=== PATIENT | female | born 1955 | race Caucasian/White ===

== ENCOUNTER 2018-03-03 20:46 | Emergency (ER) | payer OTHER, MEDICARE ==
[2018-03-03] MEDS: AUGMENTIN 875 MG TAB PO (21:48)
== END 2018-03-03 21:54 | disposition home or self-care (01) ==
LOC: M ED 20:46
DX: S51.851A Open bite of right forearm, initial encounter (principal); M70.32 Other bursitis of elbow, left elbow; W54.0XXA Bitten by dog, initial encounter; W22.09XA Striking against other stationary object, initial encounter; Y92.89 Other specified places as the place of occurrence of the external cause; F32.9 Major depressive disorder, single episode, unspecified; G43.909 Migraine, unspecified, not intractable, without status migrainosus; M79.7 Fibromyalgia; Z79.899 Other long term (current) drug therapy; Z79.84 Long term (current) use of oral hypoglycemic drugs; Z79.82 Long term (current) use of aspirin; F17.210 Nicotine dependence, cigarettes, uncomplicated
CPT/HCPCS: 99282

== ENCOUNTER → 2019-04-30 | Outpatient (REF) | payer OTHER ==
[~2019-04-30] MED LIST: ASPI1CHW2; AUGM875T28 PO; CEPH500C; FEXO180T58; GLUCCAP13; HYDR-3713; IPRAT; LISI-538; MELO15TA28; METF500T13; PROBCAP2 PO; ROPI1TAB; SM M250T; TRAZ150T90; VENL75TA2
== END ==
LOC: M LAB REF 10:51
PROVIDERS: ATTEND Dermatology
DX: D48.5 Neoplasm of uncertain behavior of skin (principal)

== ENCOUNTER → 2019-09-17 | Outpatient (CLI) | payer OTHER ==
[~2019-09-17] MED LIST changes: -ROPI1TAB; +ROPI1TAB3
--- NOTE | 2019-09-29 02:57 | ECWPNPC ---
PATIENT NAME: KELLY BLEVINS : 1955 GENDER: FEMALE VISIT DATE: 09/17/2019 DISCHARGE DATE: 09/17/19 1222 VISIT LOCKED DATE TIME: PHYSICIAN: JORGE A SHAH MD RESOURCE: JORGE A SHAH MD REASON FOR APPOINTMENT 1. NECK/BACK HISTORY OF PRESENT ILLNESS NEW PATIENT CONSULT: WHEN DID YOUR PAIN FIRST START? . BRIEFLY DESCRIBE HOW YOUR PAIN STARTED? . HOW DOES YOUR PAIN CHANGE WITH TIME? . DOES YOUR PAIN AWAKEN YOU FROM SLEEP? . HOW MANY HOURS OF SLEEP DO YOU NORMALLY GET? . ANY DIAGNOSTIC TESTING? . FACILITY WHERE TESTS WERE DONE? ____. PAIN TREATMENT TREATMENT YES CANCER HAVE YOU EVER HAD ANY TYPE OF CANCER?NO NO. 63 YEAR OLD FEMALE PATIENT WITH A HISTORY OF CHRONIC MULTIPLE BODY PAIN. THE PATIENT DESCRIBES THE PAIN ACHING, BURNING, SHARP, TENDER, SHOOTING WITH A PAIN SCORE OF 6-10/10 DEPENDING ON PHYSICAL ACTIVITY. THE PATIENT STATES SHE HAS PAIN OVER MULTIPLE AREAS OF HER BODY, BUT THE WORST PAIN IS IN HER LOWER BACK. THE PATIENT SAYS SHE WAS DIAGNOSED WITH FIBROMYALGIA AND HAS TRIED INTERVENTIONS, SUCH TRIGGER POINT INJECTIONS, BUT HER PAIN PERSISTS. THE PATIENT SAYS SHE IS CURRENTLY USING IBUPROFEN 800 MG 1 TABLET NEEDED UP TO 3 TIMES DAILY AND MELOXICAM 15 MG ONCE DAILY, AND SHE WAS ALSO PREVIOUSLY USING HYDROCODONE-ACETAMINOPHEN 5-325 MG BUT WAS NOT PRESCRIBED IT IN THE LAST 3 MONTHS. PATIENT DENIES UNEXPLAINABLE WEIGHT LOSS, FEVER, CHILLS, NEW CHANGES ON HER URINARY OR BOWEL CONTROL. PAIN SCREENING: PATIENT HAS A COMPLAINT OF ACUTE OR CHRONIC PAIN :YES FALL RISK SCREENING: SCREENING : NO FALLS IN THE PAST YEAR. LANDON INVENTORY: QUESTIONNAIRE ASSESSEDTBD SCORE VALUE CALCULATED TBD CURRENT MEDICATIONS TAKING IBUPROFEN 800 MG TABLET 1 TABLET WITH FOOD OR MILK NEEDED ORALLY THREE TIMES A DAY TAKING OXYBUTYNIN CHLORIDE 5 MG TABLET 1 TABLET ORALLY 3 TIMES A DAY TAKING TAB-A-MARGY - TABLET 1 TABLET ORALLY ONCE A DAY TAKING VENLAFAXINE HCL 75 MG TABLET 1 TABLET WITH FOOD ORALLY TWICE A DAY TAKING TOPIRAMATE 50 MG TABLET 1 TABLET ORALLY TWICE A DAY TAKING MELOXICAM 15 MG TABLET 1 TABLET ORALLY ONCE A DAY TAKING TRAZODONE HCL 150 MG TABLET 1 TABLET AT BEDTIME NEEDED ORALLY ONCE A DAY TAKING LISINOPRIL 20 MG TABLET 1 TABLET ORALLY ONCE A DAY TAKING ASPIR-LOW 81 MG TABLET DELAYED RELEASE 1 TABLET ORALLY ONCE A DAY TAKING GLUCOSAMINE-MSM COMPLEX-COLLGN - CAPSULE 1000 MG ORALLY DAILY TAKING MAGNESIUM 400 MG CAPSULE 2 TABLETS ORALLY ONCE A DAY TAKING ROPINIROLE HCL 1 MG TABLET 1 TABLET 1 TO 3 HOURS BEFORE BEDTIME ORALLY ONCE A DAY TAKING ANORO ELLIPTA 62.5-25 MCG/INH AEROSOL POWDER BREATH ACTIVATED 1 PUFF INHALATION ONCE A DAY TAKING HYDROCODONE-ACETAMINOPHEN 5-325 MG TABLET 1 TABLET NEEDED ORALLY EVERY 6 HOURS NEEDED NOT-TAKING AMOXICILLIN 500 MG CAPSULE 1 CAPSULE ORALLY TWO TIMES A DAY NOT-TAKING FROVA 2.5 MG TABLET 1 TABLET NEEDED ONE TIME ORALLY ONCE A DAY NOT-TAKING CEPHALEXIN 500 MG CAPSULE 2 CAPSULES ORALLY EVERY 12 HRS MEDICATION LIST REVIEWED AND RECONCILED WITH THE PATIENT PAST MEDICAL HISTORY DIABETES TYPE II ANXIETY DEPRESSION FIBROMYALGIA INSOMNIA CHRONIC BACK PAIN CHRONIC NECK PAIN OBESITY TINNITUS 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 HYPERTENSION ALLERGIES PERCOCET: SPACEY, CONFUSION - SIDE EFFECTS SURGICAL HISTORY EXCISION LEFT NOSE BCC 1986 APPENDECTOMY 1974 BILATERAL CARPAL TUNNEL SURGERY BILATERAL CATARACT SURGERY 1994 LAMINECTOMY C2-C5 1999 LEFT KNEE REPLACEMENT 2012 FAMILY HISTORY FATHER: 54 YRS, ME MOTHER: ALIVE 84 YRS, DEMENTIA, DIAGNOSED WITH DIABETES, HYPERTENSION SIBLINGS: ALIVE, BROTHER-DEPRESSION, EARLY ONSET OF DEMENTIA SISTER-DEPRESSION PATERNAL GRAND FATHER: ME PATERNAL GRAND MOTHER: GLAUCOMA, MUSCULAR DEGENERATION MATERNAL GRAND FATHER: ME MATERNAL GRAND MOTHER: PANCREATIC CA,GLAUCOMA, HYPERTENSION, OTHER MALIGNANT NEOPLASM OF UNSPECIFIED SITE DENIES FAMILY HX OF MM. SOCIAL HISTORY GENERAL: TOBACCO USE ARE YOU A:CURRENT SMOKER ARE YOU INTERESTED IN QUITTING?NOT READY TO QUIT COUNSELED THE PATIENT ON SMOKING EFFECTS, EDUCATION [id number]/27/2020 HOW MANY CIGARETTES A DAY DO YOU SMOKE?21-30 PATIENT COUNSELED ON THE DANGERS OF TOBACCO USE AND URGED TO QUIT:09/17/2019 HAVE YOU HAD A PNEUMOVAX VACCINE?YES 07/2017 VAPORNO E-CIGARETTENO HIV / HEP-C SCREENING HIV TEST OFFERED TO PATIENT:YES DATE OFFERED:06/10/2017 TEST ACCEPTED:NO HEP-C TEST OFFERED TO PATIENT:YES DATE OFFERED:06/10/2017 REASON:PATIENT DECLINED TEST ACCEPTED:NO REASON:PATIENT DECLINED OTHERS AT HOME: SON AND GRANDDAUGHTER. EDUCATION LEVEL OF EDUCATION:CRIMINAL COURT JUDGE'S DEGREE IN BUSINESS MANAGEMENT DIET: REGULAR. LANGUAGE LANGUAGES SPOKEN:ISRAELI DOMESTIC VIOLENCE DO YOU FEEL SAFE IN YOUR ENVIRONMENT?YES NEW PATIENT PAIN DIARY PATIENT DESCRIBES PAIN :ACHING, BURNING, SHARP, TENDER, SHOOTING FROM 0-10, WHAT LEVEL IS YOUR PAIN TODAY?9 PRECIPITATING FACTORS MOVEMENT, STANDING, BENDING, LIFTING ALLEVIATING FACTORS SITTING, LYING DOWN, MEDICATION, OCCASIONALLY HEAT IMPACT ON FUNCTION DIFFICULT TO STAND TO DO DISHES, GETTING OUT OF BATHTUB OR SHOWER, GOING UP OR DOWN STAIRS, SHOPPING IS THERE A CHANCE YOU COULD BE ?NO HAVE YOU BEEN SICK IN THE LAST WEEK (COLD, COUGH, FEVER, FLU, ETC)YES DO YOU TAKE ANY BLOOD THINNERS?NO DO YOU HAVE ANY RASHES OR OPEN SORES?NO ANY CHANGE IN BOWEL OR BLADDER CONTROL?YES BLADDER - FREQUENCY FOR 1 MONTH. [facility] WILL NOTIFY PRIMARY CARE PROVIDER. [facility] HAS SOME INCONTINENCE FOR PAST 6 MONTHS. ARE YOU ALLERGIC TO SHELLFISH OR IV DYE?NO ARE YOU DIABETIC?YES DO YOU HAVE A PACEMAKER OR DEFIBRILLATOR?NO ANY NEW PATTERNS OF PAIN OR NUMBNESS?YES PAIN IN NECK WHEN TURNS TO RIGHT SIDE AND LEFT UPPER ARM STIFFNESS FOR MORE THAN 1 MONTH HAVE YOU FALLEN IN THE LAST 6 MONTHS?NO DO YOU USE ANY TYPE OF TOBACCO (SMOKE, SMOKELESS, CHEW, ETC.)YES ARE YOU ABUSED, NEGLECTED, OR IN AN UNSAFE ENVIRONMENT?NO DO YOU HAVE THOUGHTS OF HURTING YOURSELF OR SOMEONE ELSE?NO DO YOU NEED ANY PRESCRIPTIONS?YES HYDROCODONE 5/325 MG DO YOU HAVE ANY OTHER QUESTIONS OR CONCERNS?NO INTENSITY SCALE REVIEWEDNUMBER RECREATIONAL DRUG USE DRUG USE?NO PATIENT DENIES ABUSE OR MISSUSED OF ANY MEDICATION NO MISUSE OF MEDICATIONS. PATIENT DENIES USE OF ANY ILLEGAL SUBSTANCE INCLUDING MARIJUANA OR COCAINE NO MARIJUANA OR COCAINE. [facility] USED MARIJUANA TEENAGER ONLY. EXERCISE: NO REGULAR EXERCISE. 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 PENITENTIARY NEEDED?NO PAIN CLINIC PFS, CLERGY, PUBLIC HEALTH REFERRALS PFS REFERRAL NEEDED?NO CLERGY REFERRAL NEEDED?NO PUBLIC HEALTH REFERRAL NEEDED?NO WAS THE PROVIDER NOTIFIED OF ANY PERTINENT INFO?NO HAS THE PATIENT BEEN EDUCATED REGARDING HIS/HER PLAN OF CARE?YES HAS THE PATIENT BEEN EDUCATED REGARDING PAIN, THE RISK FOR PAIN, THE IMPORTANCE OF EFFECTIVE PAIN MANAGEMENT, AND THE PAIN ASSESSMENT PROCESS?YES LATEX QUESTIONNAIRE LATEX ALLERGY : HAVE YOU EVER DEVELOPED ANY TYPE OF REACTION AFTER HANDLING LATEX PRODUCTS SUCH RUBBER GLOVES, CONDOMS, DIAPHRAGMS, BALLOONS, SOCKS, OR UNDERWEAR?NO LATEX ALLERGY : HAVE YOU EVER DEVELOPED ANY TYPE OF REACTION DURING OR AFTER DENTAL APPOINTMENT, VAGINAL/RECTAL EXAMINATION, SURGICAL PROCEDURE, OR ANY OTHER EXPOSURE?NO DATE ASKED : 04/30/2019 LATEX RISK : HAVE YOU EVER HAD ANY DIFFICULTY BREATHING OR HIVES AFTER EATING OR HANDLING ANY FRUITS, OR VEGETABLES; SUCH KIWI, BANANAS, STONE FRUITS, OR CHESTNUTSNO LATEX RISK : DO YOU HAVE A PREVIOUS PERSONAL HISTORY OF MORE THAN NINE SURGERIES, SPINA BIFIDA, OR REPEATED CATHERIZATIONS? NO LATEX RISK : ARE YOU FREQUENTLY EXPOSED TO LATEX PRODUCTS IN YOUR OCCUPATION?NO CAFFEINE CAFFEINE USE?YES HOW OFTEN AND HOW MUCH? 8 CUPS OF HALF-CAFF COFFEE PER DAY ADVANCE DIRECTIVE ADVANCE DIRECTIVE DISCUSSED WITH PATIENT:YES INFORMATION OFFERED AND DECLINED. RASTAFARI [id number] MANDAEN MARITAL STATUS: . 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 HOSPITALIZATION/MAJOR DIAGNOSTIC PROCEDURE SURGERIES CHILDBIRTH 1977 REVIEW OF SYSTEMS REVIEWED BY: PROVIDER: JORGE A SHAH MD . CONSTITUTIONAL: ANY CHANGE IN YOUR MEDICAL CONDITION? NO . CHILLS NO . FEVER NO . INFECTION: DO YOU HAVE NEW INFECTIONS? NO . DO YOU HAVE HISTORY OF MRSA? NO . MUSCULOSKELETAL: ANY NEW PATTERNS OF PAIN OR NUMBNESS? YES . SYTEMIC LUPUS STATES HAS LUPUS-LIKE ANTIBODIES BUT WAS TOLD IS PROBABLY DUE TO FIBROMYALGIA . GASTROENTEROLOGY: ANY NEW CHANGE IN BOWEL CONTROL? NO . BARRETTS ESOPHAGUS NO . CIRRHOSIS NO . HEPATITIS NO . LIVER FAILURE NO . ACID REFLUX NO . UNEXPLAINED WEIGHT LOSS NO . GENITOURINARY: ANY NEW CHANGE IN BLADDER CONTROL? YES . IS THERE A CHANCE YOU COULD BE ? NO . HEMATOLOGY/LYMPH: DO YOU TAKE ANY BLOOD THINNERS? (FOR EXAMPLE- COUMADIN, PLAVIX, AGGRENOX, PLATEL, PRADAXA, OR XARELTO) NO . WHEN WAS YOUR LAST DOSE? DATE: TIME: . LOW PLATELET COUNT NO . SICKLE CELL DISEASE NO . VON WILLIEBRANDS NO . FACTOR V LEIDEN NO . THALLASEMIA NO . ANEMIA NO . EASY BRUISING YES . NEUROLOGY: HAVE YOU FALLEN IN THE PAST 12 MONTHS? NO . ANY NEW EXTREMITY NUMBNESS OR WEAKNESS? NO . HEAD INJURY YES - FELL DOWN A FLIGHT OF STAIRS AT AGE 3 - HAD EPILEPSY UNTIL AGE 17 . DEMENTIA NO . CEREBRAL PALSY NO . MULTIPLE SCLEROSIS NO . DIZZINESS YES . HEADACHE NO . STROKES YES . VERTIGO YES . CARDIOLOGY: DO YOU HAVE A PACEMAKER OR DEFIBRILLATOR? NO . ANGINA NO . HEART ATTACK NO . HEART SURGERY NO . CONGESTIVE HEART FAILURE/FLUID OVERLOAD NO . CHEST PAIN NO . HIGH BLOOD PRESSURE YES . IRREGULAR HEART BEAT NO . RESPIRATORY: HAVE YOU BEEN SICK IN THE PAST WEEK? YES - SINUS INFECTION . FEVER NO . FLU LIKE SYMPTOMS? NO . CPAP NO . BYPAP NO . ASTHMA NO . EMPHYSEMA NO . CHRONIC LUNG DISEASES NO . SHORTNESS OF BREATH ON EXERTION YES . DO YOU USE ANY TYPE OF TOBACCO (SMOKE, SMOKELESS, CHEW)? YES . COUGH NO . SNORING NO . INTEGUMENTARY: DO YOU HAVE ANY RASHES OR OPEN SORES? NO . ALLERGIC/IMMUNO: ARE YOU ALLERGIC TO IV DYE? NO . ANY NEW ALLERGIES? NO . PSYCHIATRIC: DO YOU HAVE THOUGHTS OF HURTING YOURSELF OR SOMEONE ELSE? NO . ARE YOU ABUSED, NEGLECTED, OR IN AN UNSAFE ENVIRONMENT? NO . ENDOCRINOLOGY: ARE YOU DIABETIC? YES . THYROID DISORDER NO . OTHER: DO YOU NEED ANY PRESCRIPTIONS? NO . IF YES, PLEASE LIST: ____ . ANY NEW PROBLEMS WITH YOUR MEDICATIONS? NO . WHEN DID YOU LAST EAT? ____ . WHEN DID YOU LAST DRINK? ____ . WHAT DID YOU LAST DRINK? ____ . NAME OF PERSON DRIVING YOU HOME? ____ . DO YOU HAVE ANY OTHER QUESTIONS OR CONCERNS NO . VITAL SIGNS WT 289 LBS, HT 66 IN, BMI 46.64 INDEX, BP 145/64 MM HG, HR 64 /MIN, RR 18 /MIN, TEMP 96.6 F, OXYGEN SAT % 91%, NA INITIALS AW 0950, REVIEWED BY: LS. EXAMINATION GENERAL EXAMINATION: PATIENT IS ALERT O X 3 AND COOPERATIVE. LUNGS CLEAR, TO AUSCULTATION. HEART: NO MURMURS OR GALLOPS; FACIAL CRANIAL NERVES ARE GROSSLY NORMAL. GOOD SYMMETRY OF FACIAL MUSCLE MOVEMENT. NORMAL VISUAL GRIMM. ANTALGIC WALK. PATIENT IS LIMPING FROM THE LEFT LEG, WHICH IS WEAKER AT EXTENSION AND FLEXION. STRAIGHT LEG RAISE OF THE LEFT LEG IS POSITIVE AT 60 DEGREES FOR RADICULOPATHY. TENDERNESS OVER THE PARASPINAL MUSCLE GROUP OF THE LOW BACK. PRESENCE OF BANDS OF TISSUE AND TRIGGER POINTS WITH RESTRICTION OF MOVEMENT OF THE LOW BACK AREA. ASSESSMENTS MYALGIA, OTHER SITE - M79.18 (PRIMARY) LOW BACK PAIN - M54.5 OTHER CHRONIC PAIN - G89.29 PAIN OF MULTIPLE SITES - R52 FIBROMYALGIA - M79.7 TREATMENT MYALGIA, OTHER SITE CLINICAL NOTES: WE DISCUSSED SEVERAL ISSUES WITH MS. BLEVINS'S PAIN MANAGEMENT CASE. DUE TO THE TRIGGER POINTS, BANDS OF TISSUE, AND RESTRICTION OF MOVEMENT, I WOULD LIKE TO MOVE FORWARD WITH A LOW BACK TRIGGER POINT INJECTION AT THIS TIME. WE DISCUSSED THE BENEFITS, RISKS, AND ALTERNATIVES OF THE INJECTION AND THE PATIENT WOULD LIKE TO PROCEED. I AM LOOKING FOR LONG LASTING PAIN RELIEF FROM THIS INJECTION FOR THE PATIENT. I AM ALSO ORDERING FOR AN UPDATED LUMBAR MRI TO BE DONE SINCE THE LAST MRI WAS PERFORMED OVER 10 YEARS AGO, WHICH I WILL REQUEST FOR A COPY OF IN [place], [place]. AN OPEN MRI WILL BE REQUESTED DUE TO THE PATIENT'S HISTORY OF CLAUSTROPHOBIA. THE PATIENT HAS TRIED MULTIPLE MEDICATIONS AND HAS FOUND THAT HYDROCODONE-ACETAMINOPHEN 5-325 MG HELPS WITH HER PAIN, THEREFORE I WILL REQUEST FOR A NARCOTIC [id number] AGREEMENT WITH THE PATIENT'S PRIMARY CARE PROVIDER. I MAY ALSO CONSIDER BUTRANS PATCH AN ALTERNATIVE. I DISCUSSED WITH THE PATIENT AND ADVISED HER NOT TO USE IBUPROFEN TOGETHER WITH MELOXICAM SINCE BOTH ARE NSAID'S, TO USE IBUPROFEN ONLY ON AN NEEDED BASIS, AND ALSO TO USE EACH WITH FOOD TO AVOID ANY GASTRIC ISSUES. THE PATIENT WILL FOLLOW UP WITH THE NURSE PRACTITIONER FOR MEDICATION MANAGEMENT IN SEVERAL WEEKS. INSTRUCTIONS WERE GIVEN, QUESTIONS WERE ANSWERED, PATIENT REPORTS UNDERSTANDING AND AGREES WITH THE PLAN. I, MARGE JAIN, DOCUMENTED THE ABOVE INFORMATION ACTING A SCRIBE FOR DR. SHAH. I HAVE REVIEWED THE ABOVE DOCUMENT, WRITTEN BY MARGE FISCHER AND I VERIFY THAT IT IS ACCURATE. [facility]: THANK YOU FOR YOUR KIND REFERRAL OF KELLY BLEVINS. IF YOU WANT TO DISCUSS HER CASE WITH ME PLEASE CALL ME AT THE PAIN CENTER AT [phone]. SINCERELY, JORGE A SHAH MD PAIN MEDICINE . LOW BACK PAIN [facility] MRI LUMBAR W/O CONTRAST (CPT [id number] JAIN 09/20/2019 12:09:05 PM > NEEDS OPEN MRI DUE TO HISTORY OF CLAUSTROPHOBIA. THANK YOU MARLEEN DRUMMOND 09/20/2019 1:09:13 PM > MRI LUMBAR SPINE W/O CONTRAST WAS APPROVED AUTH [id number] ABEBE FROM 09/20/19-12/19/19. OTHERS NOTES: TRIGGER POINT INJECTION, TRIGGER POINT INJECTION HOME CARE MATERIAL WAS PUBLISHED TO [facility],TRIGGER POINT INJECTION MATERIAL WAS PRINTED,TRIGGER POINT INJECTION HOME CARE MATERIAL WAS PRINTED. PROCEDURE CODES FA211 ESTABILISHED PATIENT [facility] FAC[facility] CHARGE G8427 CURRENT MEDS W/DOSAGES DOCUMENTED G8730 PAIN ASSESS POS TOOL F/U PLAN DOC DISPOSITION & COMMUNICATION FOLLOW UP 4 WEEKS (REASON: F/UP WITH ENGINEERING DESIGNER FOR MEDS) ELECTRONICALLY SIGNED BY JORGE A SHAH MD, MD ON 09/28/2019 AT 04:56 PM EDT DISCLAIMER : THIS IS A VISIT SUMMARY EXTRACTED FROM THE [employer] CHART. IT IS NOT A COPY OF THE [employer] PROGRESS NOTE. MTDD
== END ==
LOC: M PAIN 09:45
PROVIDERS: ATTEND Anesthesiology
DX: M79.18 Myalgia, other site (principal); M54.5 Low back pain; G89.29 Other chronic pain; M79.7 Fibromyalgia; E11.9 Type 2 diabetes mellitus without complications; Z86.59 Personal history of other mental and behavioral disorders; G47.00 Insomnia, unspecified; I10 Essential (primary) hypertension; Z96.652 Presence of left artificial knee joint; F17.210 Nicotine dependence, cigarettes, uncomplicated; Z88.5 Allergy status to narcotic agent; E66.01 Morbid (severe) obesity due to excess calories; Z68.42 Body mass index [BMI] 45.0-49.9, adult; Z79.82 Long term (current) use of aspirin; Z79.51 Long term (current) use of inhaled steroids; Z79.899 Other long term (current) drug therapy

== ENCOUNTER → 2019-09-27 | Outpatient (CLI) | payer OTHER ==
[~2019-09-27] MED LIST changes: +E-Z-GAS II EFFERVESCENT PACKET (SODIUM BICARB./CITRIC ACID/SIMETHICONE) As Ordered ONE; +E-Z-HD 98% w/w 340GM SUSP BTL As Ordered ONE; +E-Z-PAQUE 96% w/w SUSP 176GM BTL As Ordered ONE
--- NOTE | 2019-09-27 10:26 | REP ---
Examination Requested: Esophagram Barium Swallow Reason For Exam/Comment: Dysphagia Esophagram: The procedure was performed ANGEL Garcia, under the direct supervision of Dr. Watkins. The images were reviewed with Dr. Watkins. A single PA chest x-ray is submitted as a graduate teaching associate film. The superior mediastinal structures are midline. The heart size is within normal limits. The lungs are clear. Liquid barium and gas producing granules were given in the erect position as well as liquid barium in the prone oblique position, in order to perform a double contrast esophagram examination. Oral and pharyngeal stages of the examination were unremarkable. Esophageal transport is efficient and there is no esophagitis, stricture, or mucosal ring noted. There is no hiatal hernia noted. Gastroesophageal reflux was visualized to the level of the bishnu. Impression: 1. Gastroesophageal reflux to the level of the bishnu. 0.2 minutes of fluoroscopy time was utilized for this procedure. Some fluoroscopic images are performed with last image hold technology. These images require no additional radiation. Reviewed by ANGEL Burgos 09/27/2019 09:49 A Electronically Signed by Jh Watkins MD 09/27/2019 10:17 A
== END ==
LOC: M RAD 07:30
PROVIDERS: ATTEND Internal Medicine Gastroenterology
DX: R13.10 Dysphagia, unspecified (principal)

== ENCOUNTER → 2019-09-28 | Outpatient (REF) | payer OTHER ==
[~2019-09-28] MED LIST changes: -E-Z-GAS II EFFERVESCENT PACKET (SODIUM BICARB./CITRIC ACID/SIMETHICONE) As Ordered ONE; -E-Z-HD 98% w/w 340GM SUSP BTL As Ordered ONE; -E-Z-PAQUE 96% w/w SUSP 176GM BTL As Ordered ONE
[2019-09-28 13:24] LABS: BASO # 0.1 10^3/uL (0.0-0.2); BASO % 0.7 % (0.0-1.0); EOS # 0.6 10^3/uL (0.0-0.5); EOS % 4.8 % (0.0-3.0); HEMATOCRIT 54.1 % (36.0-47.0); HEMOGLOBIN 17.8 g/dl (12.0-15.5); LYMPH # 3.6 10^3/uL (1.5-5.0); LYMPH % 26.6 % (24.0-44.0); MEAN CORPUSCULAR HEMOGLOBIN 32.6 pg (27.0-33.0); MEAN CORPUSCULAR HGB CONC 32.9 g/dl (32.0-36.5); MEAN CORPUSCULAR VOLUME 99.1 fl (80.0-96.0); MONO # 0.8 10^3/uL (0.0-0.8); MONO % 6.2 % (0.0-5.0); NEUTROPHILS # 8.3 10^3/uL (1.5-8.5); NEUTROPHILS % 61.3 % (36.0-66.0); PLATELET COUNT, AUTOMATED 325 10^3/uL (150-450); RED BLOOD COUNT 5.46 10^6/uL (4.00-5.40); WHITE BLOOD COUNT 13.5 10^3/uL (4.0-10.0)
[2019-09-28 13:36] LABS: ALBUMIN 3.4 GM/DL (3.2-5.2); ALT/SGPT 28 U/L (12-78); BILIRUBIN,TOTAL 0.3 MG/DL (0.2-1.0); BLOOD UREA NITROGEN 10 MG/DL (7-18); CALCIUM LEVEL 9.5 MG/DL (8.8-10.2); CARBON DIOXIDE LEVEL 33 MEQ/L (21-32); CHLORIDE LEVEL 104 MEQ/L (98-107); CHOLESTEROL LEVEL 192 MG/DL (<200); CHOLESTEROL RISK RATIO 4.571 (<5); CREATININE FOR GFR 0.83 MG/DL (0.55-1.30); GLOMERULAR FILTRATION RATE > 60.0 (>45); GLUCOSE, FASTING 105 MG/DL (70-100); HDL CHOLESTEROL 42 MG/DL (>40); LDL CHOLESTEROL 118 MG/DL (<100); NON-HDL-C 150 MG/DL; POTASSIUM SERUM 5.1 MEQ/L (3.5-5.1); SODIUM LEVEL 140 MEQ/L (136-145); THYROID STIMULATING HORMONE 0.798 uIU/ML (0.358-3.740); TOTAL PROTEIN 7.8 GM/DL (6.4-8.2); TRIGLYCERIDES LEVEL 162 MG/DL (<150)
[2019-09-28 13:38] LABS: TOTAL 25(OH) VITAMIN D 23.7 NG/ML (30.0-100.0)
[2019-09-28 13:58] LABS: HEMOGLOBIN A1c 6.4 %
== END ==
LOC: M LAB REF 12:14
PROVIDERS: ATTEND Nurse Practitioner Family
DX: Z13.9 Encounter for screening, unspecified (principal); E11.9 Type 2 diabetes mellitus without complications; I10 Essential (primary) hypertension; J44.9 Chronic obstructive pulmonary disease, unspecified; B99.9 Unspecified infectious disease; J06.9 Acute upper respiratory infection, unspecified

== ENCOUNTER → 2019-10-08 | Outpatient (CLI) | payer OTHER ==
--- NOTE | 2019-10-08 12:46 | REP ---
MRI LUMBAR SPINE: TECHNIQUE: Multiple sequences obtained in the sagittal and axial planes. No compression deformity is seen. There is slight anterior listhesis of L3 on L4 approximately 2 mm. No other malalignment is seen. There is diffuse loss of water signal and disc degeneration. There is mild to moderate disc space narrowing at L3-4, L4-5 and L5-S1. Mild degenerative signal is seen along the endplates at the L5-S1 disc level. The conus is unremarkable. At the L1-2 level, there is no significant disc bulging or herniation. There is mild hypertrophic change in the posterior facets. There is no spinal stenosis or foraminal narrowing. At L2-3, there is not significant disc bulging or herniation. There is no spinal stenosis. There is no neural foraminal narrowing. There are mild hypertrophic changes at the posterior facet joints. At L3-4, there is moderate diffuse disc bulging, slightly asymmetrically more so to the left of midline. There are moderate hypertrophic degenerative changes of the posterior facets with hypertrophy and ligamentum flavum. There is moderate spinal stenosis at this level. There is mild bilateral foraminal narrowing. At L4-5, there is broad-based lateral disc bulging and central disc protrusion. There is moderate hypertrophic change at the posterior facets and hypertrophy of the ligamentum flavum. There is mild spinal stenosis. There mild lateral recess stenosis. At L5-S1, there is moderate diffuse disc bulging and moderate hypertrophic change at the posterior facets. There is slight effacement of the anterior thecal sac. There is mild bilateral foraminal narrowing. IMPRESSION: Degenerative disc change with variable disc bulging and disc protrusions at L3-4, L4-5 and L5-S1. There is moderate spinal stenosis at the L3-4 level. There mild spinal stenosis and lateral recess stenosis on the left at the L4-5 level. There is mild effacement of the anterior thecal sac at L5-S1. There are areas of foraminal narrowing as discussed above. Electronically Signed by Jh Watkins MD 10/08/2019 04:50 P
== END ==
LOC: M RAD 09:08
PROVIDERS: ATTEND Anesthesiology
DX: M54.5 Low back pain (principal)

== ENCOUNTER → 2019-10-11 | Outpatient (CLI) | payer OTHER ==
--- NOTE | 2019-10-12 23:49 | ECWPNPC ---
PATIENT NAME: KELLY BLEVINS : 1955 GENDER: FEMALE VISIT DATE: 10/11/2019 DISCHARGE DATE: 10/11/19956 VISIT LOCKED DATE TIME: PHYSICIAN: MIMI BHAKTA RESOURCE: MIMI BHAKTA REASON FOR APPOINTMENT 1. REVIEW MRI HISTORY OF PRESENT ILLNESS HISTORY OF PRESENT ILLNESS: HERE FOR FOLLOW-UP OF CHRONIC GENERALIZED BACK PAIN AFTER INITIAL EVALUATION IN AUGUST. MRI OF THE LS SPINE ORDERED AT INITIAL VISIT IS REVIEWED WITH PATIENT. SHOWING MULTILEVEL DEGENERATIVE CHANGES AND NEURAL FORAMINAL IMPINGEMENT. CHIEF AREA OF PAIN IS LOW BACK. REPORTS INTERMITTENT LEFT LEG LATERAL LEG PAIN AND WEAKNESS. STATES SHE FEELS LIKE SHE IS STUMBLING MORE OFTEN. NO FALLS. HISTORY OF FIBROMYALGIA. RATING PAIN VAS 9/10. DISCUSSED MEDICATION AND TREATMENT OPTIONS. HAS APPOINTMENT WITH PULMONOLOGY FOR UPCOMING SLEEP STUDY TO RULE OUT SLEEP APNEA. PAIN THE PATIENT DESCRIBES THE PAIN... FALL RISK SCREENING: SCREENING :NO FALLS REPORTED IN THE LAST YEAR CURRENT MEDICATIONS TAKING OXYBUTYNIN CHLORIDE 5 MG TABLET 1 TABLET ORALLY 3 TIMES A DAY TAKING TAB-A-MARGY - TABLET 1 TABLET ORALLY ONCE A DAY TAKING VENLAFAXINE HCL 75 MG TABLET 1 TABLET WITH FOOD ORALLY TWICE A DAY TAKING TOPIRAMATE 50 MG TABLET 1 TABLET ORALLY TWICE A DAY TAKING MELOXICAM 15 MG TABLET 1 TABLET ORALLY ONCE A DAY TAKING TRAZODONE HCL 150 MG TABLET 1 TABLET AT BEDTIME NEEDED ORALLY ONCE A DAY TAKING LISINOPRIL 20 MG TABLET 1 TABLET ORALLY ONCE A DAY TAKING ASPIR-LOW 81 MG TABLET DELAYED RELEASE 1 TABLET ORALLY ONCE A DAY TAKING GLUCOSAMINE-MSM COMPLEX-COLLGN - CAPSULE 1000 MG ORALLY DAILY TAKING MAGNESIUM 400 MG CAPSULE 2 TABLETS ORALLY ONCE A DAY TAKING ROPINIROLE HCL 1 MG TABLET 1 TABLET 1 TO 3 HOURS BEFORE BEDTIME ORALLY ONCE A DAY TAKING ANORO ELLIPTA 62.5-25 MCG/INH AEROSOL POWDER BREATH ACTIVATED 1 PUFF INHALATION ONCE A DAY TAKING AMOXICILLIN 1 TAB ORAL NOT-TAKING IBUPROFEN 800 MG TABLET 1 TABLET WITH FOOD OR MILK NEEDED ORALLY THREE TIMES A DAY NOT-TAKING HYDROCODONE-ACETAMINOPHEN 5-325 MG TABLET 1 TABLET NEEDED ORALLY EVERY 6 HOURS NEEDED NOT-TAKING AMOXICILLIN 500 MG CAPSULE 1 CAPSULE ORALLY TWO TIMES A DAY NOT-TAKING FROVA 2.5 MG TABLET 1 TABLET NEEDED ONE TIME ORALLY ONCE A DAY NOT-TAKING CEPHALEXIN 500 MG CAPSULE 2 CAPSULES ORALLY EVERY 12 HRS MEDICATION LIST REVIEWED AND RECONCILED WITH THE PATIENT PAST MEDICAL HISTORY DIABETES TYPE II ANXIETY DEPRESSION FIBROMYALGIA INSOMNIA CHRONIC BACK PAIN CHRONIC NECK PAIN OBESITY TINNITUS 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 HYPERTENSION SINUS INFECTION ALLERGIES PERCOCET: SPACEY, CONFUSION - SIDE EFFECTS SURGICAL HISTORY EXCISION LEFT NOSE BCC 1987 APPENDECTOMY 1975 BILATERAL CARPAL TUNNEL SURGERY 1980S BILATERAL CATARACT SURGERY 1994 LAMINECTOMY C2-C5 1999 LEFT KNEE REPLACEMENT 2012 FAMILY HISTORY FATHER: 54 YRS, [place] MOTHER: ALIVE 84 YRS, DEMENTIA, DIAGNOSED WITH DIABETES, HYPERTENSION SIBLINGS: ALIVE, BROTHER-DEPRESSION, EARLY ONSET OF DEMENTIA SISTER-DEPRESSION PATERNAL GRAND FATHER: AL PATERNAL GRAND MOTHER: GLAUCOMA, MUSCULAR DEGENERATION MATERNAL GRAND FATHER: AL MATERNAL GRAND MOTHER: PANCREATIC CA,GLAUCOMA, HYPERTENSION, OTHER MALIGNANT NEOPLASM OF UNSPECIFIED SITE DENIES FAMILY HX OF MM. SOCIAL HISTORY GENERAL: TOBACCO USE ARE YOU A:CURRENT SMOKER ARE YOU INTERESTED IN QUITTING?NOT READY TO QUIT COUNSELED THE PATIENT ON SMOKING EFFECTS, EDUCATION [id number]/20/2020 HOW MANY CIGARETTES A DAY DO YOU SMOKE?- PATIENT COUNSELED ON THE DANGERS OF TOBACCO USE AND URGED TO QUIT:10/11/2019 HAVE YOU HAD A PNEUMOVAX VACCINE?YES 07/2017 VAPORNO E-CIGARETTENO LATEX QUESTIONNAIRE LATEX ALLERGY : HAVE YOU EVER DEVELOPED ANY TYPE OF REACTION AFTER HANDLING LATEX PRODUCTS SUCH RUBBER GLOVES, CONDOMS, DIAPHRAGMS, BALLOONS, SOCKS, OR UNDERWEAR?NO LATEX ALLERGY : HAVE YOU EVER DEVELOPED ANY TYPE OF REACTION DURING OR AFTER DENTAL APPOINTMENT, VAGINAL/RECTAL EXAMINATION, SURGICAL PROCEDURE, OR ANY OTHER EXPOSURE?NO LATEX RISK : HAVE YOU EVER HAD ANY DIFFICULTY BREATHING OR HIVES AFTER EATING OR HANDLING ANY FRUITS, OR VEGETABLES; SUCH KIWI, BANANAS, STONE FRUITS, OR CHESTNUTSNO LATEX RISK : DO YOU HAVE A PREVIOUS PERSONAL HISTORY OF MORE THAN NINE SURGERIES, SPINA BIFIDA, OR REPEATED CATHERIZATIONS? NO LATEX RISK : ARE YOU FREQUENTLY EXPOSED TO LATEX PRODUCTS IN YOUR OCCUPATION?NO DATE ASKED : 10/11/2019 ALCOHOL SCREENING DID YOU HAVE A DRINK CONTAINING ALCOHOL IN THE PAST YEAR?NO POINTS0 INTERPRETATIONNEGATIVE RECREATIONAL DRUG USE DRUG USE?NO PATIENT DENIES ABUSE OR MISSUSED OF ANY MEDICATION NO MISUSE OF MEDICATIONS. PATIENT DENIES USE OF ANY ILLEGAL SUBSTANCE INCLUDING MARIJUANA OR COCAINE NO MARIJUANA OR COCAINE. STATES USED MARIJUANA TEENAGER ONLY. CAFFEINE CAFFEINE USE?YES HOW OFTEN AND HOW MUCH? 8 CUPS OF HALF-CAFF COFFEE PER DAY HIV / HEP-C SCREENING HIV TEST OFFERED TO PATIENT:YES DATE OFFERED:06/10/2017 TEST ACCEPTED:NO HEP-C TEST OFFERED TO PATIENT:YES DATE OFFERED:06/10/2017 REASON:PATIENT DECLINED TEST ACCEPTED:NO REASON:PATIENT DECLINED DRUZE [id number] MORMONISM LANGUAGE LANGUAGES SPOKEN:GEORGIAN EDUCATION LEVEL OF EDUCATION:NEW CAR GET READY MECHANIC'S DEGREE IN BUSINESS MANAGEMENT LEARNING BARRIERS / SPECIAL NEEDS CHANGE FROM LAST VISIT?NO BARRIERS TO LEARNING?NO HEARING IMPAIRED?NO VISION IMPAIRED?YES COGNITIVELY IMPAIRED?NO :CORRECTIVE LENSES READINESS TO LEARN?YES LEARNING PREFERENCES?NO LEARNING CAPABILITIES PRESENT?YES EMOTIONAL BARRIERS?NO SPECIAL DEVICES?YES :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 DIET: REGULAR. EXERCISE: NO REGULAR EXERCISE. MARITAL STATUS: . OTHERS AT HOME: SON AND GRANDDAUGHTER. NEW PATIENT PAIN DIARY TODAY'S VISITNOTES 10/11/2019 PATIENT DESCRIBES PAIN :ACHING, BURNING, HAVE IT ALL THE TIME, SHOOTING, OTHER NUMBING FROM 0-10, WHAT LEVEL IS YOUR PAIN TODAY?9 PAIN CLINIC PFS, CLERGY, PUBLIC HEALTH REFERRALS PFS REFERRAL NEEDED?NO CLERGY REFERRAL NEEDED?NO PUBLIC HEALTH REFERRAL NEEDED?NO WAS THE PROVIDER NOTIFIED OF ANY PERTINENT INFO?NO HAS THE PATIENT BEEN EDUCATED REGARDING HIS/HER PLAN OF CARE?YES HAS THE PATIENT BEEN EDUCATED REGARDING PAIN, THE RISK FOR PAIN, THE IMPORTANCE OF EFFECTIVE PAIN MANAGEMENT, AND THE PAIN ASSESSMENT PROCESS?YES ADVANCE DIRECTIVE ADVANCE DIRECTIVE DISCUSSED WITH PATIENT:YES PATIENT HAS NO ADVANCED DIRECTIVES AND DECLINES INFORMATION ON HCP AT THIS TIME. HOSPITALIZATION/MAJOR DIAGNOSTIC PROCEDURE SURGERIES CHILDBIRTH 1977 REVIEW OF SYSTEMS REVIEWED BY: PROVIDER: MIMI BYRNE . CONSTITUTIONAL: ANY CHANGE IN YOUR MEDICAL CONDITION? NO . CHILLS NO . FEVER NO . INFECTION: DO YOU HAVE NEW INFECTIONS? YES, SINUS INFECTION LAST WEEK, CURRENTLY ON ANTIBIOTICS . DO YOU HAVE HISTORY OF MRSA? NO . MUSCULOSKELETAL: ANY NEW PATTERNS OF PAIN OR NUMBNESS? NO . GASTROENTEROLOGY: ANY NEW CHANGE IN BOWEL CONTROL? NO . GENITOURINARY: ANY NEW CHANGE IN BLADDER CONTROL? NO . IS THERE A CHANCE YOU COULD BE ? NO . HEMATOLOGY/LYMPH: DO YOU TAKE ANY BLOOD THINNERS? (FOR EXAMPLE- COUMADIN, PLAVIX, AGGRENOX, PLATEL, PRADAXA, OR XARELTO) NO . WHEN WAS YOUR LAST DOSE? DATE: TIME: . NEUROLOGY: HAVE YOU FALLEN IN THE PAST 12 MONTHS? NO . ANY NEW EXTREMITY NUMBNESS OR WEAKNESS? YES, NUMBNESS AND WEAKNESS DOWN LEFT LEG . CARDIOLOGY: DO YOU HAVE A PACEMAKER OR DEFIBRILLATOR? NO . RESPIRATORY: HAVE YOU BEEN SICK IN THE PAST WEEK? YES, SINUS INFECTION . FEVER NO . FLU LIKE SYMPTOMS? NO . COUGH NO . INTEGUMENTARY: DO YOU HAVE ANY RASHES OR OPEN SORES? NO . ALLERGIC/IMMUNO: ARE YOU ALLERGIC TO IV DYE? NO . ANY NEW ALLERGIES? NO . PSYCHIATRIC: DO YOU HAVE THOUGHTS OF HURTING YOURSELF OR SOMEONE ELSE? NO . ARE YOU ABUSED, NEGLECTED, OR IN AN UNSAFE ENVIRONMENT? NO . ENDOCRINOLOGY: ARE YOU DIABETIC? YES, TYPE II . OTHER: DO YOU NEED ANY PRESCRIPTIONS? NO . IF YES, PLEASE LIST: ____ . ANY NEW PROBLEMS WITH YOUR MEDICATIONS? NO . WHEN DID YOU LAST EAT? ____ . WHEN DID YOU LAST DRINK? ____ . WHAT DID YOU LAST DRINK? ____ . NAME OF PERSON DRIVING YOU HOME? ____ . DO YOU HAVE ANY OTHER QUESTIONS OR CONCERNS NO . VITAL SIGNS WT 283.6 LBS, HT 66 IN, BMI 45.77 INDEX, BP 152/69 MM HG, HR 83 /MIN, RR 16 /MIN, TEMP 97.0 F, OXYGEN SAT % 96%, SAFE IN ENV? (Y/N) YES, REVIEWED BY: NURY. EXAMINATION GENERAL EXAMINATION: GENERAL AWAKE,ALERT ,PLEASANT . PSYCH AFFECT NORMAL . LUNGS: LUNG GRIMM ARE CLEAR TO AUSCULTATION BILATERALLY. GOOD MOVEMENT OF AIR . HEART: S1, S2 IN A REGULAR RATE AND RHYTHM. NO SIGNIFICANT MURMURS, RUBS OR GALLOPS NOTED . LUMBAR: PALPATION: + FOR PAIN OVER L/S SPINE. + FOR PAIN OVER L/S PARASPINALS. MODIFIED SLE: POSITIVE OVER LEFT LEG AT 45 TENDERNESS OVER BILATERAL SIJ, RIGHT GREATER THAN LEFT.. SKIN:LARGE BROWN OVAL MOLE NOTED OVER RIGHT LOW BACK 5 X 3 CM . DIAGNOSTIC TESTS REVIEWEDMRI L/S SPINE. 2019 . ASSESSMENTS OTHER OSTEOARTHRITIS OF SPINE, LUMBOSACRAL REGION - M47.897 (PRIMARY) TREATMENT OTHER OSTEOARTHRITIS OF SPINE, LUMBOSACRAL REGION START GABAPENTIN CAPSULE, 100 MG, 1 CAPSULE, ORALLY, BID, 30 DAY(S), 60 CAPSULE, REFILLS 2 NOTES: FOLLOWS WITH DERMATOLOGY AND WILL MAKE AN APPOINTMENT TO HAVE MOLE OVER RIGHT LOW BACK EVALUATED ADVISED TO USE EXTRA STRENGTH TYLENOL 500 MG 2 TABLETS UP TO 3 TIMES A DAY FOR SEVERE PAIN. START GABAPENTIN 100 MG AT NIGHTTIME X3 DAYS, THEN INCREASE TO MORNING AND NIGHT. PROCEDURE CODES FA211 ESTABILISHED PATIENT [facility] CHARGE DISPOSITION & COMMUNICATION FOLLOW UP 2 MONTHS (REASON: LBP/GENERALIZED BODY PAIN) ELECTRONICALLY SIGNED BY CHAVEZ CORDERO ON 10/12/2019 AT 08:35 AM EDT DISCLAIMER : THIS IS A VISIT SUMMARY EXTRACTED FROM THE [employer] CHART. IT IS NOT A COPY OF THE [employer] PROGRESS NOTE. NUNU
== END ==
LOC: M PAIN 09:00
PROVIDERS: ATTEND Nurse Practitioner Family
DX: M47.897 Other spondylosis, lumbosacral region (principal); G89.29 Other chronic pain; E11.9 Type 2 diabetes mellitus without complications; Z86.59 Personal history of other mental and behavioral disorders; M79.7 Fibromyalgia; G47.00 Insomnia, unspecified; I10 Essential (primary) hypertension; Z96.652 Presence of left artificial knee joint; F17.210 Nicotine dependence, cigarettes, uncomplicated; Z88.5 Allergy status to narcotic agent; E66.01 Morbid (severe) obesity due to excess calories; Z68.42 Body mass index [BMI] 45.0-49.9, adult; Z79.82 Long term (current) use of aspirin; Z79.51 Long term (current) use of inhaled steroids; Z79.899 Other long term (current) drug therapy

== ENCOUNTER → 2019-10-20 | Outpatient (CLI) | payer OTHER ==
[~2019-10-20] MED LIST changes: +BUPIVACAINE HCL 0.25% 10ML VIAL As Ordered ONE; +BUPIVACAINE HCL 0.25% 30ML VIAL As Ordered ONE
--- NOTE | 2019-10-27 01:08 | ECWPNPC ---
PATIENT NAME: KELLY BLEVINS : 1955 GENDER: FEMALE VISIT DATE: 10/20/2019 DISCHARGE DATE: 10/20/19 1403 VISIT LOCKED DATE TIME: PHYSICIAN: JORGE A SHAH MD RESOURCE: JORGE A SHAH MD REASON FOR APPOINTMENT 1. TPI HISTORY OF PRESENT ILLNESS HISTORY OF PRESENT ILLNESS: PAIN THE PATIENT DESCRIBES THE PAIN... FALL RISK SCREENING: SCREENING :NO FALLS REPORTED IN THE LAST YEAR CURRENT MEDICATIONS TAKING TYLENOL ARTHRITIS PAIN 650 MG TABLET EXTENDED RELEASE 2 TABLETS NEEDED ORALLY EVERY 8 HRS, NOTES: 10/19 5A TAKING OXYBUTYNIN CHLORIDE 5 MG TABLET 1 TABLET ORALLY 3 TIMES A DAY, NOTES: 10/19 5AM TAKING TAB-A-MARGY - TABLET 1 TABLET ORALLY ONCE A DAY, NOTES: 10/19 5AM TAKING VENLAFAXINE HCL 75 MG TABLET 1 TABLET WITH FOOD ORALLY TWICE A DAY, NOTES: 10/19 5A TAKING TOPIRAMATE 50 MG TABLET 1 TABLET ORALLY TWICE A DAY, NOTES: 10/19 5AM TAKING MELOXICAM 15 MG TABLET 1 TABLET ORALLY ONCE A DAY, NOTES: 10/18 2P TAKING TRAZODONE HCL 150 MG TABLET 1 TABLET AT BEDTIME NEEDED ORALLY ONCE A DAY, NOTES: 10/18 9P TAKING LISINOPRIL 20 MG TABLET 1 TABLET ORALLY ONCE A DAY, NOTES: 10/19 5A TAKING ASPIR-LOW 81 MG TABLET DELAYED RELEASE 1 TABLET ORALLY ONCE A DAY, NOTES: 10/19 5A TAKING GLUCOSAMINE-MSM COMPLEX-COLLGN - CAPSULE 1000 MG ORALLY DAILY, NOTES: 10/19 5A TAKING MAGNESIUM 400 MG CAPSULE 2 TABLETS ORALLY ONCE A DAY, NOTES: 10/19 5A TAKING ROPINIROLE HCL 1 MG TABLET 1 TABLET 1 TO 3 HOURS BEFORE BEDTIME ORALLY ONCE A DAY, NOTES: 10/18 9PM TAKING ANORO ELLIPTA 62.5-25 MCG/INH AEROSOL POWDER BREATH ACTIVATED 1 PUFF INHALATION ONCE A DAY, NOTES: 10/18 10A TAKING GABAPENTIN 100 MG CAPSULE 1 CAPSULE ORALLY BID, NOTES: 10/18 9P TAKING AMOXICILLIN 1 TAB ORAL TAKING IBUPROFEN 800 MG TABLET 1 TABLET WITH FOOD OR MILK NEEDED ORALLY THREE TIMES A DAY, NOTES: 2 WEEKS TAKING HYDROCODONE-ACETAMINOPHEN 5-325 MG TABLET 1 TABLET NEEDED ORALLY EVERY 6 HOURS NEEDED, NOTES: MONTHS AGO NOT-TAKING AMOXICILLIN 500 MG CAPSULE 1 CAPSULE ORALLY TWO TIMES A DAY NOT-TAKING FROVA 2.5 MG TABLET 1 TABLET NEEDED ONE TIME ORALLY ONCE A DAY NOT-TAKING CEPHALEXIN 500 MG CAPSULE 2 CAPSULES ORALLY EVERY 12 HRS MEDICATION LIST REVIEWED AND RECONCILED WITH THE PATIENT PAST MEDICAL HISTORY DIABETES TYPE II ANXIETY DEPRESSION FIBROMYALGIA INSOMNIA CHRONIC BACK PAIN CHRONIC NECK PAIN OBESITY TINNITUS 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 HYPERTENSION SINUS INFECTION ALLERGIES PERCOCET: SPACEY, CONFUSION - SIDE EFFECTS SURGICAL HISTORY EXCISION LEFT NOSE BCC 1986 APPENDECTOMY 1974 BILATERAL CARPAL TUNNEL SURGERY BILATERAL CATARACT SURGERY 1994 LAMINECTOMY C2-C5 1999 LEFT KNEE REPLACEMENT 2012 FAMILY HISTORY FATHER: 54 YRS, IN MOTHER: ALIVE 84 YRS, DEMENTIA, DIAGNOSED WITH DIABETES, HYPERTENSION SIBLINGS: ALIVE, BROTHER-DEPRESSION, EARLY ONSET OF DEMENTIA SISTER-DEPRESSION PATERNAL GRAND FATHER: IN PATERNAL GRAND MOTHER: GLAUCOMA, MUSCULAR DEGENERATION MATERNAL GRAND FATHER: IN MATERNAL GRAND MOTHER: PANCREATIC CA,GLAUCOMA, HYPERTENSION, OTHER MALIGNANT NEOPLASM OF UNSPECIFIED SITE DENIES FAMILY HX OF MM. SOCIAL HISTORY GENERAL: TOBACCO USE ARE YOU A:CURRENT SMOKER ARE YOU INTERESTED IN QUITTING?NOT READY TO QUIT COUNSELED THE PATIENT ON SMOKING EFFECTS, EDUCATION [id number]/20/2020 HOW MANY CIGARETTES A DAY DO YOU SMOKE?- PATIENT COUNSELED ON THE DANGERS OF TOBACCO USE AND URGED TO QUIT:10/19/2019 HAVE YOU HAD A PNEUMOVAX VACCINE?YES 07/2017 VAPORNO E-CIGARETTENO LATEX QUESTIONNAIRE LATEX ALLERGY : HAVE YOU EVER DEVELOPED ANY TYPE OF REACTION AFTER HANDLING LATEX PRODUCTS SUCH RUBBER GLOVES, CONDOMS, DIAPHRAGMS, BALLOONS, SOCKS, OR UNDERWEAR?NO LATEX ALLERGY : HAVE YOU EVER DEVELOPED ANY TYPE OF REACTION DURING OR AFTER DENTAL APPOINTMENT, VAGINAL/RECTAL EXAMINATION, SURGICAL PROCEDURE, OR ANY OTHER EXPOSURE?NO LATEX RISK : HAVE YOU EVER HAD ANY DIFFICULTY BREATHING OR HIVES AFTER EATING OR HANDLING ANY FRUITS, OR VEGETABLES; SUCH KIWI, BANANAS, STONE FRUITS, OR CHESTNUTSNO LATEX RISK : DO YOU HAVE A PREVIOUS PERSONAL HISTORY OF MORE THAN NINE SURGERIES, SPINA BIFIDA, OR REPEATED CATHERIZATIONS? NO LATEX RISK : ARE YOU FREQUENTLY EXPOSED TO LATEX PRODUCTS IN YOUR OCCUPATION?NO DATE ASKED : 10/19/2019 ALCOHOL SCREENING DID YOU HAVE A DRINK CONTAINING ALCOHOL IN THE PAST YEAR?NO POINTS0 INTERPRETATIONNEGATIVE RECREATIONAL DRUG USE DRUG USE?NO PATIENT DENIES ABUSE OR MISSUSED OF ANY MEDICATION NO MISUSE OF MEDICATIONS. PATIENT DENIES USE OF ANY ILLEGAL SUBSTANCE INCLUDING MARIJUANA OR COCAINE NO MARIJUANA OR COCAINE. STATES USED MARIJUANA TEENAGER ONLY. CAFFEINE CAFFEINE USE?YES HOW OFTEN AND HOW MUCH? 8 CUPS OF HALF-CAFF COFFEE PER DAY HIV / HEP-C SCREENING HIV TEST OFFERED TO PATIENT:YES DATE OFFERED:06/10/2017 TEST ACCEPTED:NO HEP-C TEST OFFERED TO PATIENT:YES DATE OFFERED:06/10/2017 REASON:PATIENT DECLINED TEST ACCEPTED:NO REASON:PATIENT DECLINED AMISH [id number] PENTECOSTAL LANGUAGE LANGUAGES SPOKEN:SCOTTISH EDUCATION LEVEL OF EDUCATION:CRITICAL CARE TECHNICIAN'S DEGREE IN [employer] MANAGEMENT LEARNING BARRIERS / SPECIAL NEEDS CHANGE FROM LAST VISIT?NO BARRIERS TO LEARNING?NO HEARING IMPAIRED?NO VISION IMPAIRED?YES COGNITIVELY IMPAIRED?NO :CORRECTIVE LENSES READINESS TO LEARN?YES LEARNING PREFERENCES?NO LEARNING CAPABILITIES PRESENT?YES EMOTIONAL BARRIERS?NO SPECIAL DEVICES?YES :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 DIET: REGULAR. EXERCISE: NO REGULAR EXERCISE. MARITAL STATUS: . OTHERS AT HOME: SON AND GRANDDAUGHTER. NEW PATIENT PAIN DIARY TODAY'S VISITNOTES 10/19/2019 PATIENT DESCRIBES PAIN :ACHING, BURNING, HAVE IT ALL THE TIME, STABBING, SHOOTING, OTHER NUMBING FROM 0-10, WHAT LEVEL IS YOUR PAIN TODAY?8 PAIN CLINIC PFS, CLERGY, PUBLIC HEALTH REFERRALS PFS REFERRAL NEEDED?NO CLERGY REFERRAL NEEDED?NO PUBLIC HEALTH REFERRAL NEEDED?NO WAS THE PROVIDER NOTIFIED OF ANY PERTINENT INFO?YES HAS THE PATIENT BEEN EDUCATED REGARDING HIS/HER PLAN OF CARE?YES HAS THE PATIENT BEEN EDUCATED REGARDING PAIN, THE RISK FOR PAIN, THE IMPORTANCE OF EFFECTIVE PAIN MANAGEMENT, AND THE PAIN ASSESSMENT PROCESS?YES ADVANCE DIRECTIVE ADVANCE DIRECTIVE DISCUSSED WITH PATIENT:YES PATIENT HAS NO ADVANCED DIRECTIVES AND DECLINES INFORMATION ON HCP AT THIS TIME. HOSPITALIZATION/MAJOR DIAGNOSTIC PROCEDURE SURGERIES CHILDBIRTH 1977 REVIEW OF SYSTEMS REVIEWED BY: PROVIDER: JORGE A SHAH MD . CONSTITUTIONAL: ANY CHANGE IN YOUR MEDICAL CONDITION? NO . CHILLS NO . FEVER NO . INFECTION: DO YOU HAVE NEW INFECTIONS? NO . DO YOU HAVE HISTORY OF MRSA? NO . MUSCULOSKELETAL: ANY NEW PATTERNS OF PAIN OR NUMBNESS? NO . GASTROENTEROLOGY: ANY NEW CHANGE IN BOWEL CONTROL? NO . GENITOURINARY: ANY NEW CHANGE IN BLADDER CONTROL? YES, PT STATES THAT SHE HAS HAD INCREASED INCONTINENCE.. STARTED ABOUT 3 YEARS AGO, CURRENTLY TAKING MEDICATION. DS . IS THERE A CHANCE YOU COULD BE ? NO . HEMATOLOGY/LYMPH: DO YOU TAKE ANY BLOOD THINNERS? (FOR EXAMPLE- COUMADIN, PLAVIX, AGGRENOX, PLATEL, PRADAXA, OR XARELTO) NO . WHEN WAS YOUR LAST DOSE? DATE: TIME: . NEUROLOGY: HAVE YOU FALLEN IN THE PAST 12 MONTHS? NO . ANY NEW EXTREMITY NUMBNESS OR WEAKNESS? NO . CARDIOLOGY: DO YOU HAVE A PACEMAKER OR DEFIBRILLATOR? NO . RESPIRATORY: HAVE YOU BEEN SICK IN THE PAST WEEK? NO . FEVER NO . FLU LIKE SYMPTOMS? NO . COUGH NO . INTEGUMENTARY: DO YOU HAVE ANY RASHES OR OPEN SORES? NO . ALLERGIC/IMMUNO: ARE YOU ALLERGIC TO IV DYE? NO . ANY NEW ALLERGIES? NO . PSYCHIATRIC: DO YOU HAVE THOUGHTS OF HURTING YOURSELF OR SOMEONE ELSE? NO . ARE YOU ABUSED, NEGLECTED, OR IN AN UNSAFE ENVIRONMENT? NO . ENDOCRINOLOGY: ARE YOU DIABETIC? YES, MANAGING WITH DIET . OTHER: DO YOU NEED ANY PRESCRIPTIONS? NO . IF YES, PLEASE LIST: ____ . ANY NEW PROBLEMS WITH YOUR MEDICATIONS? NO . WHEN DID YOU LAST EAT? 10/19 730AM . WHEN DID YOU LAST DRINK? 10/19 11AM . WHAT DID YOU LAST DRINK? KIRILLSI . NAME OF PERSON DRIVING YOU HOME? SUNDAY . DO YOU HAVE ANY OTHER QUESTIONS OR CONCERNS YES, PT AWARE THAT SHE IS NOT HAVING STEROIDS TODAY DUE TO COVID-19. . VITAL SIGNS WT 287 LBS, HT 66 IN, BMI 46.32 INDEX, BP 152/67 MM HG, HR 93 /MIN, RR 18 /MIN, TEMP 98.1 F, OXYGEN SAT % 94%, SAFE IN ENV? (Y/N) Y, NA INITIALS AW 1301, REVIEWED BY: DS. ASSESSMENTS MYALGIA, OTHER SITE - M79.18 (PRIMARY) LOW BACK PAIN - M54.5 OTHER CHRONIC PAIN - G89.29 PROCEDURES PN TRIGGER POINT INJECTION NO STEROIDS DATE OF PROCEDURE : PRE PROCEDURE DIAGNOSIS 1. MYALGIA 2. PAIN AT BILATERAL LOWER BACK AREA POST PROCEDURE DIAGNOSIS 1. MYALGIA 2. PAIN AT BILATERAL LOWER BACK AREA PROCEDURE TRIGGER POINT INJECTION AT BILATERAL LOWER BACK AREA SURGEON DR. JORGE A SHAH FURNACE CHECKER NONE ANESTHESIA LOCAL PRE PROCEDURE NOTE 63-YEAR-OLD PATIENT WITH HISTORY OF CHRONIC PAIN AT BILATERAL LOWER BACK. I EVALUATED THE PATIENT AND REVIEWED THE CHART. THERE IS EVIDENCE OF BANDS OF TISSUE WITH RESTRICTION OF MOVEMENT AND PRESENCE OF TRIGGER POINT AT THE BILATERAL LOWER BACK AREA. I WENT OVER THE RISKS, ALTERNATIVES, AND BENEFITS ASSOCIATED WITH THIS PROCEDURE. THE PATIENT WOULD LIKE TO PROCEED AND GAVE CONSENT TO PERFORM THE PROCEDURE. THE PATIENT DENIES UNEXPLAINABLE WEIGHT LOSS, FEVER, CHILLS, OR NEW CHANGES IN URINARY OR BOWEL CONTROL DESCRIPTION OF PROCEDURE THE PATIENT WAS BROUGHT TO THE PROCEDURE ROOM AND PLACED IN THE SITTING POSITION. THE AREA WAS CLEANED WITH ALCOHOL. THE PROCEDURE WAS DONE USING ASEPTIC STERILE TECHNIQUES. I CHECKED LATERALITY AND THE LEVEL WHERE THE PROCEDURE WAS GOING TO BE PERFORMED WITH THE PATIENT AND THE SUPPORTING STAFF AT THE MOMENT OF THE TIME OUT IN THE PROCEDURE ROOM. USING A 25-GAUGE NEEDLE, TRIGGER POINTS WERE INJECTED INTO THE BILATERAL LOWER BACK AREA WITH A TOTAL OF 40 ML OF BUPIVACAINE 0.25%. AGREED WITH THE PATIENT THE PROCEDURE WAS DONE WITHOUT STEROIDS. THERE WAS NO EVIDENCE OF BLOOD, PARESTHESIA OR CEREBROSPINAL FLUID DURING THE PROCEDURE. THE PATIENT WAS SENT TO THE RECOVERY ROOM. THE PATIENT WAS MOVING THE EXTREMITIES AND DOING WELL. THERE WAS NO COMPLICATION DURING THE PROCEDURE. POST PROCEDURE NOTE THE PATIENT WILL BE SEEN IN A FOLLOW UP IN THE NEXT FEW WEEKS. I AM LOOKING FOR LONG LASTING PAIN RELIEF FOR THE PATIENT WITH THIS INJECTION. INSTRUCTIONS WERE GIVEN, QUESTIONS WERE ANSWERED, AND THE PATIENT EXPRESSED UNDERSTANDING AND AGREED WITH THE PLAN. I, GURVINDER HOLLIS, DOCUMENTED THE ABOVE INFORMATION ACTING A SCRIBE FOR DR. SHAH. 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 IT IS NOT A COPY OF THE [employer] PROGRESS NOTE. NUNU
== END ==
LOC: M PAIN 12:45
PROVIDERS: ATTEND Anesthesiology
DX: M79.18 Myalgia, other site (principal); M54.5 Low back pain; G89.29 Other chronic pain; E11.9 Type 2 diabetes mellitus without complications; Z86.59 Personal history of other mental and behavioral disorders; G47.00 Insomnia, unspecified; I10 Essential (primary) hypertension; Z96.652 Presence of left artificial knee joint; F17.210 Nicotine dependence, cigarettes, uncomplicated; Z88.5 Allergy status to narcotic agent; E66.01 Morbid (severe) obesity due to excess calories; Z68.42 Body mass index [BMI] 45.0-49.9, adult; Z79.82 Long term (current) use of aspirin; Z79.51 Long term (current) use of inhaled steroids; Z79.899 Other long term (current) drug therapy

== ENCOUNTER → 2019-11-04 | Outpatient (CLI) | payer OTHER ==
[~2019-11-04] MED LIST changes: -BUPIVACAINE HCL 0.25% 10ML VIAL As Ordered ONE; -BUPIVACAINE HCL 0.25% 30ML VIAL As Ordered ONE
--- NOTE | 2019-11-10 02:59 | ECWPNPC ---
PATIENT NAME: KELLY BLEVINS : 1955 GENDER: FEMALE VISIT DATE: 11/04/2019 DISCHARGE DATE: 11/04/19 1112 VISIT LOCKED DATE TIME: PHYSICIAN: MIMI BHAKTA RESOURCE: MIMI BHAKTA REASON FOR APPOINTMENT 1. POST TPI-MIGUEL HISTORY OF PRESENT ILLNESS HISTORY OF PRESENT ILLNESS: HERE FOR POST PROCEDURE FOLLOW-UP. HAD TRIGGER POINT INJECTIONS ON OCTOBER 20 WITHOUT STEROIDS. REPORTING SOME IMPROVEMENT IN HER BACK PAIN THAT CONTINUES TODAY. RATING PAIN VAS 7/10. PAIN RADIATES INTO LEFT POSTERIOR LEG. REVIEWED MRI OF THE LS-SPINE. DISCUSSED LUMBAR EPIDURAL STEROID INJECTION TRIAL. GABAPENTIN 100 MG AT BEDTIME THAT WAS STARTED AT LAST VISIT IS CAUSING SIDE EFFECTS OF A.M. FATIGUE. WE WILL DISCONTINUE THAT MEDICATION TODAY. PAIN THE PATIENT DESCRIBES THE PAIN... FALL RISK SCREENING: SCREENING :NO FALLS REPORTED IN THE LAST YEAR CURRENT MEDICATIONS TAKING TYLENOL ARTHRITIS PAIN 650 MG TABLET EXTENDED RELEASE 2 TABLETS NEEDED ORALLY EVERY 8 HRS TAKING OXYBUTYNIN CHLORIDE 5 MG TABLET 1 TABLET ORALLY 3 TIMES A DAY TAKING VENLAFAXINE HCL 75 MG TABLET 1 TABLET WITH FOOD ORALLY TWICE A DAY TAKING TOPIRAMATE 50 MG TABLET 1 TABLET ORALLY TWICE A DAY TAKING MELOXICAM 15 MG TABLET 1 TABLET ORALLY ONCE A DAY TAKING TRAZODONE HCL 150 MG TABLET 1 TABLET AT BEDTIME NEEDED ORALLY ONCE A DAY TAKING LISINOPRIL 20 MG TABLET 1 TABLET ORALLY ONCE A DAY TAKING ASPIR-LOW 81 MG TABLET DELAYED RELEASE 1 TABLET ORALLY ONCE A DAY TAKING GLUCOSAMINE-MSM COMPLEX-COLLGN - CAPSULE 1000 MG ORALLY DAILY TAKING MAGNESIUM 400 MG CAPSULE 2 TABLETS ORALLY ONCE A DAY TAKING ROPINIROLE HCL 1 MG TABLET 1 TABLET 1 TO 3 HOURS BEFORE BEDTIME ORALLY ONCE A DAY TAKING ANORO ELLIPTA 62.5-25 MCG/INH AEROSOL POWDER BREATH ACTIVATED 1 PUFF INHALATION ONCE A DAY TAKING GABAPENTIN 100 MG CAPSULE 1 CAPSULE ORALLY BID NOT-TAKING TAB-A-MARGY - TABLET 1 TABLET ORALLY ONCE A DAY NOT-TAKING AMOXICILLIN 1 TAB ORAL NOT-TAKING IBUPROFEN 800 MG TABLET 1 TABLET WITH FOOD OR MILK NEEDED ORALLY THREE TIMES A DAY NOT-TAKING HYDROCODONE-ACETAMINOPHEN 5-325 MG TABLET 1 TABLET NEEDED ORALLY EVERY 6 HOURS NEEDED NOT-TAKING AMOXICILLIN 500 MG CAPSULE 1 CAPSULE ORALLY TWO TIMES A DAY NOT-TAKING FROVA 2.5 MG TABLET 1 TABLET NEEDED ONE TIME ORALLY ONCE A DAY NOT-TAKING CEPHALEXIN 500 MG CAPSULE 2 CAPSULES ORALLY EVERY 12 HRS MEDICATION LIST REVIEWED AND RECONCILED WITH THE PATIENT PAST MEDICAL HISTORY DIABETES TYPE II ANXIETY DEPRESSION FIBROMYALGIA INSOMNIA CHRONIC BACK PAIN CHRONIC NECK PAIN OBESITY TINNITUS 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 HYPERTENSION SINUS INFECTION ALLERGIES PERCOCET: SPACEY, CONFUSION - SIDE EFFECTS SURGICAL HISTORY EXCISION LEFT NOSE BCC 1986 APPENDECTOMY 1974 BILATERAL CARPAL TUNNEL SURGERY BILATERAL CATARACT SURGERY 1994 LAMINECTOMY C2-C5 1999 LEFT KNEE REPLACEMENT 2012 FAMILY HISTORY FATHER: 54 YRS, [place] MOTHER: ALIVE 84 YRS, DEMENTIA, DIAGNOSED WITH DIABETES, HYPERTENSION SIBLINGS: ALIVE, BROTHER-DEPRESSION, EARLY ONSET OF DEMENTIA SISTER-DEPRESSION PATERNAL GRAND FATHER: [place] PATERNAL GRAND MOTHER: GLAUCOMA, MUSCULAR DEGENERATION MATERNAL GRAND FATHER: [place] MATERNAL GRAND MOTHER: PANCREATIC CA,GLAUCOMA, HYPERTENSION, OTHER MALIGNANT NEOPLASM OF UNSPECIFIED SITE DENIES FAMILY HX OF MM. SOCIAL HISTORY GENERAL: TOBACCO USE ARE YOU A:CURRENT SMOKER ARE YOU INTERESTED IN QUITTING?NOT READY TO QUIT COUNSELED THE PATIENT ON SMOKING EFFECTS, EDUCATION [id number]/20/2020 HOW MANY CIGARETTES A DAY DO YOU SMOKE?- PATIENT COUNSELED ON THE DANGERS OF TOBACCO USE AND URGED TO QUIT:11/04/2019 HAVE YOU HAD A PNEUMOVAX VACCINE?YES 07/2017 VAPORNO E-CIGARETTENO LATEX QUESTIONNAIRE LATEX ALLERGY : HAVE YOU EVER DEVELOPED ANY TYPE OF REACTION AFTER HANDLING LATEX PRODUCTS SUCH RUBBER GLOVES, CONDOMS, DIAPHRAGMS, BALLOONS, SOCKS, OR UNDERWEAR?NO LATEX ALLERGY : HAVE YOU EVER DEVELOPED ANY TYPE OF REACTION DURING OR AFTER DENTAL APPOINTMENT, VAGINAL/RECTAL EXAMINATION, SURGICAL PROCEDURE, OR ANY OTHER EXPOSURE?NO LATEX RISK : HAVE YOU EVER HAD ANY DIFFICULTY BREATHING OR HIVES AFTER EATING OR HANDLING ANY FRUITS, OR VEGETABLES; SUCH KIWI, BANANAS, STONE FRUITS, OR CHESTNUTSNO LATEX RISK : DO YOU HAVE A PREVIOUS PERSONAL HISTORY OF MORE THAN NINE SURGERIES, SPINA BIFIDA, OR REPEATED CATHERIZATIONS? NO LATEX RISK : ARE YOU FREQUENTLY EXPOSED TO LATEX PRODUCTS IN YOUR OCCUPATION?NO DATE ASKED : 11/04/2019 ALCOHOL SCREENING DID YOU HAVE A DRINK CONTAINING ALCOHOL IN THE PAST YEAR?NO POINTS0 INTERPRETATIONNEGATIVE RECREATIONAL DRUG USE DRUG USE?NO PATIENT DENIES ABUSE OR MISSUSED OF ANY MEDICATION NO MISUSE OF MEDICATIONS. PATIENT DENIES USE OF ANY ILLEGAL SUBSTANCE INCLUDING MARIJUANA OR COCAINE NO MARIJUANA OR COCAINE. STATES USED MARIJUANA TEENAGER ONLY. CAFFEINE CAFFEINE USE?YES HOW OFTEN AND HOW MUCH? 8 CUPS OF HALF-CAFF COFFEE PER DAY HIV / HEP-C SCREENING HIV TEST OFFERED TO PATIENT:YES DATE OFFERED:06/10/2017 TEST ACCEPTED:NO HEP-C TEST OFFERED TO PATIENT:YES DATE OFFERED:06/10/2017 REASON:PATIENT DECLINED TEST ACCEPTED:NO REASON:PATIENT DECLINED MORAVIAN [id number] ORTHODOXY LANGUAGE LANGUAGES SPOKEN:GREENLANDIC EDUCATION LEVEL OF EDUCATION:GLUING MACHINE OFFBEARER'S DEGREE IN [employer] MANAGEMENT LEARNING BARRIERS / SPECIAL NEEDS CHANGE FROM LAST VISIT?NO BARRIERS TO LEARNING?NO HEARING IMPAIRED?NO VISION IMPAIRED?YES COGNITIVELY IMPAIRED?NO :CORRECTIVE LENSES READINESS TO LEARN?YES LEARNING PREFERENCES?NO LEARNING CAPABILITIES PRESENT?YES EMOTIONAL BARRIERS?NO SPECIAL DEVICES?YES :CANE, WALKER CONE WINDER NEEDED?NO DOMESTIC VIOLENCE DO YOU FEEL SAFE IN YOUR ENVIRONMENT?YES 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 DIET: REGULAR. EXERCISE: NO REGULAR EXERCISE. MARITAL STATUS: . OTHERS AT HOME: SON AND GRANDDAUGHTER. NEW PATIENT PAIN DIARY TODAY'S VISITNOTES 11/04/2019 PATIENT DESCRIBES PAIN :ACHING, BURNING, HAVE IT ALL THE TIME, STABBING, SHOOTING, OTHER NUMBING FROM 0-10, WHAT LEVEL IS YOUR PAIN TODAY?6 PRECIPITATING FACTORS STANDING ALLEVIATING FACTORS SITTING OR LAYING DOWN PAIN CLINIC PFS, CLERGY, PUBLIC HEALTH REFERRALS PFS REFERRAL NEEDED?NO CLERGY REFERRAL NEEDED?NO PUBLIC HEALTH REFERRAL NEEDED?NO WAS THE PROVIDER NOTIFIED OF ANY PERTINENT INFO?YES HAS THE PATIENT BEEN EDUCATED REGARDING HIS/HER PLAN OF CARE?YES HAS THE PATIENT BEEN EDUCATED REGARDING PAIN, THE RISK FOR PAIN, THE IMPORTANCE OF EFFECTIVE PAIN MANAGEMENT, AND THE PAIN ASSESSMENT PROCESS?YES ADVANCE DIRECTIVE ADVANCE DIRECTIVE DISCUSSED WITH PATIENT:YES PATIENT HAS NO ADVANCED DIRECTIVES AND DECLINES INFORMATION ON HCP AT THIS TIME. HOSPITALIZATION/MAJOR DIAGNOSTIC PROCEDURE SURGERIES CHILDBIRTH 1977 REVIEW OF SYSTEMS REVIEWED BY: PROVIDER: MIMI BYRNE . CONSTITUTIONAL: ANY CHANGE IN YOUR MEDICAL CONDITION? NO . CHILLS NO . FEVER NO . INFECTION: DO YOU HAVE NEW INFECTIONS? NO . DO YOU HAVE HISTORY OF MRSA? NO . MUSCULOSKELETAL: ANY NEW PATTERNS OF PAIN OR NUMBNESS? NO . GASTROENTEROLOGY: ANY NEW CHANGE IN BOWEL CONTROL? NO . GENITOURINARY: ANY NEW CHANGE IN BLADDER CONTROL? NO . IS THERE A CHANCE YOU COULD BE ? NO . HEMATOLOGY/LYMPH: DO YOU TAKE ANY BLOOD THINNERS? (FOR EXAMPLE- COUMADIN, PLAVIX, AGGRENOX, PLATEL, PRADAXA, OR XARELTO) NO . WHEN WAS YOUR LAST DOSE? DATE: TIME: . NEUROLOGY: HAVE YOU FALLEN IN THE PAST 12 MONTHS? NO . ANY NEW EXTREMITY NUMBNESS OR WEAKNESS? NO . CARDIOLOGY: DO YOU HAVE A PACEMAKER OR DEFIBRILLATOR? NO . RESPIRATORY: HAVE YOU BEEN SICK IN THE PAST WEEK? NO . FEVER NO . FLU LIKE SYMPTOMS? NO . COUGH NO . INTEGUMENTARY: DO YOU HAVE ANY RASHES OR OPEN SORES? NO . ALLERGIC/IMMUNO: ARE YOU ALLERGIC TO IV DYE? NO . ANY NEW ALLERGIES? NO . PSYCHIATRIC: DO YOU HAVE THOUGHTS OF HURTING YOURSELF OR SOMEONE ELSE? NO . ARE YOU ABUSED, NEGLECTED, OR IN AN UNSAFE ENVIRONMENT? NO . ENDOCRINOLOGY: ARE YOU DIABETIC? YES, MANAGES BS WITH DIET. . OTHER: DO YOU NEED ANY PRESCRIPTIONS? NO . IF YES, PLEASE LIST: ____ . ANY NEW PROBLEMS WITH YOUR MEDICATIONS? NO . WHEN DID YOU LAST EAT? ____ . WHEN DID YOU LAST DRINK? ____ . WHAT DID YOU LAST DRINK? ____ . NAME OF PERSON DRIVING YOU HOME? ____ . DO YOU HAVE ANY OTHER QUESTIONS OR CONCERNS PATIENT STATES TRIGGER POINT INJECTONS GOOD FOR ONE WEEK. . VITAL SIGNS WT 290 LBS, HT 66 IN, BMI 46.80 INDEX, BP 154/67 MM HG, HR 86 /MIN, RR 18 /MIN, TEMP 98.0 F, OXYGEN SAT % 92%, SAFE IN ENV? (Y/N) Y, NA INITIALS AW 1019, REVIEWED BY: DAVID. ASSESSMENTS PROTRUSION OF INTERVERTEBRAL DISC OF LUMBOSACRAL REGION - M51.27 (PRIMARY) LUMBAR RADICULOPATHY - M54.16 TREATMENT PROTRUSION OF INTERVERTEBRAL DISC OF LUMBOSACRAL REGION NOTES: L4-5 LESI-LEFT. PROCEDURE CODES FA211 ESTABILISHED PATIENT [facility] FACILITY CHARGE DISPOSITION & COMMUNICATION FOLLOW UP POST (REASON: L4-5 LESI-LEFT) ELECTRONICALLY SIGNED BY CHAVEZ CORDERO ON 11/09/2019 AT 02:01 PM EDT DISCLAIMER : THIS IS A VISIT SUMMARY EXTRACTED FROM THE [email or web address] CHART. IT IS NOT A COPY OF THE [email or web address] PROGRESS NOTE. MTDD
== END ==
LOC: M PAIN 10:30
PROVIDERS: ATTEND Nurse Practitioner Family
DX: M51.27 Other intervertebral disc displacement, lumbosacral region (principal); M54.16 Radiculopathy, lumbar region; E11.9 Type 2 diabetes mellitus without complications; Z86.59 Personal history of other mental and behavioral disorders; M79.7 Fibromyalgia; G47.00 Insomnia, unspecified; I10 Essential (primary) hypertension; Z96.652 Presence of left artificial knee joint; F17.210 Nicotine dependence, cigarettes, uncomplicated; Z88.5 Allergy status to narcotic agent; E66.01 Morbid (severe) obesity due to excess calories; Z68.42 Body mass index [BMI] 45.0-49.9, adult; Z79.82 Long term (current) use of aspirin; Z79.51 Long term (current) use of inhaled steroids; Z79.899 Other long term (current) drug therapy

== ENCOUNTER → 2019-11-12 | Outpatient (CLI) | payer OTHER | LOC: M SLEEP 20:00 | PROVIDERS: ATTEND Internal Medicine Pulmonary Disease | DX: G47.30 Sleep apnea, unspecified (principal) ==

== ENCOUNTER → 2019-11-19 | Outpatient (CLI) | payer OTHER | LOC: M LABSMTC 09:43 | PROVIDERS: ATTEND Anesthesiology | DX: Z11.59 Encounter for screening for other viral diseases (principal) | CPT/HCPCS: C9803; U0003 ==

== ENCOUNTER → 2019-11-22 | Outpatient (CLI) | payer OTHER ==
[~2019-11-22] MED LIST changes: +ISOVUE-M 300 61% 15ML VIAL As Ordered ONE; +LIDOCAINE 1% SDV 30ML VIAL As Ordered ONE; +dexameTHASONE 10MG/1ML VIAL PRES.FREE (J1100 PER 1MG) As Ordered ONE
--- NOTE | 2019-11-22 11:43 | REP ---
C-ARM VIEWS OF THE LUMBAR SPINE: Three C-arm views of the lumbar spine performed during epidural injection performed by Dr. Shelton. A needle is seen at the L4-5 level. 27 seconds fluoroscopy time utilized. Electronically Signed by Jh Watkins MD 11/23/2019 01:00 P
--- NOTE | 2019-11-24 00:29 | ECWPNPC ---
PATIENT NAME: KELLY BLEVINS : 1955 GENDER: FEMALE VISIT DATE: 11/22/2019 DISCHARGE DATE: 11/22/19 1112 VISIT LOCKED DATE TIME: PHYSICIAN: JORGE A SHAH MD RESOURCE: JORGE A SHAH MD REASON FOR APPOINTMENT 1. L4-5 LESI-LEFT PAT DONE HISTORY OF PRESENT ILLNESS GENERAL: -. FALL RISK SCREENING: SCREENING :NO FALLS REPORTED IN THE LAST YEAR PAIN SCREENING: PATIENT HAS A COMPLAINT OF ACUTE OR CHRONIC PAIN :YES LOCATION OF PAIN:LOW BACK INTENSITY OF PAIN (SCALE OF 1 TO 10):7 WHAT DOES YOUR PAIN FEEL LIKE:BURNING, CONTINOUS, INTERMITTENT, SHARP, STABBING, TENDER, THROBBING DURATION:MAINLY DURING THE DAY PAIN IS INCREASED BY:ACTIVITIES PAIN IS DECREASED BY:SITTING NURSING NOTE: -. PAIN CENTER INTAKE QUESTIONS: DO YOU HAVE A HISTORY OF MRSA? :NO DO YOU TAKE A BLOOD THINNERS? :NO DO YOU HAVE ANY BLEEDING DISORDERS? :NO ANY NEW NUMBNESS OR WEAKNESS IN YOUR LEGS OR ARMS? :NO ANY PACEMAKER,DEFIBRILLATOR, OR DORSAL COLUMN STIMULATOR? :NO DO YOU HAVE ANY RASHES OR OPEN SORES? :NO ARE YOU ALLERGIC TO IV DYE? :NO ARE YOU DIABETIC? :YES MANAGED WITH DIET ANY NEW PROBLEMS WITH YOUR MEDICATIONS? :NO HAVE YOU RECEIVED A VACCINE IN THE PAST 30 DAYS? :NO DO YOU PLAN TO RECEIVE A VACCINE IN THE NEXT 21 DAYS? :NO ANY HISTORY OF SEIZURES? :YES EPILEPSY A CHILD, NO SEIZURE ACTIVITY SINCE 13 YEAR OLD ANY HISTORY OF CARDIAC ISSUES OR EVENTS? :NO DO YOU HAVE SLEEP APNEA? :YES SUSPECTED SLEEP APNEA, NO CPAP YET, JUST RECENTLY TESTED ANY RECENT HEAD INJURY? :NO DO YOU HAVE ANY NEW INFECTIONS? :NO WHEN DID YOU LAST EAT? : 11/21/19 1900 WHEN DID YOU LAST DRINK? : 11/22/19 0600 WHAT DID YOU LAST DRINK? : WATER NAME OF PERSON DRIVING YOU HOME? : IVAN (SON) DO YOU HAVE ANY OTHER QUESTIONS OR CONCERNS? : NO CURRENT MEDICATIONS TAKING TYLENOL ARTHRITIS PAIN 650 MG TABLET EXTENDED RELEASE 2 TABLETS NEEDED ORALLY EVERY 8 HRS, NOTES: 11/21/19 1300 TAKING OXYBUTYNIN CHLORIDE 5 MG TABLET 1 TABLET ORALLY 3 TIMES A DAY, NOTES: 11/22/19 0600 TAKING VENLAFAXINE HCL 75 MG TABLET 1 TABLET WITH FOOD ORALLY TWICE A DAY, NOTES: 11/22/19 06 TAKING TOPIRAMATE 50 MG TABLET 1 TABLET ORALLY TWICE A DAY, NOTES: 11/22/19 06 TAKING MELOXICAM 15 MG TABLET 1 TABLET ORALLY ONCE A DAY, NOTES: 11/21/19 1430 TAKING TRAZODONE HCL 150 MG TABLET 1 TABLET AT BEDTIME NEEDED ORALLY ONCE A DAY, NOTES: 11/21/192029 TAKING LISINOPRIL 20 MG TABLET 1 TABLET ORALLY ONCE A DAY, NOTES: 11/22/19599 TAKING ASPIR-LOW 81 MG TABLET DELAYED RELEASE 1 TABLET ORALLY ONCE A DAY, NOTES: 11/22/19599 TAKING GLUCOSAMINE-MSM COMPLEX-COLLGN - CAPSULE 1000 MG ORALLY DAILY, NOTES: 11/22/19599 TAKING MAGNESIUM 400 MG CAPSULE 2 TABLETS ORALLY ONCE A DAY, NOTES: 11/22/19599 TAKING ROPINIROLE HCL 1 MG TABLET 1 TABLET 1 TO 3 HOURS BEFORE BEDTIME ORALLY ONCE A DAY, NOTES: 11/21/192029 TAKING ANORO ELLIPTA 62.5-25 MCG/INH AEROSOL POWDER BREATH ACTIVATED 1 PUFF INHALATION ONCE A DAY, NOTES: 11/21/19 1300 NOT-TAKING GABAPENTIN 100 MG CAPSULE 1 CAPSULE ORALLY BID NOT-TAKING TAB-A-MARGY - TABLET 1 TABLET ORALLY ONCE A DAY NOT-TAKING AMOXICILLIN 1 TAB ORAL NOT-TAKING IBUPROFEN 800 MG TABLET 1 TABLET WITH FOOD OR MILK NEEDED ORALLY THREE TIMES A DAY NOT-TAKING HYDROCODONE-ACETAMINOPHEN 5-325 MG TABLET 1 TABLET NEEDED ORALLY EVERY 6 HOURS NEEDED NOT-TAKING AMOXICILLIN 500 MG CAPSULE 1 CAPSULE ORALLY TWO TIMES A DAY NOT-TAKING FROVA 2.5 MG TABLET 1 TABLET NEEDED ONE TIME ORALLY ONCE A DAY NOT-TAKING CEPHALEXIN 500 MG CAPSULE 2 CAPSULES ORALLY EVERY 12 HRS MEDICATION LIST REVIEWED AND RECONCILED WITH THE PATIENT PAST MEDICAL HISTORY DIABETES TYPE II ANXIETY DEPRESSION FIBROMYALGIA INSOMNIA CHRONIC BACK PAIN CHRONIC NECK PAIN OBESITY TINNITUS 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 HYPERTENSION SINUS INFECTION SEIZURES AFTER HEAD INJURY - NONE SINCE AGE 13 ALLERGIES PERCOCET: SPACEY, CONFUSION - SIDE EFFECTS SURGICAL HISTORY EXCISION LEFT NOSE BCC 1986 APPENDECTOMY 1974 BILATERAL CARPAL TUNNEL SURGERY BILATERAL CATARACT SURGERY 1994 LAMINECTOMY C2-C5 1999 LEFT KNEE REPLACEMENT 2012 FAMILY HISTORY FATHER: 54 YRS, [place] MOTHER: ALIVE 84 YRS, DEMENTIA, DIAGNOSED WITH DIABETES, HYPERTENSION SIBLINGS: ALIVE, BROTHER-DEPRESSION, EARLY ONSET OF DEMENTIA SISTER-DEPRESSION PATERNAL GRAND FATHER: [place] PATERNAL GRAND MOTHER: GLAUCOMA, MUSCULAR DEGENERATION MATERNAL GRAND FATHER: [place] MATERNAL GRAND MOTHER: PANCREATIC CA,GLAUCOMA, HYPERTENSION, OTHER MALIGNANT NEOPLASM OF UNSPECIFIED SITE DENIES FAMILY HX OF MM. SOCIAL HISTORY GENERAL: TOBACCO USE ARE YOU A:CURRENT SMOKER ARE YOU INTERESTED IN QUITTING?NOT READY TO QUIT COUNSELED THE PATIENT ON SMOKING EFFECTS, EDUCATION [id number]/20/2020 HOW MANY CIGARETTES A DAY DO YOU SMOKE?21- PATIENT COUNSELED ON THE DANGERS OF TOBACCO USE AND URGED TO QUIT:11/19/2019 HAVE YOU HAD A PNEUMOVAX VACCINE?YES 07/2017 VAPORNO E-CIGARETTENO LATEX QUESTIONNAIRE LATEX ALLERGY : HAVE YOU EVER DEVELOPED ANY TYPE OF REACTION AFTER HANDLING LATEX PRODUCTS SUCH RUBBER GLOVES, CONDOMS, DIAPHRAGMS, BALLOONS, SOCKS, OR UNDERWEAR?NO LATEX ALLERGY : HAVE YOU EVER DEVELOPED ANY TYPE OF REACTION DURING OR AFTER DENTAL APPOINTMENT, VAGINAL/RECTAL EXAMINATION, SURGICAL PROCEDURE, OR ANY OTHER EXPOSURE?NO LATEX RISK : HAVE YOU EVER HAD ANY DIFFICULTY BREATHING OR HIVES AFTER EATING OR HANDLING ANY FRUITS, OR VEGETABLES; SUCH KIWI, BANANAS, STONE FRUITS, OR CHESTNUTSNO LATEX RISK : DO YOU HAVE A PREVIOUS PERSONAL HISTORY OF MORE THAN NINE SURGERIES, SPINA BIFIDA, OR REPEATED CATHERIZATIONS? NO LATEX RISK : ARE YOU FREQUENTLY EXPOSED TO LATEX PRODUCTS IN YOUR OCCUPATION?NO DATE ASKED : 11/19/2019 ALCOHOL SCREENING DID YOU HAVE A DRINK CONTAINING ALCOHOL IN THE PAST YEAR?NO POINTS0 INTERPRETATIONNEGATIVE RECREATIONAL DRUG USE DRUG USE?NO PATIENT DENIES ABUSE OR MISSUSED OF ANY MEDICATION NO MISUSE OF MEDICATIONS. PATIENT DENIES USE OF ANY ILLEGAL SUBSTANCE INCLUDING MARIJUANA OR COCAINE NO MARIJUANA OR COCAINE. STATES USED MARIJUANA TEENAGER ONLY. CAFFEINE CAFFEINE USE?YES HOW OFTEN AND HOW MUCH? 8 CUPS OF HALF-CAFF COFFEE PER DAY HIV / HEP-C SCREENING HIV TEST OFFERED TO PATIENT:YES DATE OFFERED:06/10/2017 TEST ACCEPTED:NO HEP-C TEST OFFERED TO PATIENT:YES DATE OFFERED:06/10/2017 REASON:PATIENT DECLINED TEST ACCEPTED:NO REASON:PATIENT DECLINED MORMON [id number] ZOROASTRIANISM LANGUAGE LANGUAGES SPOKEN:GREEK EDUCATION LEVEL OF EDUCATION:EXHAUST WORKER'S DEGREE IN BUSINESS MANAGEMENT LEARNING BARRIERS / SPECIAL NEEDS CHANGE FROM LAST VISIT?NO BARRIERS TO LEARNING?NO HEARING IMPAIRED?NO VISION IMPAIRED?YES COGNITIVELY IMPAIRED?NO :CORRECTIVE LENSES READINESS TO LEARN?YES LEARNING PREFERENCES?NO LEARNING CAPABILITIES PRESENT?YES EMOTIONAL BARRIERS?NO SPECIAL DEVICES?YES :CANE, WALKER STRATEGY INTERN NEEDED?NO DOMESTIC VIOLENCE DO YOU FEEL SAFE IN YOUR ENVIRONMENT?YES 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 DIET: REGULAR. EXERCISE: NO REGULAR EXERCISE. MARITAL STATUS: . OTHERS AT HOME: SON AND GRANDDAUGHTER. NEW PATIENT PAIN DIARY TODAY'S VISITNOTES PATIENT DESCRIBES PAIN :ACHING, BURNING, HAVE IT ALL THE TIME, STABBING, SHOOTING, OTHER NUMBING FROM 0-10, WHAT LEVEL IS YOUR PAIN TODAY?6 PRECIPITATING FACTORS STANDING ALLEVIATING FACTORS SITTING OR LAYING DOWN PAIN CLINIC PFS, CLERGY, PUBLIC HEALTH REFERRALS PFS REFERRAL NEEDED?NO CLERGY REFERRAL NEEDED?NO PUBLIC HEALTH REFERRAL NEEDED?NO WAS THE PROVIDER NOTIFIED OF ANY PERTINENT INFO?YES HAS THE PATIENT BEEN EDUCATED REGARDING HIS/HER PLAN OF CARE?YES HAS THE PATIENT BEEN EDUCATED REGARDING PAIN, THE RISK FOR PAIN, THE IMPORTANCE OF EFFECTIVE PAIN MANAGEMENT, AND THE PAIN ASSESSMENT PROCESS?YES ADVANCE DIRECTIVE ADVANCE DIRECTIVE DISCUSSED WITH PATIENT:YES PATIENT HAS NO ADVANCED DIRECTIVES AND DECLINES INFORMATION ON HCP AT THIS TIME. HOSPITALIZATION/MAJOR DIAGNOSTIC PROCEDURE SURGERIES CHILDBIRTH 1977 VITAL SIGNS WT 290.4 LBS, HT 66 IN, BMI 46.87 INDEX, BP 141/65 MM HG, HR 73 /MIN, RR 20 /MIN, TEMP 97.5 F, OXYGEN SAT % 96%, NA INITIALS TL 0927, REVIEWED BY: CIPRIANO. EXAMINATION GENERAL: THE PATIENT IS ALERT, ORIENTED TIMES THREE AND COOPERATIVE. HEART SHOWS REGULAR RHYTHM, NO MURMURS AND NO GALLOPS. LUNGS ARE CLEAR TO AUSCULTATION. ASSESSMENTS INTERVERTEBRAL DISC DISORDERS WITH RADICULOPATHY, LUMBAR REGION - M51.16 LUMBAR SPINAL STENOSIS - M48.061 PROCEDURES PRE PROCEDURE DIAGNOSIS LUMBAR DISC DISORDER WITH RADICULOPATHY, LUMBAR SPINAL STENOSIS POST PROCEDURE DIAGNOSIS LUMBAR DISC DISORDER WITH RADICULOPATHY, LUMBAR SPINAL STENOSIS PROCEDURE LUMBAR EPIDURAL STEROID INJECTION UNDER FLUOROSCOPIC GUIDANCE SURGEON DR. JORGE A SHAH ENGINEERING LECTURER NONE ANESTHESIA LOCAL PRE PROCEDURE NOTE THE PATIENT HAS A HISTORY OF CHRONIC LOW BACK PAIN. I EVALUATED THE PATIENT AND REVIEWED THE CHART. I WENT OVER THE RISKS, ALTERNATIVES, AND BENEFITS ASSOCIATED WITH THIS PROCEDURE. I DISCUSSED THAT THE USE OF STEROIDS MAY CONTRIBUTE TO IMMUNOSUPPRESSION OF THE PATIENT'S BODY AGAINST INFECTIONS SUCH THE WEBSTER VIRUS, COVID-19. THE PATIENT IS AWARE OF THE POTENTIAL COMPLICATIONS ASSOCIATED WITH AN INFECTION OF THIS VIRUS INCLUDING . THE PATIENT WOULD LIKE TO PROCEED AND GIVE CONSENT TO PERFORMED THE PROCEDURE. THE PATIENT DENIES UNEXPLAINABLE WEIGHT LOSS, FEVER, CHILLS, OR NEW CHANGES IN URINARY OR BOWEL CONTROL. THE PATIENT IS COVID-19 NEGATIVE DESCRIPTION OF PROCEDURE THE PATIENT WAS BROUGHT TO THE PROCEDURE ROOM AND PLACED IN THE PRONE POSITION. THE LUMBOSACRAL AREA WAS CLEANED WITH BETADINE SOLUTION AND DRAPED ASEPTICALLY. THE PROCEDURE WAS DONE UNDER STERILE CONDITIONS. I CHECKED LATERALITY AND THE LEVEL WHERE THE PROCEDURE WAS GOING TO BE PERFORMED WITH THE PATIENT AND THE SUPPORTING STAFF AT THE MOMENT OF THE TIME OUT IN THE PROCEDURE ROOM. UNDER FLUOROSCOPIC GUIDANCE, THE TARGET POINT WAS SELECTED AT THE INTERLAMINAR LEVEL OF L4-L5. LIDOCAINE WAS USED TO NUMB THE SKIN AND THE SUBCUTANEOUS TISSUE BELOW IT. EPIDURAL TUOHY NEEDLE, 17-GAUGE, WAS ADVANCED UNDER FLUOROSCOPIC GUIDANCE AND FOLLOWING PATIENT FEEDBACK UNTIL THE EPIDURAL SPACE WAS REACHED 7 CM DEEP INTO THE SKIN BY THE LOSS OF RESISTANCE TECHNIQUE. ISOVUE M DYE 30%, 0.25 ML, WAS INJECTED SHOWING ADEQUATE SPREAD OF THE DYE. THEN, A SOLUTION OF 3 ML OF NORMAL SALINE WITH DEXAMETHASONE 10 MG WAS INJECTED SLOWLY FOLLOWING PATIENT FEEDBACK. THERE WAS NO EVIDENCE OF BLOOD, PARESTHESIA OR CEREBROSPINAL FLUID DURING THE PROCEDURE. THE PATIENT WAS SENT TO THE RECOVERY ROOM. THE PATIENT WAS MOVING THE EXTREMITIES AND DOING WELL. THERE WAS NO COMPLICATION DURING THE PROCEDURE. FLUOROSCOPY TIME WAS 27 SECONDS POST PROCEDURE NOTE I WAS INJECTING IN THE L4-L5, WITH JUST A SMALL VOLUME, THE PATIENT WAS EXPERIENCING PAIN DOWN THE LEG. THE PATIENT IS A CANDIDATE FOR THE MILD PROCEDURE. ALSO, THE PATIENT HAS SOME MOLES ON HER BACK THAT I TOLD HER TO DISCUSS WITH HER PRIMARY CARE PHYSICIAN. THE PATIENT WILL BE SEEN IN A FOLLOW UP IN THE NEXT FEW WEEKS. I AM LOOKING FOR LONG LASTING RELIEF FOR THE PATIENT WITH THIS INTERVENTION. INSTRUCTIONS WERE GIVEN, QUESTIONS WERE ANSWERED, AND THE PATIENT EXPRESSED UNDERSTANDING AND AGREES WITH THE PLAN. THE PATIENT IS AWARE TO STAY HOME FOR THE NEXT WEEK, IF POSSIBLE, DUE TO COVID-19. I, GURVINDER HOLLIS, DOCUMENTED THE ABOVE INFORMATION ACTING A SCRIBE FOR DR. SHAH. I HAVE REVIEWED THE ABOVE DOCUMENT, WRITTEN BY GURVINDER HOLLIS, AIR EXPORT LOGISTICS MANAGER, AND I VERIFY THAT IT IS ACCURATE DIAGNOSTIC IMAGING [facility] FLUORO GUIDE SPINE INJECTION (PAIN)[id number] PROCEDURE CODES 13162 LUMBAR/SACRAL W/ IMAGING DISPOSITION & COMMUNICATION FOLLOW UP F/UP WITH SUPERVISOR TUBING (REASON: POST LESI L4-L5) ELECTRONICALLY SIGNED BY JORGE A SHAH MD, MD ON 11/23/2019 AT 10:00 AM EDT DISCLAIMER : THIS IS A VISIT SUMMARY EXTRACTED FROM THE [employer] CHART. IT IS NOT A COPY OF THE [employer] PROGRESS NOTE. BRIGIDAD
== END ==
LOC: M PAIN 09:45
PROVIDERS: ATTEND Anesthesiology
DX: M51.16 Intervertebral disc disorders with radiculopathy, lumbar region (principal); M48.061 Spinal stenosis, lumbar region without neurogenic claudication; E11.9 Type 2 diabetes mellitus without complications; Z86.59 Personal history of other mental and behavioral disorders; M79.7 Fibromyalgia; G47.00 Insomnia, unspecified; I10 Essential (primary) hypertension; Z96.652 Presence of left artificial knee joint; F17.210 Nicotine dependence, cigarettes, uncomplicated; Z88.5 Allergy status to narcotic agent; Z79.82 Long term (current) use of aspirin; Z79.51 Long term (current) use of inhaled steroids; Z79.899 Other long term (current) drug therapy
CPT/HCPCS: 62323; J1100; Q9967

== ENCOUNTER → 2020-01-13 | Outpatient (CLI) | payer OTHER ==
[~2020-01-13] MED LIST changes: +ANOR1AER INH; +ASPI81CH17 PO; +CETI-24 PO; +DITR5TAB PO; +GNP1000T11 PO; -ISOVUE-M 300 61% 15ML VIAL As Ordered ONE; -LIDOCAINE 1% SDV 30ML VIAL As Ordered ONE; +LISI-538 PO; +MAGN400C PO; +MELO15TA28 PO; +OMEP10CASR PO; +OXYB5TAB10 PO; +ROPI1TAB3 PO; +TRAZ1TAB14 PO; +VENL75TA2 PO; -dexameTHASONE 10MG/1ML VIAL PRES.FREE (J1100 PER 1MG) As Ordered ONE
== END ==
LOC: M LABSMTC 11:39
PROVIDERS: ATTEND Anesthesiology
DX: Z01.818 Encounter for other preprocedural examination (principal); Z11.59 Encounter for screening for other viral diseases

== ENCOUNTER → 2020-01-26 | Outpatient (POV) | payer OTHER | LOC: M PAIN 09:00 | PROVIDERS: ATTEND Nurse Practitioner Family | DX: M46.1 Sacroiliitis, not elsewhere classified (principal) ==

== ENCOUNTER → 2020-02-02 | Outpatient (REF) | payer OTHER, MEDICAID ==
[2020-03-04 11:58] LABS: BASO # 0.1 10^3/uL (0.0-0.2); BASO % 0.8 % (0.0-1.0); EOS # 0.4 10^3/uL (0.0-0.5); EOS % 3.9 % (0.0-3.0); HEMATOCRIT 49.7 % (36.0-47.0); HEMOGLOBIN 16.4 g/dl (12.0-15.5); LYMPH % 30.6 % (24.0-44.0); MEAN CORPUSCULAR HEMOGLOBIN 31.8 pg (27.0-33.0); MEAN CORPUSCULAR VOLUME 96.5 fl (80.0-96.0); MONO # 0.6 10^3/uL (0.0-0.8); MONO % 5.6 % (0.0-5.0); NEUTROPHILS # 5.8 10^3/uL (1.5-8.5); NEUTROPHILS % 58.8 % (36.0-66.0); PLATELET COUNT, AUTOMATED 330 10^3/uL (150-450); RED BLOOD COUNT 5.15 10^6/uL (4.00-5.40); WHITE BLOOD COUNT 9.9 10^3/uL (4.0-10.0)
[2020-03-18 11:21] LABS: ALT/SGPT 22 U/L (12-78); BILIRUBIN,TOTAL 0.3 MG/DL (0.2-1.0); BLOOD UREA NITROGEN 10 MG/DL (7-18); CALCIUM LEVEL 9.4 MG/DL (8.8-10.2); CARBON DIOXIDE LEVEL 30 MEQ/L (21-32); CHLORIDE LEVEL 105 MEQ/L (98-107); CREATININE FOR GFR 0.92 MG/DL (0.55-1.30); GLOMERULAR FILTRATION RATE > 60.0 (>45); GLUCOSE, FASTING 128 MG/DL (70-100); POTASSIUM SERUM 4.6 MEQ/L (3.5-5.1); SODIUM LEVEL 140 MEQ/L (136-145); TRIGLYCERIDES LEVEL 158 MG/DL (<150)
[2020-03-18 11:22] LABS: ALBUMIN 3.5 GM/DL (3.2-5.2); CHOLESTEROL LEVEL 148 MG/DL (<200); CHOLESTEROL RISK RATIO 3.217 (<5); HDL CHOLESTEROL 46 MG/DL (>40); HEMOGLOBIN A1c 6.3 %; LDL CHOLESTEROL 70 MG/DL (<100); NON-HDL-C 102 MG/DL; TOTAL PROTEIN 7.4 GM/DL (6.4-8.2)
== END ==
LOC: M LAB REF 09:12
PROVIDERS: ATTEND Nurse Practitioner Family
DX: E78.5 Hyperlipidemia, unspecified (principal); G25.81 Restless legs syndrome; F41.8 Other specified anxiety disorders; M54.2 Cervicalgia; E11.9 Type 2 diabetes mellitus without complications; Z13.9 Encounter for screening, unspecified; I10 Essential (primary) hypertension

== ENCOUNTER → 2020-03-01 | Outpatient (CLI) | payer OTHER | LOC: M LABSMTC 13:12 | PROVIDERS: ATTEND Anesthesiology | DX: Z11.59 Encounter for screening for other viral diseases (principal) | CPT/HCPCS: C9803; U0003 ==

== ENCOUNTER → 2020-03-08 | Outpatient (REF) | payer OTHER ==
[2020-03-08 20:11] LABS: FREE T4 1.34 NG/DL (0.76-1.46); THYROID STIMULATING HORMONE 0.794 uIU/ML (0.358-3.740)
== END ==
LOC: M LAB REF 17:53
PROVIDERS: ATTEND Physician Assistant
DX: R53.83 Other fatigue (principal)

== ENCOUNTER → 2020-03-19 | Outpatient (CLI) | payer OTHER | LOC: M LABSMTC 09:37 | PROVIDERS: ATTEND Anesthesiology | DX: Z01.812 Encounter for preprocedural laboratory examination (principal); Z20.828 Contact with and (suspected) exposure to other viral communicable diseases | CPT/HCPCS: C9803; U0003 ==

== ENCOUNTER → 2020-04-12 | Outpatient (CLI) | payer OTHER | LOC: M LABSMTC 09:58 | PROVIDERS: ATTEND Anesthesiology | DX: Z01.812 Encounter for preprocedural laboratory examination (principal); Z20.828 Contact with and (suspected) exposure to other viral communicable diseases | CPT/HCPCS: C9803; U0003 ==

== ENCOUNTER 2020-04-17 13:25 | Day surgery (SDC) | payer OTHER ==
[~2020-04-17] VITALS: Ht 167.6 cm; Wt 131.9 kg
[~2020-04-17 13:25] MED LIST changes: +NS 1,000 ML IV ONE
[2020-04-17] MEDS ORDERED: propofoL 200 MG/20 ML VIAL As Ordered ONE (15:32)
[2020-04-17] MEDS ORDERED: LIDOCAINE 2% 100MG/5ML SDV (FOR ANES.) As Ordered ONE (15:34)
[2020-04-17] MEDS ORDERED: fentaNYL 100 MCG/2 ML INJECTION (J3010) As Ordered ONE (15:36)
--- NOTE | 2020-04-17 16:00 | ROOR ---
Patient Name: Isis Trevino Procedure Date: 04/17/2020 3:42 PM Date of : 1955 Age: 64 Room: [facility] Gender: Female Note Status: Finalized Procedure: Upper GI endoscopy Indications: Dysphagia (resolved on PPI therapy), Heartburn Providers: Brando MONTES MD Referring MD: LEANA Norton Requesting Provider: Medicines: Monitored Anesthesia Care Complications: No immediate complications. Procedure: Pre-Anesthesia Assessment: - The heart rate, respiratory rate, oxygen saturations, blood pressure, adequacy of pulmonary ventilation, and response to care were monitored throughout the procedure. The Endoscope was introduced through the mouth, and advanced to the second part of duodenum. The upper GI endoscopy was accomplished without difficulty. The patient tolerated the procedure well. Findings: The Z-line was variable and was found 41 cm from the incisors. This was biopsied with a cold forceps for evaluation to rule out Maloney's Esophagus. No endoscopic abnormality was evident in the esophagus to explain the patient's complaint of dysphagia. The entire examined stomach was normal. The examined duodenum was normal. Impression: - Z-line variable, 41 cm from the incisors. Biopsied. - The esophagus is otherwise normal - Normal stomach. - Normal examined duodenum. Recommendation: - Continue present medications. - Telephone endoscopist for pathology results in 2 weeks. Brando Montes MD Brando MONTES MD 04/17/2020 4:00:09 PM Electronically signed by Brando MONTES MD Number of Addenda: 0 Note Initiated On: 04/17/2020 3:42 PM Estimated Blood Loss: Estimated blood loss: none.
[2020-04-17 16:15] VITALS: BP 120/56
== END 2020-04-17 16:35 | disposition home or self-care (01) ==
LOC: M OPP 13:25
PROVIDERS: ATTEND Internal Medicine Gastroenterology
DX: R12 Heartburn (principal); R13.10 Dysphagia, unspecified; K22.70 Barrett's esophagus without dysplasia; K22.8 Other specified diseases of esophagus; I10 Essential (primary) hypertension; E11.9 Type 2 diabetes mellitus without complications; M79.7 Fibromyalgia; F41.9 Anxiety disorder, unspecified; F32.9 Major depressive disorder, single episode, unspecified; G43.909 Migraine, unspecified, not intractable, without status migrainosus; G40.909 Epilepsy, unspecified, not intractable, without status epilepticus; J44.9 Chronic obstructive pulmonary disease, unspecified; F17.210 Nicotine dependence, cigarettes, uncomplicated; G47.30 Sleep apnea, unspecified; Z88.5 Allergy status to narcotic agent; Z79.51 Long term (current) use of inhaled steroids; Z79.82 Long term (current) use of aspirin; Z79.899 Other long term (current) drug therapy; Z82.49 Family history of ischemic heart disease and other diseases of the circulatory system; Z82.69 Family history of other diseases of the musculoskeletal system and connective tissue
CPT/HCPCS: 43239; 88305; J3010

== ENCOUNTER → 2020-05-05 | Outpatient (CLI) | payer OTHER ==
[~2020-05-05] MED LIST changes: -NS 1,000 ML IV ONE
--- NOTE | 2020-05-09 00:30 | ECWPNPC ---
PATIENT NAME: KELLY BLEVINS : 1955 GENDER: FEMALE VISIT DATE: 05/05/2020 DISCHARGE DATE: 05/05/20 0000 VISIT LOCKED DATE TIME: PHYSICIAN: JORGE A SHAH MD RESOURCE: JORGE A SHAH MD REASON FOR APPOINTMENT 1. DISCUSS MILD/VERTIFLEX HISTORY OF PRESENT ILLNESS DEPRESSION SCREENING: PHQ-2 (2015 EDITION) LITTLE INTEREST OR PLEASURE IN DOING THINGS?SEVERAL DAYS FEELING DOWN, DEPRESSED, OR HOPELESS?NOT AT ALL TOTAL SCORE1 PAIN CENTER INTAKE QUESTIONS: DO YOU HAVE A HISTORY OF MRSA? :NO DO YOU TAKE A BLOOD THINNERS? :NO DO YOU HAVE ANY BLEEDING DISORDERS? :NO ANY NEW NUMBNESS OR WEAKNESS IN YOUR LEGS OR ARMS? :YES NUMBNESS IN FACE AND NECK FOR PAST 3 MONTHS ANY PACEMAKER,DEFIBRILLATOR, OR DORSAL COLUMN STIMULATOR? :NO DO YOU HAVE ANY RASHES OR OPEN SORES? :NO ARE YOU ALLERGIC TO IV DYE? :NO ARE YOU DIABETIC? :YES ANY NEW PROBLEMS WITH YOUR MEDICATIONS? :NO HAVE YOU RECEIVED A VACCINE IN THE PAST 30 DAYS? :NO DO YOU PLAN TO RECEIVE A VACCINE IN THE NEXT 21 DAYS? :YES IF SO WHAT VACCINE AND WHEN? MAY GET SHINGLES VACCINE DO YOU NEED ANY PRESCRIPTION? :NO DO YOU TAKE ANY IMMUNOSUPPRESSIVE MEDICATIONS? :NO IS THERE A CHANCE YOU COULD BE ? :NO ARE YOU BREAST FEEDING? :NO GENERAL: 64-YEAR-OLD FEMALE PATIENT WITH A HISTORY OF CHRONIC LOW BACK PAIN. THE PATIENT DESCRIBES THE PAIN ACHING, OCCASIONALLY STABBING WITH A PAIN SCORE RANGING FROM 7-10/10 DEPENDING ON PHYSICAL ACTIVITY. THIS IS AFFECTING HER ABILITY TO DO ACTIVITIES SUCH CLEANING HER HOUSE AND MOVING AROUND. SHE IS HAVING PROBLEMS SLEEPING. HER MAIN PAIN IS AT HER LOWER BACK. THE PATIENT IS REPORTING HAVING SOME NUMBNESS OVER THE RIGHT NECK AREA WHICH IS NEW FOR HER. PATIENT DENIES UNEXPLAINABLE WEIGHT LOSS, FEVER OR CHILLS. FALL RISK SCREENING: SCREENING :NO FALLS REPORTED IN THE LAST YEAR PAIN SCREENING: PATIENT HAS A COMPLAINT OF ACUTE OR CHRONIC PAIN :YES LOCATION OF PAIN:NECK, LOW BACK INTENSITY OF PAIN (SCALE OF 1 TO 10):8 WHAT DOES YOUR PAIN FEEL LIKE:BURNING, SHARP NUMBNESS, TINGLING DURATION:CONTINOUS PAIN IS INCREASED BY:PROLONGED STANDING, ACTIVITIES PAIN IS DECREASED BY:SITTING NURSING NOTE: -. CURRENT MEDICATIONS TAKING TYLENOL ARTHRITIS PAIN 650 MG TABLET EXTENDED RELEASE 2 TABLETS NEEDED ORALLY EVERY 8 HRS, NOTES: 11/21/19 1300 TAKING OXYBUTYNIN CHLORIDE 5 MG TABLET 1 TABLET ORALLY 3 TIMES A DAY, NOTES: 11/22/19 06 TAKING VENLAFAXINE HCL 75 MG TABLET 1 TABLET WITH FOOD ORALLY TWICE A DAY, NOTES: 11/22/19 06 TAKING MELOXICAM 15 MG TABLET 1 TABLET ORALLY ONCE A DAY, NOTES: 11/21/19 1430 TAKING TRAZODONE HCL 150 MG TABLET 1 TABLET AT BEDTIME NEEDED ORALLY ONCE A DAY, NOTES: 11/21/192029 TAKING LISINOPRIL 20 MG TABLET 1 TABLET ORALLY ONCE A DAY, NOTES: 11/22/19599 TAKING ASPIR-LOW 81 MG TABLET DELAYED RELEASE 1 TABLET ORALLY ONCE A DAY, NOTES: 11/22/19599 TAKING GLUCOSAMINE-MSM COMPLEX-COLLGN - CAPSULE 1000 MG ORALLY DAILY, NOTES: 11/22/19599 TAKING MAGNESIUM 400 MG CAPSULE 2 TABLETS ORALLY ONCE A DAY, NOTES: 11/22/19599 TAKING ROPINIROLE HCL 1 MG TABLET 1 TABLET 1 TO 3 HOURS BEFORE BEDTIME ORALLY ONCE A DAY, NOTES: 11/21/192029 TAKING ANORO ELLIPTA 62.5-25 MCG/INH AEROSOL POWDER BREATH ACTIVATED 1 PUFF INHALATION ONCE A DAY, NOTES: 11/21/19 1300 TAKING OMEPRAZOLE 10 MG CAPSULE DELAYED RELEASE 1 CAPSULE 30 MINUTES BEFORE MORNING MEAL ORALLY ONCE A DAY, NOTES: UNCERTAIN OF DOSE NOT-TAKING MULTIVITAMIN ADULTS NOT-TAKING BACTRIM DS 800-160 MG TABLET 1 TABLET ORALLY TWICE A DAY NOT-TAKING GABAPENTIN 100 MG CAPSULE 1 CAPSULE ORALLY BID NOT-TAKING TAB-A-MARGY - TABLET 1 TABLET ORALLY ONCE A DAY NOT-TAKING AMOXICILLIN 1 TAB ORAL NOT-TAKING IBUPROFEN 800 MG TABLET 1 TABLET WITH FOOD OR MILK NEEDED ORALLY THREE TIMES A DAY NOT-TAKING HYDROCODONE-ACETAMINOPHEN 5-325 MG TABLET 1 TABLET NEEDED ORALLY EVERY 6 HOURS NEEDED NOT-TAKING AMOXICILLIN 500 MG CAPSULE 1 CAPSULE ORALLY TWO TIMES A DAY NOT-TAKING FROVA 2.5 MG TABLET 1 TABLET NEEDED ONE TIME ORALLY ONCE A DAY NOT-TAKING CEPHALEXIN 500 MG CAPSULE 2 CAPSULES ORALLY EVERY 12 HRS MEDICATION LIST REVIEWED AND RECONCILED WITH THE PATIENT PAST MEDICAL HISTORY DIABETES TYPE II ANXIETY DEPRESSION FIBROMYALGIA INSOMNIA CHRONIC BACK PAIN CHRONIC NECK PAIN OBESITY TINNITUS 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 HYPERTENSION SINUS INFECTION SEIZURES AFTER HEAD INJURY - NONE SINCE AGE 13 ALLERGIES PERCOCET: SPACEY, CONFUSION - SIDE EFFECTS SURGICAL HISTORY EXCISION LEFT NOSE BCC 1987 APPENDECTOMY 1974 BILATERAL CARPAL TUNNEL SURGERY BILATERAL CATARACT SURGERY 1994 LAMINECTOMY C2-C5 1999 LEFT KNEE REPLACEMENT 2012 UPPER GI ENDOSCOPY 03/2020 FAMILY HISTORY FATHER: 54 YRS, GA MOTHER: 84 YRS, DEMENTIA, DIAGNOSED WITH HYPERTENSION, DIABETES SIBLINGS: ALIVE, BROTHER-DEPRESSION, EARLY ONSET OF DEMENTIA SISTER-DEPRESSION OLDEST BROTHER - CHF SON(S): ALIVE PATERNAL GRAND FATHER: GA PATERNAL GRAND MOTHER: GLAUCOMA, MUSCULAR DEGENERATION MATERNAL GRAND FATHER: GA MATERNAL GRAND MOTHER: PANCREATIC CA,GLAUCOMA, HYPERTENSION, OTHER MALIGNANT NEOPLASM OF UNSPECIFIED SITE 2 BROTHER(S) , 2 SISTER(S) . 1 SON(S) . DENIES FAMILY HX OF MM. SOCIAL HISTORY GENERAL: TOBACCO USE ARE YOU A:CURRENT SMOKER HOW MANY CIGARETTES A DAY DO YOU SMOKE?21-30 ARE YOU INTERESTED IN QUITTING?NOT READY TO QUIT PATIENT COUNSELED ON THE DANGERS OF TOBACCO USE AND URGED TO QUIT:11/19/2019 COUNSELED THE PATIENT ON SMOKING EFFECTS, EDUCATION DTTERIYE15/20/2020 VAPORNO E-CIGARETTENO HAVE YOU HAD A PNEUMOVAX VACCINE?YES 07/2017 LATEX QUESTIONNAIRE LATEX ALLERGY : HAVE YOU EVER DEVELOPED ANY TYPE OF REACTION AFTER HANDLING LATEX PRODUCTS SUCH RUBBER GLOVES, CONDOMS, DIAPHRAGMS, BALLOONS, SOCKS, OR UNDERWEAR?NO LATEX ALLERGY : HAVE YOU EVER DEVELOPED ANY TYPE OF REACTION DURING OR AFTER DENTAL APPOINTMENT, VAGINAL/RECTAL EXAMINATION, SURGICAL PROCEDURE, OR ANY OTHER EXPOSURE?NO DATE ASKED : 11/19/2019 LATEX RISK : HAVE YOU EVER HAD ANY DIFFICULTY BREATHING OR HIVES AFTER EATING OR HANDLING ANY FRUITS, OR VEGETABLES; SUCH KIWI, BANANAS, STONE FRUITS, OR CHESTNUTSNO LATEX RISK : DO YOU HAVE A PREVIOUS PERSONAL HISTORY OF MORE THAN NINE SURGERIES, SPINA BIFIDA, OR REPEATED CATHERIZATIONS? NO LATEX RISK : ARE YOU FREQUENTLY EXPOSED TO LATEX PRODUCTS IN YOUR OCCUPATION?NO ALCOHOL SCREENING DID YOU HAVE A DRINK CONTAINING ALCOHOL IN THE PAST YEAR?NO POINTS0 INTERPRETATIONNEGATIVE RECREATIONAL DRUG USE DRUG USE?NO PATIENT DENIES ABUSE OR MISSUSED OF ANY MEDICATION NO MISUSE OF MEDICATIONS. PATIENT DENIES USE OF ANY ILLEGAL SUBSTANCE INCLUDING MARIJUANA OR COCAINE NO MARIJUANA OR COCAINE. STATES USED MARIJUANA TEENAGER ONLY. CAFFEINE CAFFEINE USE?YES HOW OFTEN AND HOW MUCH? 8 CUPS OF HALF-CAFF COFFEE PER DAY HIV / HEP-C SCREENING HIV TEST OFFERED TO PATIENT:YES DATE OFFERED:06/10/2017 TEST ACCEPTED:NO HEP-C TEST OFFERED TO PATIENT:YES DATE OFFERED:06/10/2017 REASON:PATIENT DECLINED TEST ACCEPTED:NO REASON:PATIENT DECLINED CHEONDOISM [id number] [employer]TH[employer]OX LANGUAGE LANGUAGES SPOKEN:EAST TIMORESE EDUCATION LEVEL OF EDUCATION:HAND SALTER'S DEGREE IN BUSINESS MANAGEMENT LEARNING BARRIERS / SPECIAL NEEDS CHANGE FROM LAST VISIT?NO BARRIERS TO LEARNING?NO HEARING IMPAIRED?NO VISION IMPAIRED?YES COGNITIVELY IMPAIRED?NO :CORRECTIVE LENSES READINESS TO LEARN?YES LEARNING PREFERENCES?NO LEARNING CAPABILITIES PRESENT?YES EMOTIONAL BARRIERS?NO SPECIAL DEVICES?YES :CANE, WALKER BLADE SHARPENER NEEDED?NO DOMESTIC VIOLENCE DO YOU FEEL SAFE IN YOUR ENVIRONMENT?YES 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 DIET: REGULAR. EXERCISE: NO REGULAR EXERCISE. MARITAL STATUS: . OTHERS AT HOME: SON AND GRANDDAUGHTER. TODAY'S VISITNOTES PATIENT DESCRIBES PAIN :ACHING, BURNING, HAVE IT ALL THE TIME, STABBING, SHOOTING, OTHER NUMBING FROM 0-10, WHAT LEVEL IS YOUR PAIN TODAY?6 PRECIPITATING FACTORS STANDING ALLEVIATING FACTORS SITTING OR LAYING DOWN PAIN CLINIC PFS, CLERGY, PUBLIC HEALTH REFERRALS PFS REFERRAL NEEDED?NO CLERGY REFERRAL NEEDED?NO PUBLIC HEALTH REFERRAL NEEDED?NO WAS THE PROVIDER NOTIFIED OF ANY PERTINENT INFO?YES HAS THE PATIENT BEEN EDUCATED REGARDING HIS/HER PLAN OF CARE?YES HAS THE PATIENT BEEN EDUCATED REGARDING PAIN, THE RISK FOR PAIN, THE IMPORTANCE OF EFFECTIVE PAIN MANAGEMENT, AND THE PAIN ASSESSMENT PROCESS?YES ADVANCE DIRECTIVE ADVANCE DIRECTIVE DISCUSSED WITH PATIENT:YES PATIENT HAS NO ADVANCED DIRECTIVES AND DECLINES INFORMATION ON HCP AT THIS TIME. HOSPITALIZATION/MAJOR DIAGNOSTIC PROCEDURE SURGERIES CHILDBIRTH 1978 REVIEW OF SYSTEMS CONSTITUTIONAL: ANY RECENT FEVER NO . CHILLS NO . WEIGHT CHANGE OF UNKNOWN REASONS NO NEW NUMBNESS OF THE RIGHT FACE . GASTROENTEROLOGY: NEW UNEXPLAINABLE CHANGES IN BOWEL CONTROL NO . CONSTIPATION NO . GENITOURINARY: ANY NEW CHANGE IN BLADDER CONTROL? MORE FREQUENCY . NEUROLOGY: NEW ONSET DIZZINESS OR NEUROLOGICAL CHANGES NOT MENTIONED NO . NEW NUMBNESS OR PAIN PATTERNS NOT MENTIONED AND PERTINENT TO TODAY'S VISIT NO . CARDIOLOGY: NEW CHEST PRESSURE NO . NEW CHEST PAIN NO . RESPIRATORY: UNEXPLAINABLE COUGH NO . NEW SHORTNESS OF BREATH NO . VITAL SIGNS WT 295.8 LBS, HT 66 IN, BMI 47.74 INDEX, BP 144/63 MM HG, HR 86 /MIN, RR 18 /MIN, TEMP 97.0 F, OXYGEN SAT % 94%, SAFE IN ENV? (Y/N) YES, NA INITIALS AW 1427REVIEWED 05/05/20 1455 John EDMONDS RN. EXAMINATION GENERAL EXAMINATION: THE PATIENT IS ALERT, ORIENTED TIMES THREE AND COOPERATIVE. HEART SHOWS REGULAR RHYTHM, NO MURMURS AND NO GALLOPS. LUNGS ARE CLEAR TO AUSCULTATION. MRI OF THE LUMBAR SPINE DATED 10/08/2019 SHOWS FACET ARTHROPTHY CHANGES AT MULTIPLE LEVELS WITH SOME LATERAL STENOSIS. ASSESSMENTS LUMBAR SPINAL STENOSIS - M48.061 (PRIMARY) NECK PAIN - M54.2 TREATMENT LUMBAR SPINAL STENOSIS NOTES: 05/05/20 1546 PRE PROCEDURE INSTRUCTIONS REVIEWED WITH PATIENT FOR LUMBAR DIAGNOSTIC FACET BLOCK # 1 L3/L4, L4/L5, L5/S1 AND HAND OUT ABOUT LUMBAR FACET BLOCK GIVEN TO PATIENT, PATIENT VERBALIZES UNDERSTANDING ABOUT PROCEDURE AND PRE PROCEDURE INSTRUTIONS. CLINICAL NOTES: I DISCUSSED ALTERNATIVES WITH MS. BLEVINS. AT THE MOMENT, I THINK WE SHOULD DO A DIAGNOSTIC FACET BLOCK. I WOULD LIKE TO REQUEST AUTHORIZATION FOR A DIAGNOSTIC FACET BLOCK BILATERAL L3-L4, L4-L5, L5-S1 NUMBER 1, BOOK AFTER APPROVED. THE PATIENT HAS SOME NUMBNESS IN HER RIGHT FACE. I WILL ORDER A CERVICAL MRI WITH AND WITHOUT CONTRAST FOR THIS. I WILL ALSO REFER THE PATIENT TO NEUROLOGY FOR A CONSULT. THE PATIENT REPORTS UNDERSTANDING AND AGREES WITH THE PLAN. I, GURVINDER HOLLIS, DOCUMENTED THE ABOVE INFORMATION ACTING A SCRIBE FOR DR. SHAH. I HAVE REVIEWED THE ABOVE DOCUMENT, WRITTEN BY GURVINDER HOLLIS, PLANNING TECHNICIAN, AND I VERIFY THAT IT IS ACCURATE. NECK PAIN LAB: CREATININE (ORDERED FOR 05/05/2020) LAB: BLOOD UREA NITROGEN (BUN) (ORDERED FOR 05/05/2020) [facility] MRI SPINE, CERVICAL WITH [id number] [facility] MRI SPINE, CERVICAL WITHOUT [id number] OTHERS REFERRAL TO:[facility] REASON:PATIENT NEEDS NEURLOGICAL CONSULT FOR NEW NUMBNESS IN FACE AND NECK PROCEDURE CODES FA211 ESTABILISHED PATIENT [facility] FACILITY CHARGE 40000 OFFICE/OUTPATIENT VISIT EST DISPOSITION & COMMUNICATION FOLLOW UP REQUEST AUTHORIZATION FOR A DIAGNOSTIC FACET BLOCK BILATERAL L3-L4, L4-L5, L5-S1 NUMBER 1 (REASON: ALSO REQUEST AUTH FOR CERVICAL MRI, FOLLOW WITH TOLL GATE KEEPER FOR THE RESULTS ) ELECTRONICALLY SIGNED BY JORGE A SHAH MD, MD ON 05/08/2020 AT 03:46 PM EST DISCLAIMER : THIS IS A VISIT SUMMARY EXTRACTED FROM THE [employer] CHART. IT IS NOT A COPY OF THE [employer] PROGRESS NOTE. NUNU
== END ==
LOC: M PAIN 14:00
PROVIDERS: ATTEND Anesthesiology
DX: M48.061 Spinal stenosis, lumbar region without neurogenic claudication (principal); M54.2 Cervicalgia; E11.9 Type 2 diabetes mellitus without complications; F41.9 Anxiety disorder, unspecified; F32.9 Major depressive disorder, single episode, unspecified; M79.7 Fibromyalgia; G47.00 Insomnia, unspecified; E66.9 Obesity, unspecified; R13.10 Dysphagia, unspecified; I10 Essential (primary) hypertension; F17.210 Nicotine dependence, cigarettes, uncomplicated; Z79.82 Long term (current) use of aspirin; Z79.899 Other long term (current) drug therapy; Z88.5 Allergy status to narcotic agent

== ENCOUNTER → 2020-07-17 | Outpatient (REF) | payer OTHER, MEDICAID ==
[~2020-07-17] MED LIST changes: +ASPI-281 PO; -ASPI81CH17 PO; -LISI-538; -LISI-538 PO; +LISI20TA33; +LISI20TA33 PO
[2020-07-17 16:41] LABS: BASO # 0.1 10^3/uL (0.0-0.2); BASO % 0.8 % (0.0-1.0); EOS # 0.5 10^3/uL (0.0-0.5); EOS % 4.6 % (0.0-3.0); HEMATOCRIT 50.8 % (36.0-47.0); HEMOGLOBIN 16.3 g/dl (12.0-15.5); LYMPH # 3.2 10^3/uL (1.5-5.0); LYMPH % 29.4 % (24.0-44.0); MEAN CORPUSCULAR HEMOGLOBIN 30.5 pg (27.0-33.0); MEAN CORPUSCULAR HGB CONC 32.1 g/dl (32.0-36.5); MONO # 0.7 10^3/uL (0.0-0.8); MONO % 6.2 % (0.0-5.0); NEUTROPHILS # 6.5 10^3/uL (1.5-8.5); NEUTROPHILS % 58.7 % (36.0-66.0); PLATELET COUNT, AUTOMATED 337 10^3/uL (150-450); RED BLOOD COUNT 5.35 10^6/uL (4.00-5.40)
[2020-07-17 17:12] LABS: ALBUMIN 3.5 GM/DL (3.2-5.2); ALT/SGPT 28 U/L (12-78); BILIRUBIN,TOTAL 0.2 MG/DL (0.2-1.0); BLOOD UREA NITROGEN 13 MG/DL (7-18); CALCIUM LEVEL 9.9 MG/DL (8.8-10.2); CARBON DIOXIDE LEVEL 31 MEQ/L (21-32); CHLORIDE LEVEL 98 MEQ/L (98-107); CHOLESTEROL LEVEL 191 MG/DL (<200); CHOLESTEROL RISK RATIO 4.441 (<5); CREATININE FOR GFR 0.82 MG/DL (0.55-1.30); FREE T4 1.29 NG/DL (0.76-1.46); GLOMERULAR FILTRATION RATE > 60.0 (>45); GLUCOSE, FASTING 105 MG/DL (70-100); HDL CHOLESTEROL 43 MG/DL (>40); LDL CHOLESTEROL 113 MG/DL (<100); NON-HDL-C 148 MG/DL; POTASSIUM SERUM 4.7 MEQ/L (3.5-5.1); SODIUM LEVEL 136 MEQ/L (136-145); THYROID STIMULATING HORMONE 0.867 uIU/ML (0.358-3.740); TOTAL PROTEIN 7.8 GM/DL (6.4-8.2); TRIGLYCERIDES LEVEL 173 MG/DL (<150)
[2020-07-17 18:38] LABS: HEMOGLOBIN A1c 6.2 %
== END ==
LOC: M LAB REF 16:09
PROVIDERS: ATTEND Nurse Practitioner Family
DX: E78.5 Hyperlipidemia, unspecified (principal); G25.81 Restless legs syndrome; F41.8 Other specified anxiety disorders; M54.2 Cervicalgia; E11.9 Type 2 diabetes mellitus without complications; I10 Essential (primary) hypertension; Z13.9 Encounter for screening, unspecified

== ENCOUNTER → 2020-07-31 | Outpatient (CLI) | payer OTHER ==
[2020-07-31 13:20] LABS: BASO # 0.1 10^3/uL (0.0-0.2); BASO % 0.5 % (0.0-1.0); EOS # 0.4 10^3/uL (0.0-0.5); EOS % 3.1 % (0.0-3.0); HEMOGLOBIN 15.9 g/dl (12.0-15.5); LYMPH # 3.1 10^3/uL (1.5-5.0); LYMPH % 26.9 % (24.0-44.0); MEAN CORPUSCULAR HEMOGLOBIN 30.2 pg (27.0-33.0); MEAN CORPUSCULAR HGB CONC 32.4 g/dl (32.0-36.5); MEAN CORPUSCULAR VOLUME 93.2 fl (80.0-96.0); MONO # 0.5 10^3/uL (0.0-0.8); MONO % 4.1 % (0.0-5.0); NEUTROPHILS # 7.4 10^3/uL (1.5-8.5); PLATELET COUNT, AUTOMATED 368 10^3/uL (150-450); RED BLOOD COUNT 5.26 10^6/uL (4.00-5.40); WHITE BLOOD COUNT 11.4 10^3/uL (4.0-10.0)
[2020-07-31 13:54] LABS: ALBUMIN 3.3 GM/DL (3.2-5.2); ALT/SGPT 22 U/L (12-78); BILIRUBIN,TOTAL 0.4 MG/DL (0.2-1.0); BLOOD UREA NITROGEN 11 MG/DL (7-18); CALCIUM LEVEL 9.3 MG/DL (8.8-10.2); CARBON DIOXIDE LEVEL 28 MEQ/L (21-32); CHLORIDE LEVEL 102 MEQ/L (98-107); CREATININE FOR GFR 0.84 MG/DL (0.55-1.30); GLOMERULAR FILTRATION RATE > 60.0 (>45); GLUCOSE, FASTING 129 MG/DL (70-100); POTASSIUM SERUM 4.2 MEQ/L (3.5-5.1); RHEUMATOID FACTOR QUANT < 10.0 IU/ML (<15.0); SODIUM LEVEL 138 MEQ/L (136-145); THYROID STIMULATING HORMONE 0.984 uIU/ML (0.358-3.740); TOTAL PROTEIN 7.6 GM/DL (6.4-8.2); VITAMIN B12 LEVEL 451 PG/ML (247-911)
[2020-07-31 13:55] LABS: FOLATE 5.6 NG/ML (>5.4)
[2020-07-31 14:18] LABS: ERYTHROCYTE SEDIMENTATION RATE 27 mm/hr (0-30)
[2020-07-31 16:38] LABS: HEMOGLOBIN A1c 6.2 %
[2020-08-01 11:58] LABS: ALPHA-1-GLOBULIN % 4.9 % (2.9-4.9); ALPHA-2-GLOBULINS % 13.3 % (7.1-11.8); BETA-1-GLOBULINS % 7.5 % (4.7-7.2)
[2020-08-01 11:59] LABS: ALPHA-1-GLOBULINS 0.37 GM/DL (0.17-0.41); ALPHA-2-GLOBULINS 1.01 GM/DL (0.42-0.99); BETA-1-GLOBULINS 0.57 GM/DL (0.28-0.60); BETA-2-GLOBULINS 0.45 GM/DL (0.19-0.55); BETA-2-GLOBULINS % 5.9 % (3.2-6.5); GAMMA GLOBULIN % 18.4 % (11.1-18.8)
== END ==
LOC: M LAB 12:00
PROVIDERS: ATTEND Psychiatry & Neurology Neurology
DX: R51.9 Headache, unspecified (principal)

== ENCOUNTER → 2020-08-18 | Outpatient (CLI) | payer OTHER ==
--- NOTE | 2020-08-18 15:52 | REPVR ---
PROCEDURE INFORMATION: Exam: MR Head Without Contrast Exam date and time: 08/18/2020 1:58 PM Age: 64 years old Clinical indication: Headache and other: Neck pain; Tension; Patient HX: Cervicalgia and migraine TECHNIQUE: Imaging protocol: MR of the head without contrast. COMPARISON: No relevant prior studies available. FINDINGS: Brain: There are occasional nonspecific foci of high signal abnormality in the callahan radiata and centrum semiovale. These are best seen on the flair images. These foci may represent areas of gliosis, demyelination, and/or chronic ischemic change. There is moderate cerebral atrophy. Cerebral ventricles: Normal. No ventriculomegaly. Bones/joints: Unremarkable. Paranasal sinuses: There is mild sinus disease. Mastoid air cells: Normal as visualized. No mastoid effusion. Orbital cavity: Unremarkable. Soft tissues: Unremarkable. IMPRESSION: 1. There are occasional nonspecific foci of high signal abnormality in the callahan radiata and centrum semiovale. These are best seen on the flair images. These foci may represent areas of gliosis, demyelination, and/or chronic ischemic change. 2. There is moderate cerebral atrophy. Electronically signed by: David Meng On 08/18/2020 15:52:59 PM
== END ==
LOC: M PLARAD 12:31
PROVIDERS: ATTEND Psychiatry & Neurology Neurology
DX: M54.2 Cervicalgia (principal); G43.809 Other migraine, not intractable, without status migrainosus; G31.9 Degenerative disease of nervous system, unspecified

== ENCOUNTER → 2020-08-25 | Outpatient (CLI) | payer OTHER ==
--- NOTE | 2020-08-25 14:06 | REPVR ---
PROCEDURE INFORMATION: Exam: MR Angiogram Head Without Contrast, Arteries Exam date and time: 08/25/2020 1:49 PM Age: 64 years old Clinical indication: Dizziness and giddiness; Additional info: R42 dizziness giddiness TECHNIQUE: Imaging protocol: MR angiogram head without contrast. Exam focused on the arteries. 3D rendering (Not supervised by radiologist): MIP and/or 3D reconstructed images were created by the technologist. COMPARISON: MRI-Brain without Contrast 08/18/2020 1:05 PM FINDINGS: ANTERIOR CIRCULATION: Right internal carotid artery: Intracranial segment is patent with no significant stenosis. No aneurysm. Right middle cerebral artery: No occlusion or significant stenosis. No aneurysm. Right anterior cerebral artery: No occlusion or significant stenosis. No aneurysm. Left internal carotid artery: Intracranial segment is patent with no significant stenosis. No aneurysm. Left middle cerebral artery: No occlusion or significant stenosis. No aneurysm. Left anterior cerebral artery: No occlusion or significant stenosis. No aneurysm. POSTERIOR CIRCULATION: Right vertebral artery: No occlusion or significant stenosis. No aneurysm. Left vertebral artery: No occlusion or significant stenosis. No aneurysm. Basilar artery: No occlusion or significant stenosis. No aneurysm. Right posterior cerebral artery: No occlusion or significant stenosis. No aneurysm. Left posterior cerebral artery: No occlusion or significant stenosis. No aneurysm. IMPRESSION: No stenosis.No occlusion. No aneurysm. Electronically signed by: Oskar Miranda On 08/25/2020 14:07:26 PM
--- NOTE | 2020-08-25 14:07 | REPVR ---
PROCEDURE INFORMATION: Exam: MR Angiography Neck Without Contrast Exam date and time: 08/25/2020 1:49 PM Age: 64 years old Clinical indication: Dizziness and giddiness; Additional info: R42 dizziness giddiness TECHNIQUE: Imaging protocol: Magnetic resonance angiography of the neck without contrast. 3D rendering (Not supervised by radiologist): MIP and/or 3D reconstructed images were created by the technologist. COMPARISON: No relevant prior studies available. FINDINGS: Right common carotid artery: No stenosis. No dissection or occlusion. Right internal carotid artery: No stenosis of the extracranial segment. No dissection or occlusion. Right external carotid artery: No stenosis. No dissection or occlusion of the origin. Right vertebral artery: No stenosis. No dissection or occlusion. Left common carotid artery: No stenosis. No dissection or occlusion. Left internal carotid artery: No stenosis of the extracranial segment. No dissection or occlusion. Left external carotid artery: No stenosis. No dissection or occlusion of the origin. Left vertebral artery: No stenosis. No dissection or occlusion. IMPRESSION: No stenosis or occlusion. REFERENCES: NASCET CRITERIA. The degree of internal carotid artery stenosis is based on NASCET criteria. Normal is no stenosis. Mild is less than 50% stenosis. Moderate is 50-69% stenosis. Severe is 70% to 99% stenosis. Total occlusion is no detectable patent lumen. Electronically signed by: Oskar Miranda On 08/25/2020 14:07:44 PM
== END ==
LOC: M PLARAD 12:30
PROVIDERS: ATTEND Psychiatry & Neurology Neurology
DX: R42 Dizziness and giddiness (principal)

== ENCOUNTER → 2020-08-28 | Outpatient (CLI) | payer OTHER ==
--- NOTE | 2020-08-28 11:36 | REP ---
INDICATION: HYPERLIPIDEMIA COMPARISON: None. TECHNIQUE: Real-time ultrasound evaluation and duplex Doppler interrogation of the extracranial carotid vasculature is performed. FINDINGS: Diffuse mild plaquing is noted bilaterally. Elevation of the peak systolic velocities in the common carotid arteries bilaterally could be due to generalized high cardiac output or a more proximal stenosis bilaterally. There is increased peak systolic velocity in the distal left internal carotid artery which may indicate stenosis at that location 50-69%. There is normal direction of flow in both vertebral arteries. RIGHT LEFT Peak systolic velocity ICA 101.8 cm/s 163.6 cm/s End diastolic velocity ICA 20.2 cm/s 37.8 cm/s Peak systolic velocity CCA 185.1 cm/s 214.9cm/s Peak systolic velocity ECA 162.1 cm/s 102.3 cm/s ICA/CCA ratio 0.55 0.76 IMPRESSION: Mild diffuse plaquing bilaterally. Elevated peak systolic velocity in both common carotid arteries could be due to high cardiac output and increased flow, a more proximal stenosis cannot be excluded. There is increased peak systolic velocity in the distal left internal carotid artery which may indicate stenosis at that location 50-69%. <Electronically signed by Jh Watkins > 08/28/20 0683
== END ==
LOC: M RAD 10:37
PROVIDERS: ATTEND Pediatrics
DX: E78.49 Other hyperlipidemia (principal)

== ENCOUNTER → 2020-08-29 | Outpatient (CLI) | payer OTHER ==
--- NOTE | 2020-08-29 14:29 | REP ---
INDICATION: ULCER OF FOOT COMPARISON: None. TECHNIQUE: Real time watkins scale and Duplex Doppler evaluation of the bilateral lower extremity arterial vasculature using linear high frequency transducer. FINDINGS: Watkins scale and duplex doppler images demonstrate mild to moderate scattered plaquing bilaterally. Diffuse biphasic and triphasic waveforms are seen throughout the right lower extremity arterial system with monophasic waveform in the distal anterior tibial artery. Scattered biphasic waveforms are seen in the left lower extremity arterial system with monophasic waveform in the profunda and throughout the anterior tibial artery, as well as in the distal posterior tibial artery. There is no compelling duplex Doppler sonographic evidence of hemodynamically significant stenosis bilaterally. There is no arterial occlusion. Peak systolic velocities (cm/sec) Common femoral artery: Right 161; Left 188 Profunda femoris: Right 170; Left 90 SFA (proximal): Right 146; Left 129 SFA (mid): Right 127; Left 154 SFA (distal): Right 101; Left 114 Popliteal artery: Right 50; Left 93 ALLYN (prox.): Right 92; Left 68 Tibioperoneal trunk: Right 51; Left 83 ELECTROSTATIC POWDER COATING TECHNICIAN (prox.): Right 101; Left 60 ELECTROSTATIC POWDER COATING TECHNICIAN (distal): Right 112; Left 111 ALLYN (distal): Right 59; Left 75 IMPRESSION: Mild to moderate scattered plaquing. No hemodynamically significant stenosis bilaterally. No arterial occlusion. <Electronically signed by Jh Watkins > 08/29/20 [id number]
== END ==
LOC: M RAD 12:39
PROVIDERS: ATTEND Pediatrics
DX: L97.518 Non-pressure chronic ulcer of other part of right foot with other specified severity (principal)

== ENCOUNTER → 2020-10-30 | Outpatient (REF) | payer OTHER ==
[2020-10-30 12:48] LABS: ALBUMIN 3.2 GM/DL (3.2-5.2); ALT/SGPT 30 U/L (12-78); BILIRUBIN,TOTAL 0.3 MG/DL (0.2-1.0); BLOOD UREA NITROGEN 12 MG/DL (7-18); CALCIUM LEVEL 9.6 MG/DL (8.8-10.2); CARBON DIOXIDE LEVEL 31 MEQ/L (21-32); CHLORIDE LEVEL 102 MEQ/L (98-107); CHOLESTEROL LEVEL 147 MG/DL (<200); CHOLESTEROL RISK RATIO 2.672 (<5); CREATININE FOR GFR 0.68 MG/DL (0.55-1.30); GLOMERULAR FILTRATION RATE > 60.0 (>45); GLUCOSE, FASTING 103 MG/DL (70-100); HDL CHOLESTEROL 55 MG/DL (>40); LDL CHOLESTEROL 64 MG/DL (<100); NON-HDL-C 92 MG/DL; SODIUM LEVEL 137 MEQ/L (136-145); TOTAL PROTEIN 7.2 GM/DL (6.4-8.2); TRIGLYCERIDES LEVEL 142 MG/DL (<150)
== END ==
LOC: M LAB REF 11:36
PROVIDERS: ATTEND Pediatrics
DX: E78.5 Hyperlipidemia, unspecified (principal)

== ENCOUNTER → 2020-11-22 | Outpatient (CLI) | payer OTHER ==
--- NOTE | 2020-11-24 00:55 | ECWPNPC ---
PATIENT NAME: KELLY BLEVINS : 1955 GENDER: FEMALE VISIT DATE: 11/22/2020 DISCHARGE DATE: 11/22/20 1134 VISIT LOCKED DATE TIME: PHYSICIAN: MIMI BHAKTA RESOURCE: MIMI BHAKTA REASON FOR APPOINTMENT 1. LOW BACK HISTORY OF PRESENT ILLNESS DEPRESSION SCREENING: PHQ-9 LITTLE INTEREST OR PLEASURE IN DOING THINGSMORE THAN HALF THE DAYS FEELING DOWN, DEPRESSED, OR HOPELESSSEVERAL DAYS TROUBLE FALLING OR STAYING ASLEEP, OR SLEEPING TOO MUCHNEARLY EVERY DAY FEELING TIRED OR HAVING LITTLE ENERGYNEARLY EVERY DAY POOR APPETITE OR OVEREATING NEARLY EVERY DAY FEELING BAD ABOUT YOURSELF-OR THAT YOU ARE A FAILURE OR HAVE LET YOURSELF OR YOUR FAMILY DOWN SEVERAL DAYS TROUBLE CONCENTRATING ON THINGS, SUCH READING THE NEWSPAPER OR WATCHING TELEVISION NOT AT ALL MOVING OR SPEAKING SO SLOWLY THAT OTHER PEOPLE COULD HAVE NOTICED. OR THE OPPOSITE- BEING SO FIDGETY OR RESTLESS THAT YOU HAVE BEEN MOVING AROUND A LOT MORE THAN USUALNEARLY EVERY DAY THOUGHTS THAT YOU WOULD BE BETTER OFF , OR OF HURTING YOURSELF IN SOME WAY?NOT AT ALL TOTAL SCORE:16 INTERPRETATIONMODERATELY SEVERE DEPRESSION PHQ-2 (2015 EDITION) LITTLE INTEREST OR PLEASURE IN DOING THINGS?MORE THAN HALF THE DAYS FEELING DOWN, DEPRESSED, OR HOPELESS?SEVERAL DAYS TOTAL SCORE3 GENERAL: HERE FOR FOLLOW-UP OF CHRONIC LOW BACK PAIN. LAST VISIT WAS IN APRIL 2020. DR. SHAH HAD REFERRED HER TO NEUROLOGY FOR FACIAL NUMBNESS AND ORDERED CERVICAL MRI. 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 -. FALL RISK SCREENING: SCREENING : NO FALLS REPORTED IN THE LAST YEAR. PAIN SCREENING: PATIENT HAS A COMPLAINT OF ACUTE OR CHRONIC PAIN :YES LOCATION OF PAIN:LOW BACK INTENSITY OF PAIN (SCALE OF 1 TO 10):8 WHAT DOES YOUR PAIN FEEL LIKE:ACHING, BURNING, CONTINOUS, INTERMITTENT, TENDER, THROBBING, SORE DURATION:CONTINOUS, CONSTANT, STEADY, ALL DAY, INTERMITTENT PAIN IS INCREASED BY:ACTIVITIES, PROLONGED STANDING PAIN IS DECREASED BY:SITTING, OTHERS HEAT NURSING NOTE: -. PAIN CENTER INTAKE QUESTIONS: DO YOU HAVE A HISTORY OF MRSA? :NO DO YOU TAKE A BLOOD THINNERS? :NO ASPIR-LOW 81 MG DO YOU HAVE ANY BLEEDING DISORDERS? :NO ANY NEW NUMBNESS OR WEAKNESS IN YOUR LEGS OR ARMS? :NO RIGHT SIDE HAS NUMBNESS ANY PACEMAKER,DEFIBRILLATOR, OR DORSAL COLUMN STIMULATOR? :NO DO YOU HAVE ANY RASHES OR OPEN SORES? :YES OPEN SORE ON RIGHT FOOT BIG TOE ARE YOU ALLERGIC TO IV DYE? :NO ARE YOU DIABETIC? :NO BORDER LINE ANY NEW PROBLEMS WITH YOUR MEDICATIONS? :NO HAVE YOU RECEIVED A VACCINE IN THE PAST 30 DAYS? :NO DO YOU PLAN TO RECEIVE A VACCINE IN THE NEXT 21 DAYS? :NO DO YOU NEED ANY PRESCRIPTION? :NO DO YOU TAKE ANY IMMUNOSUPPRESSIVE MEDICATIONS? :NO DO YOU HAVE ANY KIDNEY OR LIVER DISEASE? :NO IS THERE A CHANCE YOU COULD BE ? :NO ARE YOU BREAST FEEDING? :NO CURRENT MEDICATIONS TAKING TYLENOL ARTHRITIS PAIN 650 MG TABLET EXTENDED RELEASE 2 TABLETS NEEDED ORALLY EVERY 8 HRS TAKING VENLAFAXINE HCL 75 MG TABLET 1 TABLET WITH FOOD ORALLY TWICE A DAY TAKING MELOXICAM 15 MG TABLET 1 TABLET ORALLY ONCE A DAY TAKING TRAZODONE HCL 150 MG TABLET 1 TABLET AT BEDTIME NEEDED ORALLY ONCE A DAY TAKING LISINOPRIL 20 MG TABLET 1 TABLET ORALLY ONCE A DAY TAKING ASPIR-LOW 81 MG TABLET DELAYED RELEASE 1 TABLET ORALLY ONCE A DAY TAKING GLUCOSAMINE-MSM COMPLEX-COLLGN - CAPSULE 1000 MG ORALLY DAILY TAKING MAGNESIUM 400 MG CAPSULE 2 TABLETS ORALLY ONCE A DAY TAKING ROPINIROLE HCL 1 MG TABLET 1 TABLET 1 TO 3 HOURS BEFORE BEDTIME ORALLY TWICE A DAY TAKING OMEPRAZOLE 10 MG CAPSULE DELAYED RELEASE 1 CAPSULE 30 MINUTES BEFORE MORNING MEAL ORALLY ONCE A DAY, NOTES: UNCERTAIN OF DOSE TAKING OXYBUTYNIN CHLORIDE ER 15 MG TABLET EXTENDED RELEASE 24 HOUR 1 TABLET ORALLY ONCE A DAY TAKING VITAMIN D3 25 MCG (1000 UT) CAPSULE 1 CAPSULE ORALLY ONCE A DAY TAKING ALBUTEROL SULFATE (2.5 MG/3ML) 0.083% NEBULIZATION SOLUTION 3 ML NEEDED INHALATION EVERY 6 HRS TAKING GLUCOSAMINE SULFATE 1000 MG TABLET 2 TABLET WITH A MEAL ORALLY ONCE A DAY NOT-TAKING ANORO ELLIPTA 62.5-25 MCG/INH AEROSOL POWDER BREATH ACTIVATED 1 PUFF INHALATION ONCE A DAY NOT-TAKING MULTIVITAMIN ADULTS NOT-TAKING BACTRIM DS 800-160 MG TABLET 1 TABLET ORALLY TWICE A DAY NOT-TAKING GABAPENTIN 100 MG CAPSULE 1 CAPSULE ORALLY BID NOT-TAKING TAB-A-MARGY - TABLET 1 TABLET ORALLY ONCE A DAY NOT-TAKING AMOXICILLIN 1 TAB ORAL NOT-TAKING IBUPROFEN 800 MG TABLET 1 TABLET WITH FOOD OR MILK NEEDED ORALLY THREE TIMES A DAY NOT-TAKING HYDROCODONE-ACETAMINOPHEN 5-325 MG TABLET 1 TABLET NEEDED ORALLY EVERY 6 HOURS NEEDED NOT-TAKING AMOXICILLIN 500 MG CAPSULE 1 CAPSULE ORALLY TWO TIMES A DAY NOT-TAKING FROVA 2.5 MG TABLET 1 TABLET NEEDED ONE TIME ORALLY ONCE A DAY NOT-TAKING CEPHALEXIN 500 MG CAPSULE 2 CAPSULES ORALLY EVERY 12 HRS MEDICATION LIST REVIEWED AND RECONCILED WITH THE PATIENT PAST MEDICAL HISTORY DIABETES TYPE II ANXIETY DEPRESSION FIBROMYALGIA INSOMNIA CHRONIC BACK PAIN CHRONIC NECK PAIN OBESITY TINNITUS 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 HYPERTENSION SINUS INFECTION SEIZURES AFTER HEAD INJURY - NONE SINCE AGE 13 URINARY INCONTINENCE SJOGER SYNDROME ALLERGIES PERCOCET: SPACEY, CONFUSION - SIDE EFFECTS SURGICAL HISTORY EXCISION LEFT NOSE BCC 1987 APPENDECTOMY 1974 BILATERAL CARPAL TUNNEL SURGERY 1980S BILATERAL CATARACT SURGERY 1994 LAMINECTOMY C2-C5 1999 LEFT KNEE REPLACEMENT 2012 UPPER GI ENDOSCOPY 03/2020 SOCIAL HISTORY GENERAL: TOBACCO USE ARE YOU A:CURRENT SMOKER ARE YOU INTERESTED IN QUITTING?NOT READY TO QUIT COUNSELED THE PATIENT ON SMOKING EFFECTS, EDUCATION [id number]/02/2021 HOW MANY CIGARETTES A DAY DO YOU SMOKE?21-30 HOW SOON AFTER YOU WAKE UP DO YOU SMOKE YOUR FIRST CIGARETTE?WITHIN 5 MIN HOW OFTEN DO YOU SMOKE CIGARETTES?EVERY DAY PATIENT COUNSELED ON THE DANGERS OF TOBACCO USE AND URGED TO QUIT:11/22/2020 HAVE YOU HAD A PNEUMOVAX VACCINE?YES 07/2017 VAPORNO E-CIGARETTENO LATEX QUESTIONNAIRE LATEX ALLERGY : HAVE YOU EVER DEVELOPED ANY TYPE OF REACTION AFTER HANDLING LATEX PRODUCTS SUCH RUBBER GLOVES, CONDOMS, DIAPHRAGMS, BALLOONS, SOCKS, OR UNDERWEAR?NO LATEX ALLERGY : HAVE YOU EVER DEVELOPED ANY TYPE OF REACTION DURING OR AFTER DENTAL APPOINTMENT, VAGINAL/RECTAL EXAMINATION, SURGICAL PROCEDURE, OR ANY OTHER EXPOSURE?NO LATEX RISK : HAVE YOU EVER HAD ANY DIFFICULTY BREATHING OR HIVES AFTER EATING OR HANDLING ANY FRUITS, OR VEGETABLES; SUCH KIWI, BANANAS, STONE FRUITS, OR CHESTNUTSNO LATEX RISK : DO YOU HAVE A PREVIOUS PERSONAL HISTORY OF MORE THAN NINE SURGERIES, SPINA BIFIDA, OR REPEATED CATHERIZATIONS? NO LATEX RISK : ARE YOU FREQUENTLY EXPOSED TO LATEX PRODUCTS IN YOUR OCCUPATION?NO DATE ASKED : 11/22/2020 ALCOHOL USE: NO. ALCOHOL SCREENING DID YOU HAVE A DRINK CONTAINING ALCOHOL IN THE PAST YEAR?NO POINTS0 INTERPRETATIONNEGATIVE RECREATIONAL DRUG USE DRUG USE?NO PATIENT DENIES ABUSE OR MISSUSED OF ANY MEDICATION NO MISUSE OF MEDICATIONS. PATIENT DENIES USE OF ANY ILLEGAL SUBSTANCE INCLUDING MARIJUANA OR COCAINE NO MARIJUANA OR COCAINE. STATES USED MARIJUANA TEENAGER ONLY. CAFFEINE CAFFEINE USE?YES HOW OFTEN AND HOW MUCH? 8 CUPS OF HALF-CAFF COFFEE PER DAY HIV / HEP-C SCREENING HIV TEST OFFERED TO PATIENT:YES DATE OFFERED:06/10/2017 TEST ACCEPTED:NO HEP-C TEST OFFERED TO PATIENT:YES DATE OFFERED:06/10/2017 REASON:PATIENT DECLINED TEST ACCEPTED:NO REASON:PATIENT DECLINED YAZIDISM [id number] VOODOO LANGUAGE LANGUAGES SPOKEN:YORUBA EDUCATION LEVEL OF EDUCATION:SAFETY FIRE BOSS'S DEGREE IN [email or web address] MANAGEMENT 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, WALKER MANAGER OF INTERNAL AUDIT NEEDED?NO DOMESTIC VIOLENCE DO YOU FEEL SAFE IN YOUR ENVIRONMENT?YES 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 DIET: REGULAR. EXERCISE: NO REGULAR EXERCISE. MARITAL STATUS: . OTHERS AT HOME: SON AND GRANDDAUGHTER. TODAY'S VISITNOTES PATIENT DESCRIBES PAIN :ACHING, BURNING, HAVE IT ALL THE TIME, STABBING, SHOOTING, OTHER NUMBING FROM 0-10, WHAT LEVEL IS YOUR PAIN TODAY?6 PRECIPITATING FACTORS STANDING ALLEVIATING FACTORS SITTING OR LAYING DOWN - PFS REFERRAL NEEDED?NO CLERGY REFERRAL NEEDED?NO PUBLIC HEALTH REFERRAL NEEDED?NO WAS THE PROVIDER NOTIFIED OF ANY PERTINENT INFO?YES HAS THE PATIENT BEEN EDUCATED REGARDING HIS/HER PLAN OF CARE?YES HAS THE PATIENT BEEN EDUCATED REGARDING PAIN, THE RISK FOR PAIN, THE IMPORTANCE OF EFFECTIVE PAIN MANAGEMENT, AND THE PAIN ASSESSMENT PROCESS?YES ADVANCE DIRECTIVE ADVANCE DIRECTIVE DISCUSSED WITH PATIENT:YES PATIENT HAS NO ADVANCED DIRECTIVES AND DECLINES INFORMATION ON HCP AT THIS TIME. HOSPITALIZATION/MAJOR DIAGNOSTIC PROCEDURE SURGERIES CHILDBIRTH 1978 REVIEW OF SYSTEMS CONSTITUTIONAL: ANY RECENT FEVER NO . CHILLS NO . WEIGHT CHANGE OF UNKNOWN REASONS NO . GASTROENTEROLOGY: NEW UNEXPLAINABLE CHANGES IN BOWEL CONTROL NO . CONSTIPATION NO . GENITOURINARY: ANY NEW CHANGE IN BLADDER CONTROL? NO . NEUROLOGY: NEW ONSET DIZZINESS OR NEUROLOGICAL CHANGES NOT MENTIONED NO . NEW NUMBNESS OR PAIN PATTERNS NOT MENTIONED AND PERTINENT TO TODAY'S VISIT NO . CARDIOLOGY: NEW CHEST PRESSURE NO . PATIENT DENIES NO . RESPIRATORY: UNEXPLAINABLE COUGH NO . NEW SHORTNESS OF BREATH NO . VITAL SIGNS WT 307.8 LBS, HT 66 IN, BMI 49.67 INDEX, BP 143/67 MM HG, HR 88 /MIN, RR 18 /MIN, TEMP 98.4 F, OXYGEN SAT % 91%, SAFE IN ENV? (Y/N) YES, NA INITIALS SC 10:42T.RAMAKRISHNA JONES. EXAMINATION GENERAL EXAMINATION: GENERAL AWAKE,ALERT ,PLEAASANT . PSYCH AFFECT NORMAL . LUNGS: LUNG GRIMM ARE CLEAR TO AUSCULTATION BILATERALLY. GOOD MOVEMENT OF AIR . HEART: S1, S2 IN A REGULAR RATE AND RHYTHM. NO SIGNIFICANT MURMURS, RUBS OR GALLOPS NOTED . LUMBAR:PALPATION:TENDER OVER BILAT. L4/5-L5/S1 LUMBAR FACETS WITH FACET LOADING.. DIAGNOSTIC TESTS REVIEWED MRI L/S SPINE 2019. ASSESSMENTS LUMBAR FACET ARTHROPATHY - M47.816 (PRIMARY) TREATMENT LUMBAR FACET ARTHROPATHY SALINE LOCK (ORDERED FOR 12/06/2020) NOTES: BILATERAL DIAGNOSTIC LUMBAR FACET BLOCK L4-5,L5-S1 REVIEWED PRE PROCEDURE INFORMATION, PATIENT VERBALIZED UNDERSTANDING NINOSKA JONES PATIENT HAS FAILED CONSERVATIVE TREATMENT TO INCLUDE HOME EXCERSISE AND ACTIVITY MODIFICATIONS.SHE CAN NOT TAKE NONSTEROIDAL MEDICATIONS DUE TO CARDIAC CONDITION. PROCEDURE CODES FA211 ESTABILISHED PATIENT [facility] FACILITY CHARGE DISPOSITION & COMMUNICATION FOLLOW UP POST (REASON: BILATERAL DIAGNOSTIC LUMBAR FACET BLOCK L4-5,L5-S1) ELECTRONICALLY SIGNED BY CHAVEZ CORDERO ON 11/23/2020 AT 01:00 PM EDT DISCLAIMER : THIS IS A VISIT SUMMARY EXTRACTED FROM THE [employer] CHART. IT IS NOT A COPY OF THE [employer] PROGRESS NOTE. NUNU
== END ==
LOC: M PAIN 11:00
PROVIDERS: ATTEND Nurse Practitioner Family
DX: M54.5 Low back pain (principal); E11.9 Type 2 diabetes mellitus without complications; F41.9 Anxiety disorder, unspecified; F32.9 Major depressive disorder, single episode, unspecified; M79.7 Fibromyalgia; G47.00 Insomnia, unspecified; E66.9 Obesity, unspecified; R13.10 Dysphagia, unspecified; I10 Essential (primary) hypertension; M35.00 Sjogren syndrome, unspecified; R32 Unspecified urinary incontinence; F17.210 Nicotine dependence, cigarettes, uncomplicated; Z68.42 Body mass index [BMI] 45.0-49.9, adult; Z79.82 Long term (current) use of aspirin; Z79.899 Other long term (current) drug therapy; Z88.5 Allergy status to narcotic agent

== ENCOUNTER → 2020-12-21 | Outpatient (CLI) | payer OTHER ==
--- NOTE | 2020-12-22 10:05 | ECHO ---
ECHOCARDIOGRAM DATE OF PROCEDURE: 12/21/2020 Age: 65 Gender: F Height: 66 inches Weight: 310 pounds Body Surface Area: 2.41 meters squared REFERRING PHYSICIAN: Radha Park INDICATION: Hypertension, abnormal EKG, obstructive sleep apnea MEASUREMENTS: 2D Measurements: RV - 4.2 cm LV - 4.3 cm Septum 1.2 cm Posterior wall 1.1 cm Aortic Root 3.3 cm LA - 4.0 cm LVEF 75% Doppler Measurements: AV - 1.7 m/s LVOT - 1.35 m/s MV-E 124, A 87, E/A ratio 1.4 Early mitral deceleration time 229 msec E prime medial 7.6, A prime medial 14, E prime lateral 10.5 Average E/E prime ratio 13.7/PCWP - 18.9 mmHg PV - 7.8 m/s Pulmonary artery acceleration time 140 msec PASP 20 mmHg IVC - 2.2 cm COMMENTS: Normal sinus rhythm without interventricular conduction disturbance. Technically very difficult study in light of the patient's body habitus but some diagnostic useful information was still obtained. M-mode echocardiography was not possible and 2-dimensional echocardiography was a challenge and obtained some useful Doppler findings of the patient's left ventricular (LV) inflow tract. Aortic and pulmonic valve tissue Doppler was also obtained. At least borderline left ventricular hypertrophy with hyperkinetic wall motion. Mildly dilated left atrium with grade 2 left ventricular (LV) diastolic dysfunction and slightly elevated current estimated mean left atrial pressure. Slightly dilated right heart chambers with normal wall motion with signal available Doppler estimate or of pulmonary arterial pressure was within normal limits. Inferior vena cava (IVC) size was slightly dilated with what appeared to be adequate respiratory collapse against an elevated central venous pressure at this time. Normal aortic dimensions. Subtle aortic valvular sclerosis without stenosis or apparent insufficiency. Difficult to visualize her mitral valve completely but there was no Doppler sign of left ventricular (LV) inflow tract obstruction and only trace insufficiency. We could not visualize or assess her tricuspid valve. Could not rule out an intracardiac mass but did not notice any pericardial effusion.
== END ==
LOC: M CARPUL 10:40
PROVIDERS: ATTEND Pediatrics
DX: I10 Essential (primary) hypertension (principal); I35.8 Other nonrheumatic aortic valve disorders

== ENCOUNTER → 2021-01-24 | Outpatient (CLI) | payer OTHER | LOC: M LABSMTC 09:56 | PROVIDERS: ATTEND Anesthesiology | DX: Z20.822 Contact with and (suspected) exposure to COVID-19 (principal) ==

== ENCOUNTER 2021-01-26 15:53 | Emergency (ER) | payer OTHER ==
[~2021-01-26] VITALS: Ht 167.6 cm; Wt 140.9 kg
[2021-01-26] MEDS ORDERED: ROPI2TAB3 PO (16:28)
[2021-01-26] MEDS ORDERED: ALBU83IN NEB (16:28)
[2021-01-26] MEDS ORDERED: COMBAER6 (16:28)
[2021-01-26] MEDS ORDERED: ACET650T61 PO (16:28)
[2021-01-26] MEDS ORDERED: OMEP-218 PO (16:28)
[2021-01-26] MEDS ORDERED: VITA200016 PO (16:28)
[2021-01-26] MEDS ORDERED: METF-838 PO (16:28)
[2021-01-26] MEDS ORDERED: ATOR1TAB21 PO (16:28)
[2021-01-26] MEDS ORDERED: OXYB15TA14 PO (16:28)
--- NOTE | 2021-01-26 16:37 | REP ---
INDICATION: DYSPNEA/COUGH. COMPARISON: 06/26/2006 a two view exam TECHNIQUE: Portable FINDINGS: The technique utilized in obtaining the radiograph has magnified the cardiac silhouette and accentuated the interstitial markings. The superior mediastinal structures are midline. The cardiac silhouette is unremarkable in size, shape, and position. The diaphragmatic surfaces of the lungs are regular, and the costophrenic angles are clear. The pulmonary mcneill are clear. The imaged osseous structures are intact. IMPRESSION: There is no acute cardiopulmonary disease. <Electronically signed by Cm Zaragoza > 01/26/21 [id number]
[2021-01-26] MEDS ORDERED: methylPREDNISolone 125MG 2ML VIAL IV ONE (16:45)
[2021-01-26 16:59] LABS: VENOUS BASE EXCESS 2.5 (-2.0-2.0); VENOUS HCO3 29.6 MEQ/L (23.0-27.0); VENOUS O2 SATURATION 91.7 % (60.0-80.0); VENOUS PARTIAL PRESSURE CO2 55.9 mmHg (38.0-50.0); VENOUS PARTIAL PRESSURE O2 60.4 mmHg (30.0-50.0); VENOUS PH 7.342 UNITS (7.330-7.430); VENOUS STANDARD HCO3 26.5 MEQ/L; VENOUS TOTAL CO2 31.3 MEQ/L (24.0-28.0)
[2021-01-26] MEDS: COMBIVENT RESPIMAT 100-20MCG INHALER 4GM INH SCH ×3 (16:59→17:47)
[2021-01-26 17:06] LABS: BASO # 0.1 10^3/uL (0.0-0.2); BASO % 0.6 % (0.0-1.0); EOS # 0.4 10^3/uL (0.0-0.5); EOS % 3.9 % (0.0-3.0); HEMATOCRIT 44.6 % (36.0-47.0); HEMOGLOBIN 14.2 g/dl (12.0-15.5); LYMPH # 2.5 10^3/uL (1.5-5.0); LYMPH % 24.4 % (24.0-44.0); MEAN CORPUSCULAR HEMOGLOBIN 29.8 pg (27.0-33.0); MEAN CORPUSCULAR HGB CONC 31.8 g/dl (32.0-36.5); MEAN CORPUSCULAR VOLUME 93.5 fl (80.0-96.0); MONO # 0.7 10^3/uL (0.0-0.8); MONO % 6.9 % (2.0-8.0); NEUTROPHILS # 6.4 10^3/uL (1.5-8.5); NEUTROPHILS % 63.9 % (36.0-66.0); PLATELET COUNT, AUTOMATED 317 10^3/uL (150-450); RED BLOOD COUNT 4.77 10^6/uL (4.00-5.40); WHITE BLOOD COUNT 10.1 10^3/uL (4.0-10.0)
[2021-01-26 17:32] LABS: ALT/SGPT 38 U/L (12-78); BILIRUBIN,DIRECT < 0.1 MG/DL (0.0-0.2); BILIRUBIN,TOTAL 0.2 MG/DL (0.2-1.0); BLOOD UREA NITROGEN 9 MG/DL (7-18); CARBON DIOXIDE LEVEL 31 MEQ/L (21-32); CHLORIDE LEVEL 102 MEQ/L (98-107); GLOMERULAR FILTRATION RATE > 60.0 (>45); GLUCOSE, FASTING 90 MG/DL (70-100); NT-PRO BNP 22 PG/ML (<125); POTASSIUM SERUM 4.6 MEQ/L (3.5-5.1); SODIUM LEVEL 137 MEQ/L (136-145)
[2021-01-26] MEDS ORDERED: PRED20TA PO (18:24)
[2021-01-26] MEDS ORDERED: AMOX875T2 PO (18:25)
[2021-01-26 19:00] VITALS: BP 146/77
--- NOTE | 2021-01-27 07:50 | ECGEPIP ---
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
== END 2021-01-26 19:03 | disposition left against medical advice (07) ==
LOC: M ED 15:53
DX: J44.1 Chronic obstructive pulmonary disease with (acute) exacerbation (principal); E11.9 Type 2 diabetes mellitus without complications; G89.29 Other chronic pain; Z79.899 Other long term (current) drug therapy; Z79.82 Long term (current) use of aspirin; Z79.84 Long term (current) use of oral hypoglycemic drugs; Z88.5 Allergy status to narcotic agent; F17.210 Nicotine dependence, cigarettes, uncomplicated
CPT/HCPCS: 71045; 80048; 80076; 82803; 83605; 83880; 84443; 85025; 87040; 87798; 93005; 93041; 94640; 94760; 96374; 99285; J2930

== ENCOUNTER 2021-01-29 15:29 | Observation (INO) | payer OTHER ==
[~2021-01-29] VITALS: Ht 167.6 cm; Wt 141.5 kg
[~2021-01-29 15:29] MED LIST changes: +ACET650T61 PO; +ALBU83IN NEB; +AMOX875T2 PO; +ATOR1TAB21 PO; +COMBAER6; +METF-838 PO; +OMEP-218 PO; +OXYB15TA14 PO; +PRED20TA PO; +ROPI2TAB3 PO; +VITA200016 PO
[2021-01-29] MEDS ORDERED: rOPINIRole 1MG TAB PO SCH (21:00)
[2021-01-29] MEDS ORDERED: traZODone 50 MG TAB PO SCH (21:00)
[2021-01-29] MEDS ORDERED: HumaLOG INSULIN (NovoLOG) PER UNIT SC SCH (21:00)
[2021-01-29] MEDS ORDERED: IPRATROPIUM 0.5MG/ALBUTEROL 2.5MG INH SOL UD 3ML (DUONEB) NEB ONE (21:05)
--- NOTE | 2021-01-29 22:33 | REPVR ---
PROCEDURE INFORMATION: Exam: XR Chest Exam date and time: 01/29/2021 9:25 PM Age: 65 years old Clinical indication: Cough and dyspnea; Additional info: Dyspnea/cough TECHNIQUE: Imaging protocol: XR of the chest. Views: 2 views. COMPARISON: 1. CR PORTABLE CHEST X-RAY 2021-01-26 16:[address] CHEST, LUNG CANCER SCREENING - OUTSIDE PRIOR 2019-03-31 13:42 3. XA FLUORO GUIDE SPINE INJECTION 2019-11-22 10:29 FINDINGS: Limitations: Limited by patient's body habitus. Lungs: Left lung base atelectasis or trace infiltrate. Pleural spaces: Unremarkable. No pleural effusion. No pneumothorax. Heart/Mediastinum: Unremarkable. No cardiomegaly. Bones/joints: Unremarkable. IMPRESSION: Left lung base atelectasis or trace infiltrate. Electronically signed by: Brando Huynh On 01/29/2021 22:33:11 PM
[2021-01-29 22:34] LABS: BASO % 0.1 % (0.0-1.0); EOS % 0.2 % (0.0-3.0); HEMATOCRIT 50.8 % (36.0-47.0); HEMOGLOBIN 15.8 g/dl (12.0-15.5); LYMPH # 2.5 10^3/uL (1.5-5.0); LYMPH % 18.2 % (24.0-44.0); MEAN CORPUSCULAR HEMOGLOBIN 29.2 pg (27.0-33.0); MEAN CORPUSCULAR HGB CONC 31.1 g/dl (32.0-36.5); MEAN CORPUSCULAR VOLUME 93.9 fl (80.0-96.0); MONO # 0.4 10^3/uL (0.0-0.8); NEUTROPHILS # 10.6 10^3/uL (1.5-8.5); NEUTROPHILS % 78.1 % (36.0-66.0); PLATELET COUNT, AUTOMATED 360 10^3/uL (150-450); RED BLOOD COUNT 5.41 10^6/uL (4.00-5.40); WHITE BLOOD COUNT 13.6 10^3/uL (4.0-10.0)
[2021-01-29 23:01] LABS: ALT/SGPT 42 U/L (12-78); BILIRUBIN,DIRECT 0.1 MG/DL (0.0-0.2); BILIRUBIN,TOTAL 0.3 MG/DL (0.2-1.0); BLOOD UREA NITROGEN 15 MG/DL (7-18); CALCIUM LEVEL 9.1 MG/DL (8.8-10.2); CARBON DIOXIDE LEVEL 32 MEQ/L (21-32); CHLORIDE LEVEL 103 MEQ/L (98-107); CK-MB VALUE MASS 3.2 NG/ML (<3.6); CPK CREATINE PHOSPHOKINASE 83 U/L (26-192); CREATININE FOR GFR 0.77 MG/DL (0.55-1.30); GLOMERULAR FILTRATION RATE > 60.0 (>45); GLUCOSE, FASTING 122 MG/DL (70-100); MB/CK RELATIVE INDEX 3.86 (< OR =4); NT-PRO BNP 42 PG/ML (<125); POTASSIUM SERUM 5.1 MEQ/L (3.5-5.1); SODIUM LEVEL 137 MEQ/L (136-145); TOTAL PROTEIN 7.3 GM/DL (6.4-8.2); TROPONIN I < 0.02 NG/ML (< 0.10)
[2021-01-29] MEDS ORDERED: IPRATROPIUM 0.5MG/ALBUTEROL 2.5MG INH SOL UD 3ML (DUONEB) NEB PRN (23:15)
[2021-01-29] MEDS ORDERED: MOM 30ML SUSPENSION UDC PO PRN (23:15)
[2021-01-29] MEDS ORDERED: methylPREDNISolone 125MG 2ML VIAL IV ONE (23:15)
[2021-01-29] MEDS ORDERED: MAALOX 30 ML SUSP *UDC PO PRN (23:15)
[2021-01-29] MEDS ORDERED: ACETAMINOPHEN TAB 650MG DOSE (2X325MG) PO PRN (23:15)
--- NOTE | 2021-01-29 23:17 | HPEPDOC ---
[facility] Medical History & Physical Date of Admission Jan 29, 2021 Date of Service: Jan 29, 2021 History and Physical CHIEF COMPLAINT: shortness of breath HISTORY OF PRESENT ILLNESS: 65-year-old female with a past medical history of DM 2, COPD, not O2 dependent, urinary incontinence, chronic back pain, returns to the ER with worsening shortness of breath. Patient was seen on January 26 for the same. She received 125 mg of IV Solu-Medrol, and was DC on prednisone 60 and course of augmentin. Patient states that she has persistent wheezing and difficulty ambulating due to shortness of breath. She was given a DuoNeb treatment in the ER which improved her wheezing. Patient will be admitted to hospitalist service for management of acute COPD exacerbation. Patient saturating 90% on room air. He shows mild respiratory acidosis. PAST MEDICAL HISTORY: DM2 COPD, not O2 dependent, currently smoking 2 pack per day urinary incontinence Chronic back pain Chronic neck pain Fibromyalgia Tinnitus PAST SURGICAL HISTORY: EXCISION LEFT NOSE BCC 1986, APPENDECTOMY 1974 , BILATERAL CARPAL TUNNEL SURGERY , BILATERAL CATARACT SURGERY 1994, LAMINECTOMY C2-C5 1999, LEFT KNEE REPLACEMENT 2012, UPPER GI ENDOSCOPY 03/2020. SOCIAL HISTORY: active smoker, 2 pack/day denies etoh use denies illicit drug use FAMILY HISTORY: FATHER: 54 YRS, HI MOTHER: 84 YRS, DEMENTIA, DIAGNOSED WITH HYPERTENSION, DIABETES SIBLINGS: ALIVE, BROTHER-DEPRESSION, EARLY ONSET OF DEMENTIA SISTER-DEPRESSION OLDEST BROTHER - CHF SON(S): ALIVE PATERNAL GRAND FATHER: HI PATERNAL GRAND MOTHER: GLAUCOMA, MUSCULAR DEGENERATION MATERNAL GRAND FATHER: HI MATERNAL GRAND MOTHER: PANCREATIC CA,GLAUCOMA, OTHER MALIGNANT NEOPLASM OF UNSPECIFIED SITE, HYPERTENSION 2 BROTHER(S) , 2 SISTER(S) . 1 SON(S) . DENIES FAMILY HX OF MM. ALLERGIES: Please see below. REVIEW OF SYSTEMS: 10 point ROS conducted, relevant findings are noted in the HPI. HOME MEDICATIONS: Please see below. PHYSICAL EXAMINATION: VITAL SIGNS: please see below General: NAD, comfortable HEENT: PERRLA, EOMI, sclerae clear Neck: supple, normal ROM, no JVD Respiratory: Essentially bilaterally, mild wheezing. CVS: RRR, normal S1, S2, no murmurs Abdo: soft, no masses, no hepatosplenomegaly, BS+, no rebound tenderness Extremities: no edema, pulses 2+ MSK: no joint deformities, normal ROM Neuro: no focal neuro deficits, moving all 4 extremities, CN2-12 intact. Strength 5/5 in all 4 extremities. No nystagmus. Psych: calm, cooperative, AAO x 3 LABORATORY DATA: See below. IMAGING: FINDINGS: Limitations: Limited by patient's body habitus. Lungs: Left lung base atelectasis or trace infiltrate. Pleural spaces: Unremarkable. No pleural effusion. No pneumothorax. Heart/Mediastinum: Unremarkable. No cardiomegaly. Bones/joints: Unremarkable. IMPRESSION: Left lung base atelectasis or trace infiltrate. MICROBIOLOGY: Please see below. ASSESSMENT: 65-year-old female with a past medical history of DM 2, COPD, not O2 dependent, urinary incontinence, chronic back pain, returns to the ER with worsening shortness of breath. Patient was seen on January 26 for the same. She received 100 mg of IV Solu-Medrol discharge was 60 mg daily of prednisone. Patient states that she has persistent wheezing and difficulty ambulating due to shortness of breath. She was given a DuoNeb treatment in the ER which improved her wheezing. Patient will be admitted to hospitalist service for management of acute COPD exacerbation. Patient saturating 90% on room air. He shows mild r espiratory acidosis. . PLAN: Acute COPD exacerbation: returns after ER visit for same 3 days later. Taking prednisone 60mg daily. S/p duonebs in ER. Ordered one dose solumedrol 125 mg IV. C/w duonebs. Will continue augmentin inpatient. DM2: hold oral meds. FSBS, ISS AC and HS. Hypoglycemic precautions. Depression/anxiety: c/w venlafaxine. Dispo: admit for obs. Pending clinical improvement. Vital Signs Vital Signs Date Time Temp Pulse Resp B/P (MAP) Pulse Ox O2 Delivery O2 Flow Rate FiO2 01/29/21 21:45 66 18 121/57 (78) 90 Room Air 01/29/21 21:43 97.2 Laboratory Data Labs 24H Laboratory Tests 2 01/29/21 20:51: Immature Granulocyte % (Auto) 0.4, Neutrophils (%) (Auto) 78.1H, Lymphocytes (%) (Auto) 18.2L, Monocytes (%) (Auto) 3.0, Eosinophils (%) (Auto) 0.2, Basophils (%) (Auto) 0.1, Neutrophils # (Auto) 10.6H, Lymphocytes # (Auto) 2.5, Monocytes # (Auto) 0.4, Eosinophils # (Auto) 0.0, Basophils # (Auto) 0.0, Nucleated Red Blood Cells % (auto) 0.0, Anion Gap 2L, Glomerular Filtration Rate > 60.0, Calcium Level 9.1, Total Bilirubin 0.3, Direct Bilirubin 0.1, Aspartate Amino Transf (AST/SGOT) 28, Alanine Aminotransferase (ALT/SGPT) 42, Alkaline Phosphatase 120H, Total Creatine Kinase 83, Creatine Kinase MB 3.2, Creatine Kinase MB Relative Index 3.86, Troponin I < 0.02, XI-Dde-C-Type Natriuretic Peptide 42, Total Protein 7.3, Albumin 3.0L, Albumin/Globulin Ratio 0.7L 01/29/21 21:21: POC pH (Misc Panel) 7.344L, POC Base Excess (Misc Panel) 6.0H, POC Saturated Percent O2 (Misc) 83L, POC pO2 (Misc Panel) 52.0L, POC pCO2 (Misc Panel) 57.9H, POC HCO3 (Misc Panel) 31.5H, POC Total CO2 (Misc Panel) 33.0H 01/29/21 22:32: CBC/BMP Laboratory Tests 01/29/21 20:51 Home Medications Scheduled Acetaminophen (Tylenol Arthritis) 650 Mg Tablet.er, 1,300 MG PO BID Amoxicillin/Potassium Clav (Augmentin 875-125 Tablet) 1 Each Tablet, 875 MG PO BID STARTED ON 01/27/21 Aspirin (Aspirin EC) 81 Mg Tablet.dr, 81 MG PO DAILY Atorvastatin Calcium (Atorvastatin Calcium) 20 Mg Tablet, 20 MG PO DAILY Cetirizine HCl (Cetirizine HCl) 10 Mg Tablet, 10 MG PO DAILY Cholecalciferol (Vitamin D3) (Vitamin D3) 50 Mcg Capsule, 50 MCG PO DAILY Cyanocobalamin (Vitamin B-12) (Vitamin B-12) 500 Mcg Tablet, 500 MCG PO DAILY Glucosamine Sulfate Dipot Chlr (Glucosamine) 1,000 Mg Tablet, 2,000 MG PO DAILY Lisinopril (Lisinopril) 20 Mg Tablet, 20 MG PO DAILY Magnesium Oxide (Magnesium) 400 Mg Capsule, 800 MG PO DAILY Meloxicam (Meloxicam) 15 Mg Tablet, 15 MG PO DAILY TAKES AT 1330 Metformin HCl (Metformin HCl ER) 500 Mg Tab.er.24h, 500 MG PO QPM TAKES AT DINNER Omeprazole (Omeprazole) 20 Mg Capsule.dr, 20 MG PO BID Oxybutynin Chloride (Oxybutynin Chloride ER) 15 Mg Tab.er.24, 15 MG PO DAILY TAKES AT 1500 Prednisone (Prednisone) 20 Mg Tablet, 60 MG PO DAILY STARTED ON 01/27/21 Ropinirole HCl (Ropinirole HCl) 2 Mg Tablet, 2 MG PO BID 1500, QHS Trazodone HCl (Trazodone HCl) 150 Mg Tablet, 150 MG PO QHS Venlafaxine HCl (Venlafaxine HCl) 75 Mg Tablet, 150 MG PO BID MORNING, 1330 Vitamin E (Dl,Tocopheryl Acet) (Vitamin E) 400 Unit Capsule, 400 UNIT PO DAILY Scheduled PRN Ammonium Lactate (Ammonium Lactate) 12% Cream..g., 1 DOSE TOP DAILY PRN for DRY SKIN APPLIES TO FEET Ipratropium/Albuterol Sulfate (Combivent Respimat 20-100 Mcg) 4 Gm Mist.inhal, 1 PUFF INH QID PRN for SHORTNESS OF BREATH Nystatin (Nystatin Powder) 15 Gm Powder, 1 DOSE TOP BID PRN for RASH APPLIES UNDER BREASTS Propylene Glycol/Peg 400 (Lubricant Eye Drops) 15 Ml Drops, 1 DROP OU QID PRN for DRY EYES Allergies Coded Allergies: oxycodone (Verified Adverse Reaction, Unknown, "SPACEY", 04/07/20) A-FIB/CHADSVASC A-FIB History Current/History of A-Fib/PAF?: No KEY GARNER MD Jan 29, 2021 23:17
[2021-01-29 23:19] LABS: RSV AMPLIFICATION NEGATIVE (NEGATIVE)
[2021-01-30] MEDS ORDERED: OXYB15TA14 PO (00:21)
[2021-01-30] MEDS ORDERED: NYST1POW9 TOP (00:21)
[2021-01-30] MEDS ORDERED: VITA500T41 PO (00:21)
[2021-01-30] MEDS ORDERED: PROP15DR3 OU (00:21)
[2021-01-30] MEDS ORDERED: D3 S1CAP3 PO (00:21)
[2021-01-30] MEDS ORDERED: AMMO12CR7 TOP (00:21)
[2021-01-30] MEDS ORDERED: VITAE40CA PO (00:21)
[2021-01-30] MEDS ORDERED: METF-838 PO (00:21)
[2021-01-30] MEDS ORDERED: ROPI2TAB3 PO (00:21)
[2021-01-30] MEDS ORDERED: ATOR1TAB21 PO (00:21)
[2021-01-30] MEDS ORDERED: PRED20TA PO (00:21)
[2021-01-30] MEDS ORDERED: COMBAER6 INH (00:21)
[2021-01-30] MEDS ORDERED: AUGM875T28 PO (00:21)
[2021-01-30] MEDS ORDERED: ASPI-161 PO (00:21)
[2021-01-30] MEDS ORDERED: OMEP1CAP73 PO (00:21)
[2021-01-30] MEDS ORDERED: HOME MED LIST COMPLETE! XX SCH (00:25)
[2021-01-30] MEDS ORDERED: GLUCAGON INJ 1MG VIAL SC PRN (01:05)
[2021-01-30] MEDS ORDERED: DEXTROSE 50% 50 ML SYRINGE IV PRN (01:05)
[2021-01-30] MEDS ORDERED: GLUCOSE 4GM CHEW TABLET PO PRN (01:05)
[2021-01-30] MEDS ORDERED: NYSTATIN 100,000 UNITS/GM TOPICAL PWD 15 GM TOP PRN (01:05)
[2021-01-30] MEDS ORDERED: COMBIVENT RESPIMAT 100-20MCG INHALER 4GM INH PRN (01:05)
[2021-01-30] MEDS: AUGMENTIN 875 MG TAB PO SCH ×2 (02:11→09:12)
[2021-01-30] MEDS: OMEPRAZOLE 20 MG CAP PO SCH ×2 (02:12→09:12)
--- NOTE | 2021-01-30 02:35 | REPVR ---
PROCEDURE INFORMATION: Exam: US Duplex Lower Extremity Veins, Bilateral Exam date and time: 01/30/2021 1:38 AM Age: 65 years old Clinical indication: Swelling (edema) of limb; Lower extremity, right and lower extremity, left; Additional info: R/O dvt TECHNIQUE: Imaging protocol: Real-time duplex ultrasound of the extremities with 2-D mendenhall scale, color Doppler flow and spectral waveform analysis with image documentation. Complete exam focused on the bilateral lower extremity veins. COMPARISON: US BILAT LOWER EXTREM ARTERIAL 2020-08-29 13:25 FINDINGS: Right deep veins: Unremarkable. The common femoral, femoral, proximal profunda femoral and popliteal veins are patent without thrombus. Normal Doppler waveforms. Normal compressibility and/or augmentation response. Calf veins not well visualized. Right superficial veins: Saphenofemoral junction is patent without thrombus. Left deep veins: Unremarkable. The common femoral, femoral, proximal profunda femoral and popliteal veins are patent without thrombus. Normal Doppler waveforms. Normal compressibility and/or augmentation response. Calf veins not adequately visualized. Left superficial veins: Saphenofemoral junction is patent without thrombus. Soft tissues: Unremarkable. IMPRESSION: No evidence of deep vein thrombosis from the bilateral common femoral to popliteal veins. Electronically signed by: Brando Huynh On 01/30/2021 02:34:43 AM
[2021-01-30] MEDS: HEPARIN SOD (PORCINE) 5000UNITS/ML 1ML VIAL/SYRINGE SC SCH ×2 (06:00→14:00)
[2021-01-30 08:00] VITALS: BP 106/77
[2021-01-30] MEDS ORDERED: ASPIRIN 81MG ENTERIC TABLET PO SCH (09:00)
[2021-01-30] MEDS ORDERED: AZITHROMYCIN 250MG TABLET PO SCH (09:00)
[2021-01-30] MEDS ORDERED: VITAMIN E 400 INTERNATIONAL UNITS CAP PO SCH (09:00)
[2021-01-30] MEDS ORDERED: CYANOCOBALAMIN 500 MCG TAB PO SCH (09:00)
[2021-01-30] MEDS ORDERED: MAGNESIUM OXIDE 400MG TAB (MAG-OX) PO SCH (09:00)
[2021-01-30] MEDS ORDERED: predniSONE 20 MG TAB PO SCH (09:00)
[2021-01-30] MEDS ORDERED: CETIRIZINE (ZyrTEC) 10 MG TAB PO SCH (09:00)
[2021-01-30] MEDS ORDERED: ATORVASTATIN 20 MG TAB PO SCH (09:00)
[2021-01-30] MEDS ORDERED: LACTIC ACID 12% LOTION 225 GM BTL TOP PRN (09:05)
[2021-01-30] MEDS: HumaLOG INSULIN (NovoLOG) PER UNIT SC SCH ×2 (09:12→12:32)
[2021-01-30 09:14] VITALS: BP 129/76
[2021-01-30] MEDS: VENLAFAXINE 37.5 MG TAB PO SCH ×2 (09:15→12:32)
[2021-01-30] MEDS ORDERED: AZIT-12 PO (12:09)
[2021-01-30] MEDS ORDERED: PRED10TA2 PO (12:09)
--- NOTE | 2021-01-30 13:04 | DS.PDOC ---
Discharge Summary General Date of Admission Jan 29, 2021 at 23:15 Date of Discharge 01/30/2021 Attending Physician: ARNAUD ESQUEDA MD Discharge Summary PROCEDURES PERFORMED DURING STAY: None ADMITTING DIAGNOSES: COPD exacerbation DISCHARGE DIAGNOSES: Recent diagnosis of CAP still on treatment COPD exacerbation DM2 Nicotine addiction, smoking 2 pack per day, referred to [facility] for support Chronic urinary incontinence Chronic back pain Chronic neck pain Fibromyalgia COMPLICATIONS/CHIEF COMPLAINT: Copd Exacerbation. HISTORY OF PRESENT ILLNESS: 65-year-old W with a past medical history of DM 2, COPD, not O2 dependent, urinary incontinence, chronic back pain, who returned to the ER with worsening shortness of breath after being seen on January 26 for the same during which she received 125 mg of IV Solu-Medrol, and was DC on prednisone 60 and course of augmentin. Patient reported that she had persistent wheezing and difficulty ambulating due to shortness of breath. She was given a DuoNeb treatment in the ER which improved her wheezing and admitted to hospitalist service for management of acute COPD exacerbation and was saturating 90% on room air. HOSPITAL COURSE: On admission, she was continued on the augmentin and azithromycin was added on for atypical coverage given the ongoing PNA for which she was under treatment. She felt much better by morning. We discussed at length the benefits of quitting smoking and how it is likely contributing to her symptoms and she agreed to taking information for [employer] quits a support program via [facility]. She declined patches and gum at this time. I am now discharging her home with 7d of azithro in addition to her augmentin that she will complete, and I changed her steroids to a taper instead of a 5d pulse. She will continue her mdis and plans to quit smoking at this time. She is to be seen by her PCP within 1 week of hospital discharge. DISCHARGE MEDICATIONS: Please see below. ALLERGIES: Please see below. PHYSICAL EXAMINATION ON DISCHARGE: VITAL SIGNS: Please see below. General: NAD, comfortable HEENT: PERRLA, EOMI, sclerae clear Neck: supple, normal ROM, no JVD Respiratory: No wheezing noted this morning, CTAB CVS: RRR, normal S1, S2, no murmurs Abdo: soft, no masses, no hepatosplenomegaly, BS+, no rebound tenderness Extremities: no edema, pulses 2+ Neuro: no focal neuro deficits, moving all 4 extremities, CN3-12 intact. Strength 5/5 in all 4 extremities. Psych: calm, cooperative, AAO x 3 LABORATORY DATA: Please see below. IMAGING: CXR: Lungs: Left lung base atelectasis or trace infiltrate. Pleural spaces: Unremarkable. No pleural effusion. No pneumothorax. Heart/Mediastinum: Unremarkable. No cardiomegaly. Bones/joints: Unremarkable. Bilateral LE venous doppler US: No evidence of deep vein thrombosis from the bilateral common femoral to popliteal veins. PROGNOSIS: Good ACTIVITY: [As tolerated]. DIET: regular DISCHARGE PLAN: Home with augmentin/azithro and pred taper. Encouraged to quit smoking. DISPOSITION: Home DISCHARGE INSTRUCTIONS: Home with augmentin/azithro and pred taper. Encouraged to quit smoking. ITEMS TO FOLLOWUP ON ON OUTPATIENT: COPD exacerbation resolution of CAP Quitting smoking DISCHARGE CONDITION: Stable TIME SPENT ON DISCHARGE: 40 minutes. Vital Signs/I&Os Vital Signs Date Time Temp Pulse Resp B/P (MAP) Pulse Ox O2 Delivery O2 Flow Rate FiO2 01/30/21 09:14 129/76 01/30/21 08:00 98.1 102 20 90 Nasal Cannula 1.0 Laboratory Data Labs 24H Laboratory Tests 2 01/29/21 20:51: Immature Granulocyte % (Auto) 0.4, Neutrophils (%) (Auto) 78.1H, Lymphocytes (%) (Auto) 18.2L, Monocytes (%) (Auto) 3.0, Eosinophils (%) (Auto) 0.2, Basophils (%) (Auto) 0.1, Neutrophils # (Auto) 10.6H, Lymphocytes # (Auto) 2.5, Monocytes # (Auto) 0.4, Eosinophils # (Auto) 0.0, Basophils # (Auto) 0.0, Nucleated Red Blood Cells % (auto) 0.0, Anion Gap 2L, Glomerular Filtration Rate > 60.0, Calcium Level 9.1, Total Bilirubin 0.3, Direct Bilirubin 0.1, Aspartate Amino Transf (AST/SGOT) 28, Alanine Aminotransferase (ALT/SGPT) 42, Alkaline Phosphatase 120H, Total Creatine Kinase 83, Creatine Kinase MB 3.2, Creatine Kinase MB Relative Index 3.86, Troponin I < 0.02, SF-Yue-L-Type Natriuretic Peptide 42, Total Protein 7.3, Albumin 3.0L, Albumin/Globulin Ratio 0.7L 01/29/21 21:21: POC pH (Misc Panel) 7.344L, POC Base Excess (Misc Panel) 6.0H, POC Saturated Percent O2 (Misc) 83L, POC pO2 (Misc Panel) 52.0L, POC pCO2 (Misc Panel) 57.9H, POC HCO3 (Misc Panel) 31.5H, POC Total CO2 (Misc Panel) 33.0H 01/29/21 22:32: Coronavirus (COVID-19)(PCR) NEGATIVE, Influenza Type A (RT-PCR) NEGATIVE, Influenza Type B (RT-PCR) NEGATIVE, Respiratory Syncytial Virus (PCR) NEGATIVE 01/30/21 09:05: Bedside Glucose (Misc Panel) 176H 01/30/21 11:29: Bedside Glucose (Misc Panel) 166H CBC/BMP Laboratory Tests 01/29/21 20:51 FSBS Laboratory Tests Test 01/30/21 09:05 01/30/21 11:29 Range/Units Bedside Glucose (Misc Panel) 176 166 80-115 MG/DL Discharge Medications Scheduled Acetaminophen (Tylenol Arthritis) 650 Mg Tablet.er, 1,300 MG PO BID, (Reported) Amoxicillin/Potassium Clav (Augmentin 875-125 Tablet) 1 Each Tablet, 875 MG PO BID, (Reported) STARTED ON 01/27/21 Aspirin (Aspirin EC) 81 Mg Tablet.dr, 81 MG PO DAILY, (Reported) Atorvastatin Calcium (Atorvastatin Calcium) 20 Mg Tablet, 20 MG PO DAILY, (Reported) Azithromycin (Azithromycin) 250 Mg Tablet, 500 MG PO DAILY Cetirizine HCl (Cetirizine HCl) 10 Mg Tablet, 10 MG PO DAILY, (Reported) Cholecalciferol (Vitamin D3) (Vitamin D3) 50 Mcg Capsule, 50 MCG PO DAILY, (Reported) Cyanocobalamin (Vitamin B-12) (Vitamin B-12) 500 Mcg Tablet, 500 MCG PO DAILY, (Reported) Glucosamine Sulfate Dipot Chlr (Glucosamine) 1,000 Mg Tablet, 2,000 MG PO DAILY, (Reported) Lisinopril (Lisinopril) 20 Mg Tablet, 20 MG PO DAILY, (Reported) Magnesium Oxide (Magnesium) 400 Mg Capsule, 800 MG PO DAILY, (Reported) Meloxicam (Meloxicam) 15 Mg Tablet, 15 MG PO DAILY, (Reported) TAKES AT 1330 Metformin HCl (Metformin HCl ER) 500 Mg Tab.er.24h, 500 MG PO QPM, (Reported) TAKES AT DINNER Omeprazole (Omeprazole) 20 Mg Capsule.dr, 20 MG PO BID, (Reported) Oxybutynin Chloride (Oxybutynin Chloride ER) 15 Mg Tab.er.24, 15 MG PO DAILY, (Reported) TAKES AT 1500 Prednisone (Prednisone) 10 Mg Tablet, 1 TAB PO ASDIRECTED 5tabs daily for 3d, then 4tabs daily for 3d, then 3tabs daily for 3d, then 2tabs daily for 3d, then 1tab daily for 3d. Ropinirole HCl (Ropinirole HCl) 2 Mg Tablet, 2 MG PO BID, (Reported) 1500, QHS Trazodone HCl (Trazodone HCl) 150 Mg Tablet, 150 MG PO QHS, (Reported) Venlafaxine HCl (Venlafaxine HCl) 75 Mg Tablet, 150 MG PO BID, (Reported) MORNING, 1330 Vitamin E (Dl,Tocopheryl Acet) (Vitamin E) 400 Unit Capsule, 400 UNIT PO DAILY, (Reported) Scheduled PRN Ammonium Lactate (Ammonium Lactate) 12% Cream..g., 1 DOSE TOP DAILY PRN for DRY SKIN, (Reported) APPLIES TO FEET Ipratropium/Albuterol Sulfate (Combivent Respimat 20-100 Mcg) 4 Gm Mist.inhal, 1 PUFF INH QID PRN for SHORTNESS OF BREATH, (Reported) Nystatin (Nystatin Powder) 15 Gm Powder, 1 DOSE TOP BID PRN for RASH, (Reported) APPLIES UNDER BREASTS Propylene Glycol/Peg 400 (Lubricant Eye Drops) 15 Ml Drops, 1 DROP OU QID PRN for DRY EYES, (Reported) Allergies Coded Allergies: oxycodone (Verified Adverse Reaction, Unknown, "SPACEY", 04/07/20) ARNAUD ESQUEDA MD Jan 30, 2021 13:04
--- NOTE | 2021-01-30 13:05 | IPNPDOC ---
Text Note Date of Service The patient was seen on 01/30/21. NOTE SUBJECTIVE: -No acute complaints VITAL SIGNS: please see below General: NAD, comfortable HEENT: PERRLA, EOMI, sclerae clear Neck: supple, normal ROM, no JVD Respiratory: Scattered wheezing, no crackles or rhonchi CVS: RRR, normal S1, S2, no murmurs Abdo: soft, no masses, no hepatosplenomegaly, BS+, no rebound tenderness Extremities: no edema, pulses 2+ MSK: no joint deformities, normal ROM Neuro: no focal neuro deficits, moving all 4 extremities, CN3-12 intact. Strength 5/5 in all 4 extremities Psych: calm, cooperative, AAO x 3 LABORATORY DATA: Reviewed IMAGING: FINDINGS: Limitations: Limited by patient's body habitus. Lungs: Left lung base atelectasis or trace infiltrate. Pleural spaces: Unremarkable. No pleural effusion. No pneumothorax. Heart/Mediastinum: Unremarkable. No cardiomegaly. Bones/joints: Unremarkable. IMPRESSION: Left lung base atelectasis or trace infiltrate. MICROBIOLOGY: Please see below. ASSESSMENT: 65-year-old W with DM 2, COPD, not O2 dependent, urinary incontinence, chronic back pain, who was recently started on augmentin and prednisone for CAP and COPD exacerbation who returned to the ED with worsening shortness of breath and admitted for management of acute COPD exacerbation. PLAN: Acute COPD exacerbation i/s/o CAP: -s/p solumedrol 125mg x 1 in the ED, to resume prednisone 60mg daily. -continue scheduled duonebs -Will continue augmentin, and the added on azithro by the admitting team -incentive spirometry DM2: -FSBS, ISS AC and HS. -Hypoglycemic precautions. Depression/anxiety: -c/w venlafaxine. Dispo: admit for obs. Pending clinical improvement. may be able to discharge home today if clinical improvement continues VS,Jordanbone, I+O VS, Fishbone, I+O Laboratory Tests 01/29/21 20:51 Vital Signs Date Time Temp Pulse Resp B/P (MAP) Pulse Ox O2 Delivery O2 Flow Rate FiO2 01/30/21 08:00 98.1 102 20 106/77 (87) 90 Nasal Cannula 1.0 ARNAUD ESQUEDA MD Jan 30, 2021 09:07
[2021-01-30] MEDS ORDERED: MELOXICAM (MOBIC) 7.5 MG TAB PO SCH (13:30)
[2021-01-30 14:00] VITALS: BP 106/81
[2021-01-30] MEDS ORDERED: oxyBUTYnin *DITROPAN XL* 5 MG TABCR PO SCH (15:00)
--- NOTE | 2021-01-31 06:50 | ECGEPIP ---
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
== END 2021-01-30 15:00 | disposition home or self-care (01) ==
LOC: M ED 15:29 → M ED INP 23:15 → ENRESERV 01-30 06:42 → M MS5PR 01-30 07:45
PROVIDERS: ADMIT Family Medicine; ATTEND Internal Medicine
DX: J18.9 Pneumonia, unspecified organism (principal); J44.9 Chronic obstructive pulmonary disease, unspecified; E11.9 Type 2 diabetes mellitus without complications; F17.218 Nicotine dependence, cigarettes, with other nicotine-induced disorders; R32 Unspecified urinary incontinence; G89.29 Other chronic pain; M54.5 Low back pain; M54.2 Cervicalgia; M79.7 Fibromyalgia; Z79.82 Long term (current) use of aspirin; Z79.899 Other long term (current) drug therapy; Z79.84 Long term (current) use of oral hypoglycemic drugs; Z88.5 Allergy status to narcotic agent
CPT/HCPCS: 36600; 71046; 80048; 80076; 82550; 82553; 82803; 83880; 85025; 87631; 93005; 93970; 96374; 99285; J2930; J7512

== ENCOUNTER → 2021-02-09 | Outpatient (CLI) | payer OTHER ==
[~2021-02-09] MED LIST changes: +AMMO12CR7 TOP; +ASPI-161 PO; +AZIT-12 PO; +COMBAER6 INH; +D3 S1CAP3 PO; +NYST1POW9 TOP; +OMEP1CAP73 PO; +PRED10TA2 PO; +PROP15DR3 OU; +VITA500T41 PO; +VITAE40CA PO
--- NOTE | 2021-02-11 18:09 | REPVR ---
PROCEDURE INFORMATION: Exam: MR Cervical Spine Without Contrast Exam date and time: 02/09/2021 1:16 PM Age: 65 years old Clinical indication: Pain; Cervicalgia; Prior surgery; Surgery date: 6+ months; Additional info: Cervicalgia, radiculopathy TECHNIQUE: Imaging protocol: Multiplanar magnetic resonance images of the cervical spine without contrast. COMPARISON: XA FLUORO GUIDE SPINE INJECTION 11/22/2019 10:29 AM FINDINGS: Vertebrae: Straightening of the normal cervical lordosis may be related to patient position or due to muscle spasm. There is slight reversal of the normal cervical lordosis at C4-C5. Disc spaces: There is loss of disc space height and T2 signal throughout the intervertebral disc spaces, with loss of disc space height in the lower cervical spine and upper thoracic spine, findings related to degenerative disc disease. Spinal cord: Normal signal. No cord compression. C1-C2: There are degenerative changes of the anterior C1-C2 articulation without erosive change. C2-C3: There are postoperative changes from posterior decompression and probable laminoplasty. No significant disc disease. No significant spinal stenosis. There are uncovertebral joint degenerative changes with mild the right neural foramina. C3-C4: There are postop changes from posterior decompression and probable laminoplasty. There is a small central disc osteophyte complex which does not reach the cord. No significant disc disease. No significant spinal stenosis. There are uncovertebral joint degenerative changes moderate the neural foramina. C4-C5: There are postoperative changes from posterior decompression and probable laminoplasty. There is a disc osteophyte complex which extends to the cord and results in central stenosis, with the AP of the central canal measuring 8.8 mm. There are uncovertebral joint degenerative changes with moderate to severe narrowing of the right neural foramina. C5-C6: There are postoperative changes from posterior decompression and probable laminoplasty. No significant disc disease. No significant spinal stenosis. There are uncovertebral joint degenerative changes with moderate narrowing of the left neural foramina. C6-C7: There are postoperative changes from posterior decompression and probable laminoplasty. No significant disc disease. No significant spinal stenosis. There are uncovertebral joint degenerative changes with moderate narrowing of the left neural foramina. C7-T1: No significant disc disease. No significant spinal stenosis. There are uncovertebral joint degenerative changes with mild to moderate narrowing of the neural foramina bilaterally. Soft tissues: Unremarkable. Thyroid: Thyroid is enlarged but not fully imaged. Vertebral arteries: Expected flow voids in the vertebral arteries. IMPRESSION: 1. There are postoperative changes throughout the cervical spine. 2. At C4-C5, there is a disc osteophyte complex which extends to but does not cause mass effect on cord. There are uncovertebral joint and facet joint degenerative changes with moderate narrowing of the neural foramina and central stenosis. 3. Straightening of the normal cervical lordosis may be related to patient position or due to muscle spasm. Electronically signed by: Chase Reis On 02/11/2021 18:09:46 PM
== END ==
LOC: M PLARAD 12:30
PROVIDERS: ATTEND Physician Assistant Medical
DX: M50.10 Cervical disc disorder with radiculopathy, unspecified cervical region (principal); M25.78 Osteophyte, vertebrae

== ENCOUNTER → 2021-10-16 | Outpatient (REF) | payer OTHER ==
[~2021-10-16] MED LIST changes: -ASPI-281 PO; +ASPI-310 PO; +FEXO-117; -FEXO180T58; +OMEP-173 PO; -OMEP-218 PO
[2021-10-16 12:45] LABS: APPEARANCE, URINE HAZY (CLEAR); BACTERIA, URINE AUTO NEGATIVE (NEGATIVE); BILIRUBIN, URINE AUTO NEGATIVE (NEGATIVE); BLOOD, URINE BLOOD NEGATIVE (NEGATIVE); COLOR, URINE YELLOW (YELLOW); GLUCOSE, URINE (UA) AUTO NEGATIVE (NEGATIVE); KETONE, URINE AUTO NEGATIVE (NEGATIVE); LEUKOCYTE ESTERASE, URINE AUTO NEGATIVE (NEGATIVE); MUCUS, URINE SMALL (NEGATIVE); NITRITE, URINE AUTO NEGATIVE (NEGATIVE); PROTEIN, URINE AUTO NEGATIVE (NEGATIVE); RBC, URINE AUTO 0 /HPF (0-3); SPECIFIC GRAVITY URINE AUTO 1.019 (1.002-1.035); SQUAMOUS EPITHELIAL CELL UR AU 1 /HPF (0-6); WBC, URINE AUTO 2 /HPF (0-3)
[2021-10-16 12:52] LABS: BASO # 0.1 10^3/uL (0.0-0.2); BASO % 0.5 % (0.0-1.0); EOS # 0.5 10^3/uL (0.0-0.5); EOS % 4.6 % (0.0-3.0); HEMATOCRIT 35.3 % (36.0-47.0); HEMOGLOBIN 10.3 g/dl (12.0-15.5); LYMPH # 2.1 10^3/uL (1.5-5.0); LYMPH % 21.1 % (24.0-44.0); MEAN CORPUSCULAR HEMOGLOBIN 25.8 pg (27.0-33.0); MEAN CORPUSCULAR HGB CONC 29.2 g/dl (32.0-36.5); MEAN CORPUSCULAR VOLUME 88.5 fl (80.0-96.0); MONO # 0.7 10^3/uL (0.0-0.8); MONO % 6.7 % (2.0-8.0); NEUTROPHILS # 6.6 10^3/uL (1.5-8.5); NEUTROPHILS % 66.8 % (36.0-66.0); PLATELET COUNT, AUTOMATED 301 10^3/uL (150-450); RED BLOOD COUNT 3.99 10^6/uL (4.00-5.40); WHITE BLOOD COUNT 9.8 10^3/uL (4.0-10.0)
[2021-10-16 13:25] LABS: ALT/SGPT 26 U/L (12-78); BILIRUBIN,TOTAL 0.3 MG/DL (0.2-1.0); BLOOD UREA NITROGEN 17 MG/DL (7-18); C REACTIVE PROTEIN QUANTITATIV 2.56 MG/DL (0.00-0.30); CARBON DIOXIDE LEVEL 35 MEQ/L (21-32); CHLORIDE LEVEL 100 MEQ/L (98-107); COMPLEMENT C3 153 MG/DL (90-180); COMPLEMENT C4 24 MG/DL (10-40); CREATININE FOR GFR 0.56 MG/DL (0.55-1.30); ERYTHROCYTE SEDIMENTATION RATE 63 mm/hr (0-30); GLOMERULAR FILTRATION RATE > 60.0 (>45); GLUCOSE, FASTING 124 MG/DL (70-100); POTASSIUM SERUM 4.4 MEQ/L (3.5-5.1); SODIUM LEVEL 139 MEQ/L (136-145); TOTAL PROTEIN 6.9 GM/DL (6.4-8.2)
[2021-10-16 13:27] LABS: TOTAL PROTEIN,RANDOM URINE 20.1 MG/DL (0.0-12.0)
== END ==
LOC: M SFHCRHEU 10:58
PROVIDERS: ATTEND Internal Medicine Rheumatology
DX: H04.123 Dry eye syndrome of bilateral lacrimal glands (principal); M35.3 Polymyalgia rheumatica

== ENCOUNTER → 2021-12-11 | Outpatient (CLI) | payer OTHER, MEDICARE ==
[~2021-12-11] MED LIST changes: +ALBU2.5V10 NEB; -ALBU83IN NEB
== END ==
LOC: M RAD 12:22
PROVIDERS: ATTEND Internal Medicine Rheumatology
DX: M35.3 Polymyalgia rheumatica (principal); M25.741 Osteophyte, right hand; M25.742 Osteophyte, left hand; M77.31 Calcaneal spur, right foot; M77.32 Calcaneal spur, left foot

== ENCOUNTER → 2022-02-04 | Outpatient (CLI) | payer OTHER | LOC: M PAIN 10:15 | PROVIDERS: ATTEND Nurse Practitioner Family | DX: M51.16 Intervertebral disc disorders with radiculopathy, lumbar region (principal); E11.9 Type 2 diabetes mellitus without complications; F41.9 Anxiety disorder, unspecified; F32.A Depression, unspecified; M79.7 Fibromyalgia; G47.00 Insomnia, unspecified; M54.2 Cervicalgia; E66.9 Obesity, unspecified; R13.10 Dysphagia, unspecified; M47.812 Spondylosis without myelopathy or radiculopathy, cervical region; I10 Essential (primary) hypertension; R32 Unspecified urinary incontinence; M35.00 Sjogren syndrome, unspecified; H93.19 Tinnitus, unspecified ear; F17.210 Nicotine dependence, cigarettes, uncomplicated; Z90.49 Acquired absence of other specified parts of digestive tract; Z98.41 Cataract extraction status, right eye; Z98.42 Cataract extraction status, left eye; Z85.828 Personal history of other malignant neoplasm of skin; Z96.652 Presence of left artificial knee joint; Z79.84 Long term (current) use of oral hypoglycemic drugs; Z79.1 Long term (current) use of non-steroidal anti-inflammatories (NSAID); Z79.899 Other long term (current) drug therapy; Z88.5 Allergy status to narcotic agent; Z88.8 Allergy status to other drugs, medicaments and biological substances; Z68.42 Body mass index [BMI] 45.0-49.9, adult ==

== ENCOUNTER → 2022-03-15 | Outpatient (REF) | payer OTHER | LOC: M SFHCDERM 15:26 | PROVIDERS: ATTEND Physician Assistant | DX: L70.0 Acne vulgaris (principal); L72.0 Epidermal cyst; L73.9 Follicular disorder, unspecified ==

== ENCOUNTER → 2022-03-28 | Outpatient (CLI) | payer OTHER ==
[~2022-03-28] MED LIST changes: +ALBU8.5H INH; +NICO1DIS12 TOP
== END ==
LOC: M PAIN 14:45
PROVIDERS: ATTEND Nurse Practitioner Family
DX: M51.16 Intervertebral disc disorders with radiculopathy, lumbar region (principal); E11.9 Type 2 diabetes mellitus without complications; F41.9 Anxiety disorder, unspecified; F32.A Depression, unspecified; M79.7 Fibromyalgia; G47.00 Insomnia, unspecified; M54.2 Cervicalgia; E66.9 Obesity, unspecified; R13.10 Dysphagia, unspecified; I10 Essential (primary) hypertension; M47.812 Spondylosis without myelopathy or radiculopathy, cervical region; R32 Unspecified urinary incontinence; M35.00 Sjogren syndrome, unspecified; F17.210 Nicotine dependence, cigarettes, uncomplicated; Z79.1 Long term (current) use of non-steroidal anti-inflammatories (NSAID); Z88.5 Allergy status to narcotic agent; Z88.8 Allergy status to other drugs, medicaments and biological substances; Z68.43 Body mass index [BMI] 50.0-59.9, adult

== ENCOUNTER → 2022-05-31 | Outpatient (REF) | payer MEDICARE, OTHER ==
[2022-05-31 18:37] LABS: BASO # 0.1 10^3/uL (0.0-0.2); BASO % 0.5 % (0.0-1.0); EOS # 0.3 10^3/uL (0.0-0.5); EOS % 3.3 % (0.0-3.0); HEMATOCRIT 30.3 % (36.0-47.0); HEMOGLOBIN 8.6 g/dl (12.0-15.5); LYMPH # 2.5 10^3/uL (1.5-5.0); LYMPH % 25.2 % (24.0-44.0); MEAN CORPUSCULAR HEMOGLOBIN 23.8 pg (27.0-33.0); MEAN CORPUSCULAR HGB CONC 28.4 g/dl (32.0-36.5); MEAN CORPUSCULAR VOLUME 83.7 fl (80.0-96.0); MONO # 0.7 10^3/uL (0.0-0.8); MONO % 7.1 % (2.0-8.0); NEUTROPHILS # 6.2 10^3/uL (1.5-8.5); NEUTROPHILS % 63.5 % (36.0-66.0); PLATELET COUNT, AUTOMATED 412 10^3/uL (150-450); RED BLOOD COUNT 3.62 10^6/uL (4.00-5.40); WHITE BLOOD COUNT 9.7 10^3/uL (4.0-10.0)
[2022-05-31 18:43] LABS: HEMOGLOBIN A1c 6.4 % (4.0-6.0)
== END ==
LOC: M LAB REF 17:28
PROVIDERS: ATTEND Pediatrics
DX: E11.69 Type 2 diabetes mellitus with other specified complication (principal); D50.9 Iron deficiency anemia, unspecified

== ENCOUNTER → 2022-09-16 | Outpatient (CLI) | payer MEDICARE, OTHER ==
[~2022-09-16] MED LIST changes: +FERR325T3 PO
== END ==
LOC: M LABSMTC 11:27
PROVIDERS: ATTEND Anesthesiology
DX: Z01.812 Encounter for preprocedural laboratory examination (principal)

== ENCOUNTER 2022-09-17 06:44 | Day surgery (SDC) | payer MEDICARE, OTHER ==
[~2022-09-17] VITALS: Ht 152.4 cm; Wt 176.0 kg
[~2022-09-17 06:44] MED LIST changes: +NS 1,000 ML IV ONE
[2022-09-17] MEDS ORDERED: LIDOCAINE 2% 100MG/5ML SDV (FOR ANES.) As Ordered ONE (07:50)
[2022-09-17] MEDS ORDERED: propofoL 200 MG/20 ML VIAL As Ordered ONE ×2 (07:50→07:59)
[2022-09-17] MEDS ORDERED: fentaNYL 100 MCG/2 ML INJECTION As Ordered ONE (07:50)
[2022-09-17 08:29] VITALS: BP 163/72
== END 2022-09-17 08:41 | disposition home or self-care (01) ==
LOC: M OPP 06:44
PROVIDERS: ATTEND Surgery
DX: Z86.010 Personal history of colon polyps (principal); K57.30 Diverticulosis of large intestine without perforation or abscess without bleeding; K22.89 Other specified disease of esophagus; K29.70 Gastritis, unspecified, without bleeding; K22.70 Barrett's esophagus without dysplasia; D50.9 Iron deficiency anemia, unspecified; E11.9 Type 2 diabetes mellitus without complications; I10 Essential (primary) hypertension; J44.9 Chronic obstructive pulmonary disease, unspecified; M79.7 Fibromyalgia; R00.2 Palpitations; F17.200 Nicotine dependence, unspecified, uncomplicated; Z79.02 Long term (current) use of antithrombotics/antiplatelets; Z79.51 Long term (current) use of inhaled steroids; Z79.82 Long term (current) use of aspirin; Z79.899 Other long term (current) drug therapy; Z88.5 Allergy status to narcotic agent; Z53.8 Procedure and treatment not carried out for other reasons
CPT/HCPCS: 43239; 88305; G0105; J3010

== ENCOUNTER → 2022-11-19 | Outpatient (REF) | payer MEDICARE, OTHER, MEDICAID ==
[~2022-11-19] MED LIST changes: +FERR325T19 PO; -NS 1,000 ML IV ONE
[2022-11-19 17:31] LABS: TOTAL 25(OH) VITAMIN D 29.7 NG/ML (20.0-100.0)
== END ==
LOC: M LAB REF 16:17
PROVIDERS: ATTEND Pediatrics
DX: E11.69 Type 2 diabetes mellitus with other specified complication (principal); R74.8 Abnormal levels of other serum enzymes; Z79.899 Other long term (current) drug therapy

== ENCOUNTER → 2022-12-19 | Outpatient (REF) | payer MEDICARE, OTHER ==
[2022-12-19 18:12] LABS: ALBUMIN 3.2 G/DL (3.2-5.2); ALKALINE PHOSPHATASE 261 U/L (46-116); ALT/SGPT 67 U/L (7.0-40); AST/SGOT 53 U/L (<34); BILIRUBIN,DIRECT < 0.1 MG/DL (<0.4); BILIRUBIN,TOTAL < 0.2 MG/DL (0.3-1.2)
[2022-12-19 19:40] LABS: LABILE ALKPHOS 152 U/L
[2022-12-19 19:41] LABS: % LABILE ALKALINE PHOSPHATASE 58.2 %
[2022-12-19 19:42] LABS: STABLE ALKPHOS 109 U/L
== END ==
LOC: M LAB REF 17:24
PROVIDERS: ATTEND Pediatrics
DX: R74.8 Abnormal levels of other serum enzymes (principal)

== ENCOUNTER → 2023-02-11 | Outpatient (CLI) | payer MEDICARE, OTHER ==
[~2023-02-11] MED LIST changes: -ROPI1TAB3; -ROPI1TAB3 PO; +ROPI1TAB73; +ROPI1TAB73 PO; -ROPI2TAB3 PO; +ROPI2TAB46 PO
== END ==
LOC: M RAD 07:57
PROVIDERS: ATTEND Pediatrics
DX: R74.01 Elevation of levels of liver transaminase levels (principal)

== ENCOUNTER → 2023-03-10 | Outpatient (CLI) | payer MEDICARE, OTHER | LOC: M SOG 08:06 | PROVIDERS: ATTEND Physician Assistant | DX: M19.032 Primary osteoarthritis, left wrist (principal); M87.03 Idiopathic aseptic necrosis of radius, ulna and carpus ==

== ENCOUNTER → 2023-03-31 | Outpatient (CLI) | payer MEDICARE, OTHER | LOC: M WHC 14:22 | PROVIDERS: ATTEND Pediatrics | DX: Z12.31 Encounter for screening mammogram for malignant neoplasm of breast (principal); Z13.820 Encounter for screening for osteoporosis ==

== ENCOUNTER → 2023-07-01 | Outpatient (REF) | payer MEDICARE, OTHER ==
[~2023-07-01] MED LIST changes: -OXYB5TAB10 PO; +OXYB5TAB11 PO
[2023-07-01 17:19] LABS: BASO # 0.1 10^3/uL (0.0-0.2); BASO % 0.5 % (0.0-1.0); EOS # 0.4 10^3/uL (0.0-0.5); EOS % 3.9 % (0.0-3.0); HEMATOCRIT 40.5 % (36.0-47.0); HEMOGLOBIN 12.5 g/dl (12.0-15.5); LYMPH # 1.8 10^3/uL (1.5-5.0); LYMPH % 18.6 % (24.0-44.0); MEAN CORPUSCULAR HEMOGLOBIN 30.7 pg (27.0-33.0); MEAN CORPUSCULAR HGB CONC 30.9 g/dl (32.0-36.5); MEAN CORPUSCULAR VOLUME 99.5 fl (80.0-96.0); MONO # 0.7 10^3/uL (0.0-0.8); MONO % 7.3 % (2.0-8.0); NEUTROPHILS # 6.5 10^3/uL (1.5-8.5); NEUTROPHILS % 69.5 % (36.0-66.0); PLATELET COUNT, AUTOMATED 293 10^3/uL (150-450); RED BLOOD COUNT 4.07 10^6/uL (4.00-5.40); WHITE BLOOD COUNT 9.4 10^3/uL (4.0-10.0)
[2023-07-01 17:22] LABS: HEMOGLOBIN A1c 6.3 % (4.0-6.0)
[2023-07-01 17:33] LABS: PERCENT SATURATION 14.2 % (13.2-45.0)
== END ==
LOC: M LAB REF 16:26
PROVIDERS: ATTEND Pediatrics
DX: E11.69 Type 2 diabetes mellitus with other specified complication (principal)

== ENCOUNTER → 2023-10-03 | Outpatient (REF) | payer MEDICARE, OTHER ==
[~2023-10-03] MED LIST changes: -ASPI-161 PO; +ASPI-615 PO; -OXYB5TAB11 PO; +OXYB5TAB14 PO; +PROP15DR15 OU; -PROP15DR3 OU
[2023-10-03 17:41] LABS: CREATININE, URINE 39.7 MG/DL; MAU/CREAT RATIO 12.5 MCG/MG (0.0-30.0)
[2023-10-03 18:27] LABS: BASO # 0.1 10^3/uL (0.0-0.2); BASO % 0.6 % (0.0-1.0); EOS # 0.3 10^3/uL (0.0-0.5); EOS % 2.8 % (0.0-3.0); HEMOGLOBIN 12.6 g/dl (12.0-15.5); LYMPH # 2.3 10^3/uL (1.5-5.0); LYMPH % 21.6 % (24.0-44.0); MEAN CORPUSCULAR HEMOGLOBIN 30.1 pg (27.0-33.0); MEAN CORPUSCULAR HGB CONC 30.7 g/dl (32.0-36.5); MEAN CORPUSCULAR VOLUME 97.9 fl (80.0-96.0); MONO # 0.6 10^3/uL (0.0-0.8); MONO % 5.3 % (2.0-8.0); NEUTROPHILS # 7.3 10^3/uL (1.5-8.5); NEUTROPHILS % 69.4 % (36.0-66.0); PLATELET COUNT, AUTOMATED 338 10^3/uL (150-450); RED BLOOD COUNT 4.19 10^6/uL (4.00-5.40); WHITE BLOOD COUNT 10.5 10^3/uL (4.0-10.0)
[2023-10-03 18:42] LABS: HEMOGLOBIN A1c 6.3 % (4.0-6.0)
[2023-10-03 18:47] LABS: BLOOD UREA NITROGEN 14 MG/DL (9-23); CALCIUM LEVEL 9.8 MG/DL (8.3-10.6); CARBON DIOXIDE LEVEL 35 MMOL/L (20-31); CHLORIDE LEVEL 100 MMOL/L (98-107); CREATININE FOR GFR 0.56 MG/DL (0.55-1.30); GLOMERULAR FILTRATION RATE > 60.0 (>45); GLUCOSE, FASTING 132 MG/DL (74-106); POTASSIUM SERUM 4.7 MMOL/L (3.5-5.1); SODIUM LEVEL 140 MMOL/L (136-145)
== END ==
LOC: M LAB REF 16:29
PROVIDERS: ATTEND Pediatrics
DX: E11.69 Type 2 diabetes mellitus with other specified complication (principal); M70.22 Olecranon bursitis, left elbow

== ENCOUNTER → 2024-06-08 | Outpatient (REF) | payer MEDICARE ==
[~2024-06-08] MED LIST changes: -FEXO-117; +FEXO-193; +NYST1POW3 TOP; -NYST1POW9 TOP
[2024-06-08 14:42] LABS: HEMOGLOBIN A1c 7.9 % (4.0-6.0)
[2024-06-08 14:49] LABS: IRON (FE) 19 UG/DL (50-170)
[2024-06-08 14:51] LABS: BLOOD UREA NITROGEN 27 MG/DL (9-23); CALCIUM LEVEL 9.6 MG/DL (8.3-10.6); CARBON DIOXIDE LEVEL 34 MMOL/L (20-31); CHLORIDE LEVEL 100 MMOL/L (98-107); CHOLESTEROL LEVEL 125 MG/DL (<200); CHOLESTEROL RISK RATIO 2.45 (<5); CREATININE FOR GFR 0.71 MG/DL (0.55-1.30); GLOMERULAR FILTRATION RATE > 60.0 (>45); GLUCOSE, FASTING 153 MG/DL (74-106); POTASSIUM SERUM 4.9 MMOL/L (3.5-5.1); SODIUM LEVEL 137 MMOL/L (136-145); TRIGLYCERIDES LEVEL 85 MG/DL (<150)
[2024-06-08 14:52] LABS: VITAMIN B12 LEVEL 362 PG/ML (211-911)
[2024-06-08 15:04] LABS: PERCENT SATURATION 4.3 % (13.2-45.0); TOTAL IRON BINDING CAPACITY 440 UG/DL (250-425)
== END ==
LOC: M LAB REF 13:15
PROVIDERS: ATTEND Pediatrics
DX: I10 Essential (primary) hypertension (principal); E61.1 Iron deficiency; E78.5 Hyperlipidemia, unspecified; E11.40 Type 2 diabetes mellitus with diabetic neuropathy, unspecified; E11.69 Type 2 diabetes mellitus with other specified complication; R29.898 Other symptoms and signs involving the musculoskeletal system

== ENCOUNTER → 2024-07-15 | Outpatient (CLI) | payer MEDICARE, OTHER ==
[~2024-07-15] MED LIST changes: +PROHANCE 279.3MG/ML 15ML VIAL As Ordered ONE; +PROHANCE 279.3MG/ML 5ML VIAL As Ordered ONE
== END ==
LOC: M RAD 16:37
PROVIDERS: ATTEND Internal Medicine Pulmonary Disease
DX: C34.90 Malignant neoplasm of unspecified part of unspecified bronchus or lung (principal)
CPT/HCPCS: 70553; A9576

== ENCOUNTER → 2024-07-27 | Outpatient (CLI) | payer MEDICARE ==
[~2024-07-27] MED LIST changes: +FLUT1BLS8; +NICO7DIS30 TOP; -PROHANCE 279.3MG/ML 15ML VIAL As Ordered ONE; -PROHANCE 279.3MG/ML 5ML VIAL As Ordered ONE
== END ==
LOC: M ONCR 10:53
PROVIDERS: ATTEND General Practice
DX: C34.32 Malignant neoplasm of lower lobe, left bronchus or lung (principal); C34.11 Malignant neoplasm of upper lobe, right bronchus or lung; F17.218 Nicotine dependence, cigarettes, with other nicotine-induced disorders; Z88.5 Allergy status to narcotic agent; Z79.1 Long term (current) use of non-steroidal anti-inflammatories (NSAID); Z79.51 Long term (current) use of inhaled steroids; Z79.899 Other long term (current) drug therapy; Z79.82 Long term (current) use of aspirin
CPT/HCPCS: 99406; G0463

== ENCOUNTER 2024-08-19 08:05 | Outpatient (RCR) | payer MEDICARE ==
[2024-08-23] MEDS ORDERED: SEMA3TAB4 (10:37)
== END 2024-08-20 ==
LOC: M ONCR 08:05
PROVIDERS: ATTEND General Practice
DX: Z51.0 Encounter for antineoplastic radiation therapy (principal); C34.32 Malignant neoplasm of lower lobe, left bronchus or lung

== ENCOUNTER 2024-09-03 09:43 | Outpatient (RCR) | payer MEDICARE ==
[~2024-09-03 09:43] MED LIST changes: +SEMA3TAB4
== END 2024-09-20 ==
LOC: M ONCR 09:43
PROVIDERS: ATTEND General Practice
DX: Z51.0 Encounter for antineoplastic radiation therapy (principal); C34.32 Malignant neoplasm of lower lobe, left bronchus or lung

== ENCOUNTER → 2025-02-01 | Outpatient (REF) | payer MEDICARE ==
[~2025-02-01] MED LIST changes: +AMMO12CR4 TOP; -AMMO12CR7 TOP; -ASPI-310 PO; +ASPI-730 PO
[2025-02-01 13:19] LABS: CREATININE, URINE 71.2 MG/DL; MALB URINE SIEMENS < 3.0 MG/L
[2025-02-01 15:38] LABS: BASO # 0.0 10^3/uL (0.0-0.2); BASO % 0.3 % (0.0-1.0); EOS # 0.5 10^3/uL (0.0-0.5); EOS % 4.3 % (0.0-3.0); LYMPH # 2.5 10^3/uL (1.5-5.0); LYMPH % 21.7 % (24.0-44.0); MONO # 0.6 10^3/uL (0.0-0.8); MONO % 5.5 % (2.0-8.0); NEUTROPHILS # 7.8 10^3/uL (1.5-8.5); NEUTROPHILS % 67.9 % (36.0-66.0); PLATELET COUNT, AUTOMATED 296 10^3/uL (150-450)
[2025-02-01 15:51] LABS: ESTIMATED AVERAGE GLUCOSE 123.0 MG/DL (60-110)
[2025-02-01 16:06] LABS: CHOLESTEROL LEVEL 124.0 MG/DL (<200); CHOLESTEROL RISK RATIO 2.63 (<5); IRON (FE) 49.0 UG/DL (50-170); LDL CHOLESTEROL 53.6 MG/DL (<100); NON-HDL-C 77.0 MG/DL; TRIGLYCERIDES LEVEL 117.0 MG/DL (<150)
[2025-02-01 16:07] LABS: PERCENT SATURATION 14.9 % (13.2-45.0)
== END ==
LOC: M LAB REF 12:09
PROVIDERS: ATTEND Pediatrics
DX: E11.69 Type 2 diabetes mellitus with other specified complication (principal); D50.9 Iron deficiency anemia, unspecified; E78.5 Hyperlipidemia, unspecified

== ENCOUNTER → 2025-03-15 | Outpatient (CLI) | payer MEDICARE ==
[~2025-03-15] MED LIST changes: +SEMA7TAB2
== END ==
LOC: M PLARAD 14:32
PROVIDERS: ATTEND Student in an Organized Health Care Education/Training Program
DX: C34.32 Malignant neoplasm of lower lobe, left bronchus or lung (principal); C34.11 Malignant neoplasm of upper lobe, right bronchus or lung
CPT/HCPCS: 78815; A9552

== ENCOUNTER → 2025-04-05 | Outpatient (CLI) | payer MEDICARE ==
[~2025-04-05] MED LIST changes: +PROHANCE 279.3MG/ML 15ML VIAL As Ordered ONE; +PROHANCE 279.3MG/ML 5ML VIAL As Ordered ONE
== END ==
LOC: M RAD 15:24
PROVIDERS: ATTEND Student in an Organized Health Care Education/Training Program
DX: C34.90 Malignant neoplasm of unspecified part of unspecified bronchus or lung (principal)
CPT/HCPCS: 70553; A9576

== ENCOUNTER → 2025-04-20 | Outpatient (CLI) | payer MEDICARE ==
[~2025-04-20] MED LIST changes: -PROHANCE 279.3MG/ML 15ML VIAL As Ordered ONE; -PROHANCE 279.3MG/ML 5ML VIAL As Ordered ONE
== END ==
LOC: M ONCR 09:44
PROVIDERS: ATTEND General Practice
DX: C34.32 Malignant neoplasm of lower lobe, left bronchus or lung (principal); C34.11 Malignant neoplasm of upper lobe, right bronchus or lung; F17.218 Nicotine dependence, cigarettes, with other nicotine-induced disorders; Z92.3 Personal history of irradiation; Z88.5 Allergy status to narcotic agent; Z79.1 Long term (current) use of non-steroidal anti-inflammatories (NSAID); Z79.51 Long term (current) use of inhaled steroids; Z79.82 Long term (current) use of aspirin; Z79.85 Long-term (current) use of injectable non-insulin antidiabetic drugs; Z79.899 Other long term (current) drug therapy

== ENCOUNTER 2025-05-03 13:20 | Outpatient (RCR) | payer MEDICARE ==
[2025-05-24] MEDS ORDERED: MIRA3350 PO (08:56)
[2025-05-24] MEDS ORDERED: SENN1TAB85 PO (08:56)
== END 2025-05-22 ==
LOC: M ONCR 13:20
PROVIDERS: ATTEND General Practice
DX: Z51.0 Encounter for antineoplastic radiation therapy (principal); C34.32 Malignant neoplasm of lower lobe, left bronchus or lung

== ENCOUNTER 2025-05-27 13:45 | Outpatient (RCR) | payer MEDICARE ==
[~2025-05-27 13:45] MED LIST changes: +MIRA3350 PO; +SENN1TAB85 PO
== END 2025-06-22 ==
LOC: M ONCR 13:45
PROVIDERS: ATTEND General Practice
DX: Z51.0 Encounter for antineoplastic radiation therapy (principal); C34.32 Malignant neoplasm of lower lobe, left bronchus or lung